=== PATIENT | male | born 1960 | race Caucasian/White ===

== ENCOUNTER → 2024-04-07 13:14 | Outpatient (REF) | payer BC, SELFPAY | LOC: RCS 13:14 | PROVIDERS: ATTENDING PHYSICIAN Internal Medicine Cardiovascular Disease; FAMILY PHYSICIAN Family Medicine | DX: I25.5 Ischemic cardiomyopathy (principal); I10 Essential (primary) hypertension; I50.22 Chronic systolic (congestive) heart failure; R10.13 Epigastric pain | CPT/HCPCS: 93017 ==

== ENCOUNTER 2024-04-08 16:05 | Inpatient (IN) | payer BC, SELFPAY ==
[2024-04-08] VITALS (28 sets, daily range): BP systolic 109–149; BP diastolic 77–101; BMI 25.2
[2024-04-08 04:23] LABS: % Basophils 0.5 % (0-2); % Eosinophils 3.7 % (0-6); % Immature Granulocytes 0.4 % (0-0.5); % Lymphocytes 21.1 % (20.5-51.1); % Monocytes 6.9 % (1.7-9.3); % Neutrophils 67.4 % (42.2-75.2); Absolute Eosinophils 0.2 10^3/uL (0-0.7); Absolute Lymphocytes 1.2 10^3/uL (1.2-3.4); Absolute Monocytes 0.4 10^3/uL (0.1-0.6); Absolute Neutrophils 3.8 10^3/uL (1.4-6.5); Hematocrit 44.2 % (39.0-52.0); Hemoglobin 16.3 g/dL (13.0-18.0); Mean Corp Hgb Conc. 36.9 g/dL (33.0-37.0); Mean Platelet Volume 9.8 fL (7.4-10.4); Nucleated Red Blood Cells % 0 % (-); Platelet Count 199 10^3/uL (130-400); Red Blood Cell Count 5.26 10^6/uL (4.70-6.10); Red Cell Dist. Width 12.1 % (11.5-14.5); White Blood Cell Count 5.7 10^3/uL (4.8-10.8)
[2024-04-08 04:37] LABS: ALT (SGPT) 27 U/L (0-50); AST (SGOT) 24 U/L (17-59); Albumin 4.6 g/dl (3.5-5.0); Alkaline Phosphatase 83 U/L (38-126); Blood Urea Nitrogen 15 mg/dl (9-20); Calcium 9.5 mg/dl (8.4-10.2); Carbon Dioxide 28 mmol/L (22-30); Chloride 103 mmol/L (98-107); Estimated Creatinine Clearance 92 ml/min; Glucose 124 mg/dl (70-99); Potassium 3.6 mmol/L (3.5-5.1); Sodium 142 mmol/L (135-145); Total Bilirubin 1.4 mg/dl (0.2-1.3); Total Protein 6.9 g/dl (6.3-8.2); eGFR > 60.00
[2024-04-08 04:44] LABS: Troponin I 0.019 ng/ml
--- NOTE | 2024-04-08 04:48 | ED.GENMED ---
History of Present Illness
General
Chief Complaint: Chest Pain
Source: patient
Exam Limitations: none
Time Seen by Provider: 04/08/24 04:06
Nursing documentation reviewed up to this point in time: agreed with
History of Present Illness
History of Present Illness:
This is a 64-year-old male that presents with substernal chest pain that began approximate 1 hour ago. Patient states that lately he has been having intermittent chest pain, especially with exertion. He was seen by Dr. Ramirez and had a stress
test yesterday. The stress test was unsuccessful and it was recommended that patient undergo a catheterization. He was supposed to be contacted this morning to schedule 1. Tonight he awakened from sleep with this substernal nonradiating chest
pain. Patient does have a cardiac history. He had a cardiac event in 2006 that resulted in a catheterization. Patient denies fever, chills, nausea or vomiting. Patient states that the pain is brought on with exertion. He states that he gets
chest pain when he walks his dogs. This is not typical of him. He does report a significant family history of cardiac disease. He has been on Plavix since 2006. Denies any other complaints at this time. He is a non-smoker.
Past History
Past History
ED Past Medical History: CAD, HTN, Hypercholesterolemia and VT
ED Past Surgical History: Cardiac (stents x2, revised once, Amy)
Social History
Tobacco: Non-smoker
Alcohol: Occasional
Drug: None
Personal:
Living: with family
Review of Systems
Review of Systems
Allergies reviewed?: Yes
All Other Systems: ROS reviewed and negative except as documented in HPI and ROS
Constitutional: Reports no symptoms
EENT: Reports no symptoms
Respiratory: Reports no symptoms
Cardiac: Reports chest pain
ABD/GI: Reports no symptoms
: Reports no symptoms
Musculoskeletal: Reports no symptoms
Skin: Reports no symptoms
Neurological: Reports no symptoms
Endocrine: Reports no symptoms
Hematologic/Lymphatic: Reports no symptoms
Psychiatric: Reports no symptoms
Phy Exam
General Physical Exam
General Presentation: well appearing and no apparent distress
General Skin: warm and dry
General Habitus: normal
General Mental: alert
General Hydration: appears well hydrated
ENT Exam
ENT Exam: EOMI, pharynx normal, neck supple and normocephalic
Eye Exam
Eye Exam: PERRL, cornea clear and conjunctiva normal
Cardiovascular Exam
Cardiovascular Exam: regular rate/rhythm, no edema, no murmur and normal peripheral pulses
Pulmonary Exam
Pulmonary Exam: lungs clear, no respiratory distress, no rales, no crackles, no rhonchi, no stridor, no wheezing and no cough
Gastrointestinal Exam
Gastrointestinal Exam: normal bowel sounds, non tender, soft, no organomegaly, no pulsatile mass and non distended
Neurological Exam
Neurological Exam: alert, oriented x3, no motor deficits and speech normal
Musculoskeletal Exam
Musculoskeletal Exam: full ROM and no edema
Skin Exam
Skin Exam: normal color, warm/dry, no rash and no petechia
Psychiatric Exam
Psychiatric Exam: normal mood/affect
Scores
Heart Score for Chest Pain Patients
STEMI patient?: No
History: Highly Suspicious
ECG: Normal
Age: >/= 65 years
Risk Factors: >/= 3 Risk Factors or History of CAD
Troponin: >1 - <3 x Normal Limit
Heart Score for Chest Pain Patients: 7
Heart Score Risk: 72.7 % MACE over next 6 weeks
Course
Orders/Labs/Results
Orders:
Orders
04/08/24 03:52
Electrocardiogram (*1) Urgent
Reason for Study: Chest Pain
Cardiac Monitoring- Treatment ONCE
EKG- Treatment ONCE
IV Insert/Care/Rem.- Treatment PRN
O2 Therapy [RESP] Urgent
Titrate/Wean O2 to maintain O2 sat greater than (%): 90
Special Instructions: Maintain sats >/=90%
Pulse Ox/spot Check [RESP] Urgent
Quantity: 1
Special Instructions: ON ROOM AIR
04/08/24 04:11
Complete Blood Count/With Diff Urgent
Comprehensive Metabolic Panel Urgent
Troponin I Urgent
Abnormal Lab Results
04/08/24
04:11
Glucose 124 H mg/dl
(70-99)
Total Bilirubin 1.4 H mg/dl
(0.2-1.3)
04/08/24 04:11
04/08/24 04:11
Vital Signs
Initial and Last Documented VS:
Initial Vital Signs
Pulse Resp
99 13
04/08/24 04:02 04/08/24 04:02
Last Documented Vital Signs
Pulse Resp BP Pulse Ox
91 13 137/97 96
04/08/24 04:30 04/08/24 04:30 04/08/24 04:08 04/08/24 04:30
*Critical Care Note
Total Time (30-74mins, 75-104mins- exclusive of procedures): Not Applicable
ED Attending Note
-
Portions of this chart may have been created with voice recognition software.� Occasional wrong word or��sound alike� substitutions may have occurred due to the inherent limitations of voice recognition software.
Discharge Plan
Departure
Patient Disposition: Admit
Date of Disposition: 04/08/24
Time of Disposition: 04:56
Admit to: IVU
Presentation/result/management discussed w/ accepting MD/DO: Hospitalist
Discharge Problem:
Chest pain
Prescriptions:
No Action
atenolol 25 MG tablet
25 mg PO DAILY
clopidogrel 75 MG tablet
75 mg PO DAILY
simvastatin 80 MG tablet
40 mg PO HS
aspirin 81 MG tablet,delayed release (DR/EC)
81 mg PO DAILY
lisinopril 5 MG tablet
5 mg PO DAILY
Referrals:
UNKNOWN - PT NOT,INTERVIEWE [Family Provider] -
Interventions
Interventions:
*Risk Screen - Suicide Last Done: 04/08/24 04:09
*General Assessment Last Done: 04/08/24 04:03
*Neglect/Abuse Screening Last Done: 04/08/24 04:09
ED- Fall Risk Assessment Last Done: 04/08/24 04:03
*ED COVID-19 Vaccine History Last Done: 04/08/24 04:03
ED- Cardiac Assessment Last Done: 04/08/24 04:03
Discharge Date and Time
Print Language: IRAQI
[2024-04-08] MEDS: ASPIRIN 325 MG PO (05:00)
--- NOTE | 2024-04-08 05:20 | HPS.HSE ---
Family Physician
-
Family Physician: INTERVIEWE UNKNOWN - PT NOT
Chief Complaint
-
Chest pain.
History of Present Illness
This is a 64-year-old male with history of CAD s/p cath 2006 with multiple stents on dual antiplatelet therapy, hypertension presenting to ED with chest pain.
Patient reports he has been having epigastric to substernal chest discomfort for the last 2 weeks. He reports that this is exacerbated by activity such as walking and is relieved by rest. He does not have dyspnea on exertion. He has no nausea or
vomiting. He was evaluated by his primary care physician which showed normal EKG and no acute abnormalities on his labs. He was pending a right upper quadrant ultrasound. When it was decided that he should see his nurse gynecology for the exertional
component of this epigastric discomfort.
Patient had a exercise stress test yesterday which he was unable to complete. Due to the failure of that Dr. Mathias scheduled for a cardiac cath this morning.
Patient reported 18 of vegetarian hamburger after oral in the evening. At around 12 midnight he woke up spontaneously and noticed epigastric discomfort again. This was not associated with any nausea vomiting or diaphoresis. He had no shortness of
breath. ED he is not when he stood up. He was told to come to the emergency department if he felt any chest discomfort pending he is cardiac cath.
Upon arrival in the emergency department 1 hour later he stated that the chest pain at that he is remarkably but it is still present and not reproducible with palpation.
Blood pressure was 140/100, pulse rate 89 satting 98% on room air. ECG showed normal sinus rhythm with a rate of 94 and no acute ischemic changes. Unchanged from prior. Troponin was 0.019. CBC was unremarkable. Chemistries only notable for a
bilirubin of around 1.4.
Medical History
Past Medical History
Past Medical History: Reports CAD (Status post 10 x 2) and HTN
Past Surgical History: Reports None
Social History
Tobacco: Non-smoker
Alcohol: Occasional
Drug: None
Personal:
Living: With Family
Employment: Employed
Family History
Family History: Not pertinent
Allergies / Home Medications
Allergies reflects when Allergies were last updated in [employer].
Home Medications with original date entered in [employer]
Allergy/Medication List:
Allergies
Allergy/AdvReac Type Severity Reaction Status Date / Time
NKA - No Known Allergies Allergy Unknown Uncoded 04/08/24 03:52
Home Medications
aspirin 81 mg tablet,delayed release 81 mg PO DAILY 10/29/10
atenolol 25 mg tablet 25 mg PO DAILY 10/29/10
clopidogrel 75 mg tablet 75 mg PO DAILY 10/29/10
Review of Systems
-
History Source: Patient
Constitutional: Reports No Symptoms
EENT: Reports No Symptoms
Respiratory: Reports No Symptoms
Cardiac: Reports Chest Pain
Abdomen/GI: Reports No Symptoms
: Reports No Symptoms
Musculoskeletal: Reports No Symptoms
Skin: Reports No Symptoms
Neurological: Reports No Symptoms
Endocrine: Reports No Symptoms
Hematologic/Lymphatic: Reports No Symptoms
Psych: Reports No Symptoms
Physical Exam
Vital Signs
Vital Signs
Pulse Resp BP Pulse Ox
91 13 137/97 96
04/08/24 04:30 04/08/24 04:30 04/08/24 04:08 04/08/24 04:30
Physical Exam
General: Well Developed, Well Nourished, No Apparent Distress, Comfortable and Conversant
HEENT: NormoCephalic, Anicteric, Moist mucous membranes and Atraumatic
Respiratory: Clear
Cardiac: S1/S2 and Regular Rhythm
Breast: Deferred by me
GI: Soft, Non Tender, Non Distended and Normal Bowel Sounds
Rectal: Deferred by Provider
Genito-urinary: Deferred by me
Musculoskeletal: No Clubbing, No Cyanosis and No Edema
Skin: Warm
Neuro: AO x 3 and Nonfocal/grossly intact
Hematologic/Lymphatic: No Lymphadenopathy
Psych: Calm
Laboratory Results
-
04/08/24 04:11
04/08/24 04:11
Laboratory Results
Total Bilirubin 1.4 mg/dl (0.2-1.3) H 04/08/24 04:11
AST 24 U/L (17-59) 04/08/24 04:11
ALT 27 U/L (0-50) 04/08/24 04:11
Alkaline Phosphatase 83 U/L (38-126) 04/08/24 04:11
Troponin I 0.019 ng/ml 04/08/24 04:11
Data Reviewed
-
Medical Tests (Nuc Med, Echo, EKG etc): Image Personally Visualized and interpreted
Lab Data: Labs Reviewed by me
Old Records: Reviewed
Impression/Plan
-
IMPRESSION:
64 y.o male with h/o CAD s/p AL and 2 stents presents to ED with substernal chest discomfort. Atypical in nature but has been in the setting of ongoing exertional chest discomfort relieved by rest with a failure of outpatient stress test and a
pending cardiac catheterization today. ECG non-ischemic. 1st trop is negative, 2nd trop pending.
PLAN:
1. Chest pain
- admit to telemetry observation
- cycle cardiac enzymes
- npo for now
- aspirin/statin/pavix continued
- ntg prn chest pain
- h2 blockade
- echo in am
- started on heparin per cardiology, cardiology consult
2. Elevated total bili of 1.4.
- pending outpatient RUQ u/s
- check direct bili
HTN/Cardiac
- continue entresto and atenolol
DVT PPX - lovenox sq
Code status - full code
[2024-04-08 07:05] LABS: HDL Cholesterol 41 mg/dl; LDL Cholesterol, Calculated 40 mg/dl; Total Cholesterol 91 mg/dl (50-199); Triglyceride 50 mg/dl (10-149); Very Low Density Lipoprotein 10 mg/dl (0-30)
[2024-04-08 07:12] LABS: Total Bilirubin 1.1 mg/dl (0.2-1.3)
[2024-04-08 07:16] LABS: Troponin I 0.027 ng/ml
[2024-04-08] MEDS: HEPARIN 25000 UNITS/250 ML IV ×2 (07:19→16:08)
--- NOTE | 2024-04-08 08:04 | CON.CAR ---
Consultation
Consultation Request
Date/Time Consultation Requested: 04/08/24
Date/Time Consultation Performed: 04/08/24
Requesting Provider: Dr Harley
Performing Provider: Dr Mathias
Reason for Consultation: Chest pain
Medical History
-
Chief Complaint: Chest pain
History of Present Illness:
64-year-old gentleman with a past medical history of ischemic cardiomyopathy with mildly reduced EF of 50%, CAD status post prior PCI to the LAD in 2004 and 2006, hypertension and hyperlipidemia presents for evaluation of chest pain. 2 weeks ago,
the patient began having abdominal pain. He sought care at his primary care doctor and workup is underway. However he then began to notice that when he walked his dog, during the walk he would have burning chest pain that resolved with rest. He
called his primary bolt labeler Dr. Mathias and an ETT was ordered. Patient underwent stress testing 04/07/2024 resulting in a high risk test with [address] segment depressions, exertional chest pain which was the reason for stopping the test at 7
minutes. Of note in the past he had been able to go 13 minutes on her treadmill test. After eating a spicy meal last night he had recurrent abdominal pain so he sought care because he was not sure if this was his chest pain. Currently has no
chest pain just diffuse abdominal pain. He recently started on omeprazole with his primary care doctor and this seems to have helped but not completely alleviated his abdominal symptoms. Of note patient is on long-term dual antiplatelet therapy
after stopping Plavix in 2006 resulted in NH with recurrent thrombosis of the LAD and subsequent repeat PCI.
Past Medical History
Past Medical History: CAD (Prior PCI to the LAD 2004_. Dapt stopped with AMI and recurrent PCI in 2006), CHF (Ischemic cardiomyopathy with mildly reduced EF 50%), HTN and Hypercholesterolemia
Social History
Tobacco: Non-Smoker
Alcohol: Daily
Family History
Family History: Early CAD (Father NH in his 40s)
Allergies / Home Medications
Allergy/AdvReac Type Severity Reaction Status Date / Time
NKA - No Known Allergies Allergy Unknown Uncoded 04/08/24 03:52
�Medication �Instructions �Recorded �Confirmed �Type
aspirin 81 mg tablet,delayed 81 mg PO DAILY 10/29/10 04/08/24 History
release
atenolol 25 mg tablet 25 mg PO DAILY 10/29/10 04/08/24 History
clopidogrel 75 mg tablet 75 mg PO DAILY 10/29/10 04/08/24 History
Review of Systems
-
All other systems: Negative unless noted
Physical Exam
Vital Signs
Pulse Resp BP Pulse Ox
85 11 149/101 97
04/08/24 05:15 04/08/24 05:15 04/08/24 05:03 04/08/24 05:15
Lab Results
04/08/24 04:11
04/08/24 04:11
Troponin I 0.027 ng/ml D 04/08/24 06:41
Physical Exam
General: Well Developed, Well Nourished, No Apparent Distress, Comfortable and Respiratory Distress
HEENT: Normocephalic
Respiratory: Clear, Wheezes, Crackles and Rhonchi
Cardiac: S1/S2 and Regular Rhythm; Negative Murmur, Rub, Peripheral Edema or JVD
GI: Soft, Non Tender, Non Distended and Normal Bowel Sounds
Genito-urinary: No Costovertebral Tender
Musculoskeletal: No Clubbing, No Cyanosis and No Edema
Neuro: AO x 3
Impression / Plan
-
64-year-old gentleman with a past medical history of CAD status post PCI in 2004 and 2006 of the LAD, mild the reduced ejection fraction with an EF of 50%, hypertension and hyperlipidemia presents for evaluation of abdominal and chest pain in the
setting of a high risk stress test on 04/07/2024.
ACS:
-There is an exertional nature to the chest pain which is concerning, however it is described as a burning sensation. Overnight, he had recurrent pain. Additionally he has been struggling with abdominal pain. Symptoms may be GI related, but
certainly further evaluation with cardiac catheterization is indicated given the presence of persistent symptoms,high risk stress test on 04/07/2024, and mildly upward trending troponin.
-Please keep n.p.o. will add to cardiac catheterization schedule.
-Continue DAPT and heparin drip has been started will continue until catheterization.
-We will add lipid panel
-continue bb, statin
-update echo
CAD: Prior PCI to LAD x 2 in 2004 and then in 2006 in the setting of acute stent thrombosis after stopping DAPT.
-continue dapt
Ischemic CMY: EF 50%
-euvolemic
-continue Entresto, BB
Abdominal Pain:
-seems to be a separate issue
-onofre as per medicine.
-
TTE 07/27/22 CONCLUSIONS
LV ejection fraction is is approximately 50%, by visual assessment. Mid to
distal anteroseptal, mid anteroseptal, apical septal, and apical severe
hypokinesis.
Normal right ventricular size and function.
No significant valvular disease.
Compared to previous echo on 01/03/2018, there is a slight improvement in LVEF
(previously 45%).
Data Reviewed
-
EKG: Tracing Personally Visualized and interpreted (EKG tracing shows normal sinus rhythm prior septal infarct there)
Labs: Labs Reviewed by me (Troponin 0.019-0.027)
[2024-04-08] MEDS: PLAVIX 75 MG PO (08:19)
[2024-04-08 09:03] LABS: Glycohemoglobin (HgbA1c) 5.1 % (4.0-5.6)
[2024-04-08] MEDS: ENTRESTO 49 MG/51 MG 1 TAB PO ×2 (09:11→21:09)
[2024-04-08] MEDS: TENORMIN 25 MG PO (09:12)
--- NOTE | 2024-04-08 09:46 | W.PN.UPDATE ---
Update Note
Progress Note Update
I saw and evaluated the patient. I reviewed the resident�s note and agree with findings and plan as documented in the resident�s note.
Currently denies chest pain or abdominal pain.
Gen: NAD, AAOx3.
Eyes: EOMI, PERRLA, no scleral icterus.
Neck: supple.
CV: RRR, +S1/S2, no m/r/g.
Resp: CTAB, no rales, wheezes, or rhonchi.
Abd: +BS, soft, NT, ND
Skin: No rashes.
Neuro: CN 2-12 intact, non-focal.
Psych: Normal mood and affect.
Chest pain:
-trops NEG
-CAD s/p prior PCI to the LAD in 2004 and 2006
-discussed with cards, cath today
-cont heparin gtt/ASA/BB/Plavix/statin
Chronic HFmrEF:
-cont BB/Entresto
Essential HTN:
-cont BB/Entresto
HLD:
-cont statin
--- NOTE | 2024-04-08 10:09 | W.PN.HOSP.TC ---
Today's Communication/Plan
-
Cardiac cath today
Assessment / Plan
Assessment / Plan
Impression
Chest pain
Chronic HFmrEF
Essential hypertension
Hyperlipidemia
Plan
Chest pain
Likely due to ACS
CAD s/p multiple stents in 2004 and 2006
Cardiology on board
Patient scheduled for cardiac cath this a.m.
Troponin 0.019, 0.027
Trend troponin level
Continue heparin GTT, aspirin, beta-blockers, Plavix, statin
Chronic HFmrEF
Continue beta-blockers and Entresto
Essential hypertension
Continue beta-peter Entresto
Hyperlipidemia continue statin
Full code
DVT prophylaxis heparin
Anticipated Discharge: 24 - 48 hours
Subjective/Interval History
-
Date of Service: April 08, 2024
64-year-old gentleman past medical history of ischemic cardiomyopathy with mildly reduced EF of 50 presented with chest pain. 2 days ago patient began to have abdominal pain. He had a recent stress test which she was unable to perform on on
04/07/2024. Patient states that his chest pain aggravates with activity and improves with rest. He also stated that after eating a spicy meal last night he had recurrent abdominal pain and was not sure if it was his chest pain so he came to the
emergency room for evaluation.
Objective Data
-
Labs:
Laboratory Results
04/08/24 04/08/24 04/08/24
04:11 06:41 13:00
WBC 5.7
Hgb 16.3
Hct 44.2
Plt Count 199
APTT 26.0 Pending
Sodium 142
Potassium 3.6
Chloride 103
Carbon Dioxide 28
BUN 15
Creatinine 0.9
Glucose 124 H
Calcium 9.5
Total Bilirubin 1.4 H 1.1
AST 24
ALT 27
Alkaline Phosphatase 83
Vital Signs:
Vital Signs
Pulse Resp BP Pulse Ox
71 14 123/89 97
04/08/24 10:00 04/08/24 10:00 04/08/24 10:00 04/08/24 10:00
Review of Systems
-
All other systems: Reviewed and negative
Physical Exam
-
General: Comfortable
HEENT: Normocephalic and Atraumatic
Cardiac: Regular Rhythm and S1/S2
GI: Soft, Nontender, Nondistended and Normal Bowel Sounds
Musculoskeletal: No Edema
Neuro: AO x 3
Data Reviewed
-
Labs: Labs Reviewed by me and Discussed with Physician
--- NOTE | 2024-04-08 11:23 | ITS.CL.CATH ---
[facility] - Catheterization
Cardiac Catheterization
Procedure Report:
CARDIAC CATHETERIZATION REPORT
Date of Procedure: 04/08/2024
Referring: Urbano Vela M.D.
INDICATION: Known coronary artery disease, high risk stress test, resting chest pain (unstable angina).
PROCEDURE:
1. Left heart catheterization.
2. Coronary angiography.
3. Successful IVUS of the left main coronary artery.
A total of 41 minutes of procedural/moderate sedation was utilized. An independent biomedical equipment tech was present to assist with and help manage the patient's level of consciousness and physiologic status.
ACCESS:
1. 6 [place] right common femoral artery using modified Seldinger technique with a micropuncture kit under ultrasound guidance. Ultrasound image obtained.
CATHETERS:
1. 5 [place] JR4.
2. 5 [place] JL 3.5.
3. 6 [place] JL 4.0 guiding catheter.
HEMODYNAMIC DATA
Weight (kg): 86.6
AO (s/d/x, mmHg): 133/83/105
LV (s/x mmHg): 135/10 (A wave to 22)
LEFT VENTRICULOGRAPHY: Not performed.
CORONARY ANGIOGRAPHY
Dominance: Right.
Left Main: Normal size, bifurcating vessel. There is a 40% ostial lesion.
LAD: Normal size vessel giving rise to 1 large diagonal which subsequently bifurcates into a medial branch and a lateral branch. A stent is patent in the proximal and mid LAD. There is critical, 90% in-stent restenosis in the proximal stent
margin leading into the origin of the large diagonal, after which point the stent is chronically totally occluded. There is a large epicardial collateral from the terminal circumflex to the distal diagonal. There are collaterals from the distal
RCA to the distal true LAD.
Ramus: Congenitally absent.
Circumflex: Large size, nondominant vessel giving rise to 1 significant marginal before terminating as a large posterolateral branch. As previously noted, there is a large epicardial collateral from the posterolateral branch to the distal
diagonal. There is a hazy, 50-60% lesion in the origin of OM1.
RCA: Large size, dominant vessel. The proximal vessel is severely tortuous with a hairpin turn in the proximal margin. There is a 70-80% lesion in the mid RCA with luminal irregularities throughout the distal vessel. Faint collaterals are seen
supplying the mid and distal LAD.
INTERVENTION(S)
1. Successful IVUS of the ostial left main coronary artery, demonstrating nonocclusive stenosis (MLA = 15.7 mm�).
Narrative:
The decision was made to perform intracoronary imaging. The diagnostic catheter was removed over a wire and exchanged for 6 [place] JR4 guiding catheter. The guiding catheter was advanced into the ascending aorta and seated in the left main coronary
artery. Additional heparin was given to obtain an ACT greater than 250 seconds. After crossing the lesion with a coronary wire, an IVUS catheter was advanced through the guiding catheter and into the ostium of the artery. Ring down was performed
once the imaging crystal was no longer inside of the guiding catheter. The IVUS catheter was advanced into the proximal circumflex. Intravascular ultrasound was performed in a retrograde fashion using a slow pullback. Intracoronary imaging
demonstrated atherosclerosis throughout the left main coronary artery that was generally nonocclusive. We spent a significant amount of time focused on the ostium of the left main. This demonstrated a densely calcified, eccentric plaque that was
nonocclusive. The minimal luminal area in the ostium of the left main coronary artery was 15.7 mm�. The IVUS catheter was withdrawn. Final coronary angiography demonstrated no evidence of dissection or artery perforation.
Closure Device: 6 [place] Angio-Seal in the right common femoral artery.
Radiation (mGy): 556.21
DAP (cm2.Gy): 37.1750
Fluoroscopy time (minutes): 3.9
CONCLUSIONS
1. Right dominant circulation with a nonocclusive, 40% lesion of the ostial left main, a critical, 90% in-stent restenosis lesion in the proximal LAD stent leading into a large diagonal, followed by chronic total occlusion of the stent into the
true LAD, a hazy, 50-60% lesion in the origin of OM1 and a 70-80% lesion in the mid RCA after severe, hairpin turn tortuosity in the proximal RCA. The distal diagonal is collateralized by a large epicardial collateral from the terminal left
posterolateral branch. The mid and distal LAD are supplied by faint collaterals from the distal RCA.
2. Normal filling pressures (LVEDP = 10 mmHg at 86.6 kg) with evidence of diastolic dysfunction (A wave to 22 mmHg).
3. Abnormal vessel loop versus stenosis in the right radial artery, precluding cardiac catheterization from this approach.
RECOMMENDATIONS:
1. Expectant management after cardiac catheterization via right common femoral approach.
2. Limited weight bearing for one week.
3. Consultation with CT surgery regarding optimal revascularization strategy.
4. Consider cardiac MRI to evaluate myocardial viability.
Copy to: Urbano Vela M.D., Rupal Brandt D.O., Deven Mathias M.D.
Dylan Rdz DO, FACC, FACP
--- NOTE | 2024-04-08 11:39 | CONSULT.CT ---
Consultation
-
Date/Time Consultation Requested: 04/08/24 1130
Date/Time Consultation Performed: 04/08/24 1148
Requesting Provider: Dr. Rdz
Performing Provider: Cora FLORES for Dr. Mohr
Reason for Consultation: CABG Eval
Patient History
Physicians
Family Physician: None
Outpatient Caddy/Caddie Supervisor: Dr. Mathias
Inpatient Caddy/Caddie Supervisor: Dr. Mathias
History of Present Illness
64-year-old male with past medical history significant for CAD s/p PCI to LAD in 2004 and recurrent PCI in 2006, HTN, ischemic cardiomyopathy, HLD presented to [facility] after having complaints of chest pain and abdominal pain. About 2
weeks ago patient began complaining of abdominal pain and was started on omeprazole. However he began to notice that he had burning chest pain with activity and it was relieved by rest. He called his lab intern Dr. Mathias and he was sent for
a stress test. Stress test on 04/07 showed a [address] segment depression and exertional chest pain therefore the test was stopped after 7 minutes. He was taken to the CCL today and MVD was found. CT surgery was consulted for surgical evaluation.
Of note, patient is on long-term dual antiplatelet therapy due to an event in 2006 when he stopped his Plavix is resulted in a AL due to recurrent thrombosis of the LAD.
TTE on 04/08:
CONCLUSIONS
Left ventricular ejection fraction is 45-50%. Mid to distal anteroseptal, mid
anteroseptal, apical septal, and apical severe hypokinesis.
Normal right ventricular size and function.
No significant valvular disease.
LHC on 04/08
1. Right dominant circulation with a nonocclusive, 40% lesion of the ostial left main, a critical, 90% in-stent restenosis lesion in the proximal LAD stent leading into a large diagonal, followed by chronic total occlusion of the stent into the
true LAD, a hazy, 50-60% lesion in the origin of OM1 and a 70-80% lesion in the mid RCA after severe, hairpin turn tortuosity in the proximal RCA. The distal diagonal is collateralized by a large epicardial collateral from the terminal left
posterolateral branch. The mid and distal LAD are supplied by faint collaterals from the distal RCA.
2. Normal filling pressures (LVEDP = 10 mmHg at 86.6 kg) with evidence of diastolic dysfunction (A wave to 22 mmHg).
3. Abnormal vessel loop versus stenosis in the right radial artery, precluding cardiac catheterization from this approach.
Past Medical History
Past Medical History: CAD, HTN, Hypercholesterolemia and AL
Past Surgical History
Past Surgical History: PCI/Stent
Dental History
regular follow ups q6 months
Family History
Mother: N/A
Father: at Age (40) and Cause of (AL)
Family Medical History: CAD
Social History
Alcohol: Occasional (Beer)
Drug: None
Tobacco: Non-Smoker
Personal:
Living: With Spouse
Employment: Employed
Allergies
Allergy/AdvReac Type Severity Reaction Status Date / Time
NKA - No Known Allergies Allergy Unknown Uncoded 04/08/24 03:52
Home Medications
�Medication �Instructions �Recorded �Confirmed �Type
aspirin 81 mg tablet,delayed 81 mg PO DAILY 10/29/10 04/08/24 History
release
atenolol 25 mg tablet 25 mg PO DAILY 10/29/10 04/08/24 History
clopidogrel 75 mg tablet 75 mg PO DAILY 10/29/10 04/08/24 History
atorvastatin 40 mg tablet (Lipitor) 40 mg PO QPM 04/08/24 04/08/24 History
cyanocobalamin (vitamin B-12) 1,000 mcg PO DAILY 04/08/24 04/08/24 History
1,000 mcg tablet
famotidine 40 mg tablet (Pepcid) 40 mg PO HS 04/08/24 04/08/24 History
omeprazole 20 mg tablet,delayed 20 mg PO DAILY 04/08/24 04/08/24 History
release
sacubitril 49 mg-valsartan 51 mg 1 tab PO BID 04/08/24 04/08/24 History
tablet (Entresto)
Review of Systems
-
History Source: Patient
General: Reports No Symptoms
HEENT: Reports No Symptoms
Respiratory: Reports No Symptoms
Cardiac: Reports Chest Pain and CAD
Abdomen/GI: Reports Abdominal Pain
: Reports No Symptoms
Musculoskeletal: Reports No Symptoms
Skin: Reports No Symptoms
Neurological: Reports No Symptoms
Vascular: Reports No Symptoms
Physical Exam
Vital Signs
Pulse 68 04/08/24 11:23
Rhythm: Normal sinus rhythm 04/08/24 07:30
Resp Rate 16 04/08/24 11:23
Blood pressure 119/84 04/08/24 11:23
Blood pressure extremity used: Left upper arm 04/08/24 11:23
Position: Lying 04/08/24 11:23
MAP (cuff-Yesenia Monitor) 101 04/08/24 10:00
SaO2 99 04/08/24 11:23
Oxygen Mode of Delivery Room air 04/08/24 11:23
Can the patient verbally communicate their pain? Yes 04/08/24 11:23
Pain scale ratin 04/08/24 11:23
Actual Weight 86.6 kg 04/08/24 04:03
Body Mass Index (BMI) 25.2 04/08/24 04:03
Labs
04/08/24 04:11
04/08/24 04:11
APTT 26.0 Sec (23.4-35.0) 04/08/24 06:41
Hemoglobin A1c 5.1 % (4.0-5.6) 04/08/24 06:41
Troponin I 0.027 ng/ml D 04/08/24 06:41
Exam
General: Well Developed, Well Nourished and No Apparent Distress
HEENT: Normocephalic
Respiratory: Clear
Cardiac: S1/S2
GI: Soft and Non Tender
Rectal: Deferred by Provider
Skin: Warm
Neuro: AO x 3
Lymph: No Lymphadenopathy
Psych: Calm
Assessment / Plan
-
64-year-old male with past medical history above presented with episodes of chest pain with activity and an abnormal stress test. Left heart cath revealed multivessel disease and CT surgery was consulted for surgical evaluation.
#CAD
-Patient's case will be discussed with attending physician. Further details regarding surgical timing intervention will be determined after attending physicians full evaluation
-Routine preoperative cardiothoracic surgery orders will be initiated.
-STS risk stratification score will be calculated after preoperative testing is complete
-Continue nitroglycerin and heparin gtt per cardiology
- will discuss viability testing with CT surgeon
-Last dose of plavix on 04/08/24
#ICM
- Cont BB/Entresto
>>Entresto will need to be DC 48hs pre-op
>>Surgical timing TBD
[2024-04-08] MEDS: NSS 1000 IV (12:32)
[2024-04-08 13:53] LABS: APTT > 200 Sec (23.4-35.0)
[2024-04-08 14:02] LABS: Troponin I 0.038 ng/ml
[2024-04-08 14:47] LABS: ACT-LR - POC > 397 Seconds (116-155)
--- NOTE | 2024-04-08 15:04 | PTCARENOTE ---
Report given to Leanne KEE at this time. Taking pt /valuables to CT then dropping off in IVU.
--- NOTE | 2024-04-08 16:24 | CM ---
Chart reviewed. Patient is independent of ADLS, lives with his in a 2 S[address], 1 BENNY, 0 DME. Patient being evaluated by CT Surgery with timing TBD. Plan is for the patient to return home with CT Transitional RN. CM to follow
[2024-04-08] MEDS: LIPITOR 40 MG PO (16:38)
--- NOTE | 2024-04-08 16:40 | PTCARENOTE ---
Received pt at 1530 from brine room laborer, post CT scan. VSS. Right radial attempted access site w/ dressing intact. Right groin dressing clean, dry and intact. Pt denies any chest discomfort. Heparin drip initiated at 1609 at 13ml/hr. Will monitor.
[2024-04-08 22:39] LABS: APTT 133.2 Sec (23.4-35.0)
--- NOTE | 2024-04-09 01:28 | PTCARENOTE ---
Assumed care of patient at change of shift. Tele remains SR. Denies any pain or discomfort. Right radial Tegaderm intact and Right groin dressing C/D/I. B/l DP pulses palpable. IV heparin gtt infusing, next ptt due at 05:50. Patient aware of POC,
and can make needs known. Ambulates self in room w/out difficulty. Call hawley within reach.
[2024-04-09 04:07] VITALS: BP 111/73
[2024-04-09 06:18] LABS: Hemoglobin 16.1 g/dL (13.0-18.0); Mean Corp Hgb Conc. 35.8 g/dL (33.0-37.0); Mean Corpuscular Hgb 30.3 pg (27.0-31.0); Mean Corpuscular Volume 84.7 fL (80.0-94.0); Mean Platelet Volume 10.1 fL (7.4-10.4); Platelet Count 174 10^3/uL (130-400); Red Blood Cell Count 5.31 10^6/uL (4.70-6.10); Red Cell Dist. Width 12.1 % (11.5-14.5)
[2024-04-09 06:26] LABS: INR 1.05; PT 14.2 Sec (11.4-14.6)
[2024-04-09 06:28] LABS: APTT 83.7 Sec (23.4-35.0)
[2024-04-09 06:43] LABS: ALT (SGPT) 22 U/L (0-50); AST (SGOT) 20 U/L (17-59); Alkaline Phosphatase 74 U/L (38-126); Blood Urea Nitrogen 14 mg/dl (9-20); Calcium 9.3 mg/dl (8.4-10.2); Carbon Dioxide 29 mmol/L (22-30); Chloride 103 mmol/L (98-107); Estimated Creatinine Clearance 83 ml/min; Glucose 92 mg/dl (70-99); Potassium 4.1 mmol/L (3.5-5.1); Sodium 138 mmol/L (135-145); Total Bilirubin 1.9 mg/dl (0.2-1.3); Total Protein 6.4 g/dl (6.3-8.2); eGFR > 60.00
--- NOTE | 2024-04-09 07:21 | W.PN.HOSP.TC ---
Today's Communication/Plan
-
await for CT surgeon decision
Assessment / Plan
Assessment / Plan
Impression
Acute coronary syndrome
Chronic HFmrEF
Essential hypertension
Hyperlipidemia
Plan
Acute coronary syndrome
S/p LHC yesterday - 90% in-stent restenosis lesion in the proximal LAD stent , 70-80% lesion in the mid RCA
Multivessel disease
During the procedure CT surgery was consulted for optimal revascularization strategy
Continue nitroglycerin, heparin GTT, aspirin, beta-blockers, statin
Hold Plavix
Cardiology following
CT surgery following
Chronic HFmrEF
Continue beta-blockers and Entresto
Essential hypertension
Continue beta-peter Entresto
Hyperlipidemia
continue statin
Full code
DVT prophylaxis heparin
Anticipated Discharge: > 48 hours
Subjective/Interval History
-
Date of Service: April 09, 2024
no over night events
Objective Data
-
Labs:
Laboratory Results
04/08/24 04/09/24 04/09/24
22:19 05:52 06:00
WBC 6.0
Hgb 16.1
Hct 45.0
Plt Count 174
PT 14.2
INR 1.05
APTT 133.2 H 83.7 H Cancelled
Sodium 138
Potassium 4.1
Chloride 103
Carbon Dioxide 29
BUN 14
Creatinine 1.0
Glucose 92
Calcium 9.3
Total Bilirubin 1.9 H
AST 20
ALT 22
Alkaline Phosphatase 74
04/09/24
11:55
WBC
Hgb
Hct
Plt Count
PT
INR
APTT Pending
Sodium
Potassium
Chloride
Carbon Dioxide
BUN
Creatinine
Glucose
Calcium
Total Bilirubin
AST
ALT
Alkaline Phosphatase
Vital Signs:
Vital Signs
Temp Pulse Resp BP Pulse Ox
98.1 F 78 18 111/73 98
04/09/24 04:09 04/09/24 05:00 04/09/24 04:09 04/09/24 04:07 04/09/24 04:09
I&O
04/08/24 04/09/24 04/10/24
06:59 06:59 06:59
Intake Total 1236 / 1236
Balance 1236 / 1236
Review of Systems
-
All other systems: Reviewed and negative
Physical Exam
-
General: No Apparent Distress
HEENT: Normocephalic and Atraumatic
Respiratory: Clear to Auscultation
Cardiac: Regular Rhythm and S1/S2
Musculoskeletal: No Edema
Neuro: AO x 3
Psych: Calm
Data Reviewed
-
Labs: Labs Reviewed by me and Discussed with Physician
[2024-04-09 07:31] VITALS: BP 111/86
--- NOTE | 2024-04-09 08:29 | W.PN.CD ---
Today's Communication / Plan
-
discussion IC and CT surgery
hold clopidogrel
continue hep
Impression / Plan
-
64-year-old gentleman with a past medical history of CAD status post PCI in 2004 and 2006 of the LAD, mild the reduced ejection fraction with an EF of 50%, hypertension and hyperlipidemia presents for evaluation of abdominal and chest pain in the
setting of a high risk stress test on 04/07/2024.
ACS:
-Cath with MVD, atretic LAD, CT surgery c/s placed
-Interventional and CT surgery discussing best approach.
-holding clopidogrel and continuing heparin gtt
-We will add lipid panel
-continue bb, statin
CAD: Prior PCI to LAD x 2 in 2004 and then in 2006 in the setting of acute stent thrombosis after stopping DAPT.
-as above
Ischemic CMY: EF 50%
-echo 45-50% 04/08/24
-euvolemic (LVEDP 10)
-continue BB,Entresto
Abdominal Pain:
-Improved
-seems to be a separate issue
-onofre as per medicine.
Subjective:
He is feeling well without issue.
Cath:04/08/24
HEMODYNAMIC DATA
Weight (kg): 86.6
AO (s/d/x, mmHg): 133/83/105
LV (s/x mmHg): 135/10 (A wave to 22)
CONCLUSIONS
1. Right dominant circulation with a nonocclusive, 40% lesion of the ostial left main, a critical, 90% in-stent restenosis lesion in the proximal LAD stent leading into a large diagonal, followed by chronic total occlusion of the stent into the
true LAD, a hazy, 50-60% lesion in the origin of OM1 and a 70-80% lesion in the mid RCA after severe, hairpin turn tortuosity in the proximal RCA. The distal diagonal is collateralized by a large epicardial collateral from the terminal left
posterolateral branch. The mid and distal LAD are supplied by faint collaterals from the distal RCA.
2. Normal filling pressures (LVEDP = 10 mmHg at 86.6 kg) with evidence of diastolic dysfunction (A wave to 22 mmHg).
3. Abnormal vessel loop versus stenosis in the right radial artery, precluding cardiac catheterization from this approach.
RECOMMENDATIONS:
1. Expectant management after cardiac catheterization via right common femoral approach.
2. Limited weight bearing for one week.
3. Consultation with CT surgery regarding optimal revascularization strategy.
4. Consider cardiac MRI to evaluate myocardial viability.
TTE 04/08/24 CONCLUSIONS
Left ventricular ejection fraction is 45-50%. Mid to distal anteroseptal, mid
anteroseptal, apical septal, and apical severe hypokinesis.
Normal right ventricular size and function.
No significant valvular disease.
No significant change since the prior study of 07/27/22.
TTE 07/27/22 CONCLUSIONS
LV ejection fraction is is approximately 50%, by visual assessment. Mid to
distal anteroseptal, mid anteroseptal, apical septal, and apical severe
hypokinesis.
Normal right ventricular size and function.
No significant valvular disease.
Compared to previous echo on 01/03/2018, there is a slight improvement in LVEF
(previously 45%).
Physical Exam
Vital Signs/Labs
Vital Signs
Temp Pulse Resp BP Pulse Ox
97.9 F 78 20 111/73 97
04/09/24 07:30 04/09/24 05:00 04/09/24 07:30 04/09/24 04:07 04/09/24 07:30
04/08/24 04/09/24 04/10/24
06:59 06:59 06:59
Actual Weight 86.6 kg 86.6 kg
04/09/24 05:52
04/09/24 05:52
PT 14.2 Sec (11.4-14.6) 04/09/24 05:52
INR 1.05 04/09/24 05:52
APTT Cancelled 04/09/24 06:00
Triglycerides 50 mg/dl (10-149) 04/08/24 06:41
LDL Cholesterol, Calc 40 mg/dl 04/08/24 06:41
VLDL Cholesterol, Calc 10 mg/dl (0-30) 04/08/24 06:41
HDL Cholesterol 41 mg/dl 04/08/24 06:41
LAB Results
04/08/24 04/08/24 04/08/24
04:11 06:41 09:00
Troponin I 0.019 0.027 D Cancelled
04/08/24
13:10
Troponin I 0.038 H* D
Physical Exam
Constitutional: No acute distress
Cardiovascular: Rhythm & rate is regular, Pedal edema is absent, JVD pressure is normal and Systolic murmur absent
Respiratory: Respiratory effort normal, Lungs clear to auscul., Wheeze Absent, Crackles Absent and Rhonchi Absent
Neuro/Psych: AO x 3
Data Reviewed
-
Date of Service: April 09, 2024
Medical Decision Making: Review of Case with other Provider (d/w Dr Rdz from , he will d/w CT SURGERY and return to discuss with patient)
[2024-04-09] MEDS: TENORMIN 25 MG PO (08:41)
[2024-04-09] MEDS: ENTRESTO 49 MG/51 MG 1 TAB PO ×2 (08:42→19:27)
[2024-04-09] MEDS: PEPCID 40 MG PO (08:42)
[2024-04-09] MEDS: ASPIR LOW (ENTERIC COATED) 81 MG PO (08:42)
[2024-04-09 12:01] VITALS: BP 110/78
--- NOTE | 2024-04-09 12:03 | W.PN.UPDATE ---
Update Note
Progress Note Update
I saw and evaluated the patient. I reviewed the resident�s note and agree with findings and plan as documented in the resident�s note.
Currently denies chest pain or abdominal pain.
Gen: NAD, AAOx3.
Eyes: EOMI, PERRLA, no scleral icterus.
Neck: supple.
CV: RRR, +S1/S2, no m/r/g.
Resp: CTAB, no rales, wheezes, or rhonchi.
Abd: +BS, soft, NT, ND
Skin: No rashes.
Neuro: CN 2-12 intact, non-focal.
Psych: Normal mood and affect.
Chest pain:
-trops NEG
-CAD s/p prior PCI to the LAD in 2004 and 2006
-cath 04/08/24 with MVD, atretic LAD
-cont heparin gtt/ASA/BB/statin
-plavix on hold (washout)
-CT surg and interventional cardiology discussing plan going forward
Chronic HFmrEF:
-cont BB/Entresto
Essential HTN:
-cont BB/Entresto
HLD:
-cont statin
FULL/Heparin
[2024-04-09 12:46] LABS: APTT 70.2 Sec (23.4-35.0)
[2024-04-09] MEDS: HEPARIN 25000 UNITS/250 ML IV (13:56)
--- NOTE | 2024-04-09 13:57 | CM ---
Chart reviewed. Patient is independent of ADLS, lives with his in a 2 STH, 1 BENNY, 0 DME[address] evaluation to determine needs for a CABG. Plan is for the patient to return home. CM to follow
--- NOTE | 2024-04-09 14:40 | PTCARENOTE ---
Discussed the use of the incentive spirometry. Discussed IV heparin protocol. Will monitor.
[2024-04-09 15:58] VITALS: BP 126/84
[2024-04-09] MEDS: LIPITOR 40 MG PO (18:16)
[2024-04-09 19:24] VITALS: BP 104/70
[2024-04-09 20:00] LABS: APTT 97.4 Sec (23.4-35.0)
[2024-04-09 22:07] VITALS: BP 108/73
--- NOTE | 2024-04-09 23:50 | PTCARENOTE ---
Tele remains NSR-Sinus joselyn, HR in the 50-60's at rest. Patient remains pain free. IV Heparin gtt infusing at 12ml/hr, next ptt due at 01:40. Right radial site MARY, and slightly ecchymotic. (+) radial pulse. Right groin site MARY, and soft upon
palpation. Bilateral dp pulses palpable. POC ongoing, call hawley within reach.
[2024-04-10] VITALS (7 sets, daily range): BP systolic 105–130; BP diastolic 72–96
[2024-04-10 02:22] LABS: APTT 104.6 Sec (23.4-35.0)
--- NOTE | 2024-04-10 07:52 | W.PN.CD ---
Addendum entered and electronically signed by Dylan Rdz DO 04/13/24 18:53:
Response to CDI: Elevated troponin due to NSTEMI.
Original Note:
Today's Communication / Plan
-
Change atenolol to metoprolol.
Clopidogrel washout.
CABG planning.
Impression / Plan
-
Impression/Plan: 64-year-old gentleman with a past medical history of CAD status post PCI in 2004 and 2006 of the LAD, mild the reduced ejection fraction with an EF of 50%, hypertension and hyperlipidemia presents for evaluation of abdominal and
chest pain in the setting of a high risk stress test on 04/07/2024, found to have multivessel CAD.
#ACS
-Acute.
-Cath with MVD, atretic LAD with severe pLAD ISR, highly tortuous pRCA.
-Discussed with CT surgery. Tentative plan for CABG next week after clopidogrel washout.
-Continue heparin gtt, aspirin, atorvastatin.
#CAD
-Chronic, progressive.
-Prior PCI to LAD x 2 in 2004 and then in 2006 in the setting of acute stent thrombosis after stopping DAPT.
#Ischemic cardiomyopathy
-Chronic, LVEF 45-50%.
-Euvolemic.
-Change atenolol to metoprolol succinate 25 mg daily.
-Started on sacubitril-valsartan.
#Abdominal Pain
-Improved.
-Management per internal medicine.
Subjective/Interval History:
No acute events.
No subjective complaints.
Brief ATach on telemetry.
DATA:
Cath:04/08/24
HEMODYNAMIC DATA
Weight (kg): 86.6
AO (s/d/x, mmHg): 133/83/105
LV (s/x mmHg): 135/10 (A wave to 22)
CONCLUSIONS
1. Right dominant circulation with a nonocclusive, 40% lesion of the ostial left main, a critical, 90% in-stent restenosis lesion in the proximal LAD stent leading into a large diagonal, followed by chronic total occlusion of the stent into the
true LAD, a hazy, 50-60% lesion in the origin of OM1 and a 70-80% lesion in the mid RCA after severe, hairpin turn tortuosity in the proximal RCA. The distal diagonal is collateralized by a large epicardial collateral from the terminal left
posterolateral branch. The mid and distal LAD are supplied by faint collaterals from the distal RCA.
2. Normal filling pressures (LVEDP = 10 mmHg at 86.6 kg) with evidence of diastolic dysfunction (A wave to 22 mmHg).
3. Abnormal vessel loop versus stenosis in the right radial artery, precluding cardiac catheterization from this approach.
TTE 04/08/24:
CONCLUSIONS
Left ventricular ejection fraction is 45-50%. Mid to distal anteroseptal, mid
anteroseptal, apical septal, and apical severe hypokinesis.
Normal right ventricular size and function.
No significant valvular disease.
No significant change since the prior study of 07/27/22.
TTE 07/27/22:
CONCLUSIONS
LV ejection fraction is is approximately 50%, by visual assessment. Mid to
distal anteroseptal, mid anteroseptal, apical septal, and apical severe
hypokinesis.
Normal right ventricular size and function.
No significant valvular disease.
Compared to previous echo on 01/03/2018, there is a slight improvement in LVEF
(previously 45%).
Physical Exam
Vital Signs/Labs
Vital Signs
Temp Pulse Resp BP Pulse Ox
36.4 C 59 16 118/78 99
04/10/24 01:52 04/10/24 05:00 04/10/24 01:52 04/10/24 01:52 04/10/24 01:52
04/08/24 04/09/24 04/10/24
11:59 11:59 11:59
Actual Weight 86.6 kg 86.6 kg
04/09/24 05:52
04/09/24 05:52
PT 14.2 Sec (11.4-14.6) 04/09/24 05:52
INR 1.05 04/09/24 05:52
APTT 104.6 Sec (23.4-35.0) H 04/10/24 01:59
Triglycerides 50 mg/dl (10-149) 04/08/24 06:41
LDL Cholesterol, Calc 40 mg/dl 04/08/24 06:41
VLDL Cholesterol, Calc 10 mg/dl (0-30) 04/08/24 06:41
HDL Cholesterol 41 mg/dl 04/08/24 06:41
LAB Results
04/08/24 04/08/24 04/08/24
04:11 06:41 09:00
Troponin I 0.019 0.027 D Cancelled
04/08/24
13:10
Troponin I 0.038 H* D
Physical Exam
Constitutional: No acute distress and Comfortable
EENT: Anicteric and Moist mucous membranes
Cardiovascular: Rhythm & rate is regular, Pedal edema is absent, JVD pressure is normal, S1S2 is normal and Murmur/rub/gallop absent
Respiratory: Respiratory effort normal, Lungs clear to auscul., Wheeze Absent, Crackles Absent and Rhonchi Absent
GI: Soft, Distention absent, Flat, Non tender and Normal bowel sounds
Neuro/Psych: AO x 3
Other: Cath Site (Right radial access site is C/D/I.)
Data Reviewed
-
Date of Service: April 10, 2024
Medical Decision Making: Reviewed Test Results, Independent Historian Assessment and Test Interpretation
EKG: Tracing Personally Visualized and interpreted and Report Reviewed by me
Echo: Tracing Personally Visualized and interpreted and Report Reviewed by me
X-Ray/CT/US/MRI/NUC/PET: Image Personally Visualized and interpreted and Report Reviewed by me
Medical Tests (PFT, Pathology etc): Image Personally Visualized and interpreted and Report Reviewed by me
Labs: Labs Reviewed by me
Old Records: Reviewed
--- NOTE | 2024-04-10 08:43 | W.PN.UPDATE ---
Update Note
Progress Note Update
I saw and evaluated the patient. I reviewed the resident�s note and agree with findings and plan as documented in the resident�s note.
Denies chest pain, reports indigestion, got Maalox.
Gen: NAD, AAOx3.
Eyes: EOMI, PERRLA, no scleral icterus.
Neck: supple.
CV: remains RRR, +S1/S2, no m/r/g.
Resp: remains CTAB, no rales, wheezes, or rhonchi.
Skin: No rashes.
Neuro: remains CN 2-12 intact, non-focal.
Psych: Normal mood and affect.
Chest pain:
-trops NEG
-CAD s/p prior PCI to the LAD in 2004 and 2006
-cath 04/08/24 with MVD, atretic LAD
-cont heparin gtt/ASA/BB/statin
-plavix on hold (washout)
-CT surg and interventional cardiology discussing plan going forward. Likely CABG next week.
Chronic HFmrEF:
-cont BB/Entresto
Essential HTN:
-cont BB/Entresto
HLD:
-cont statin
FULL/Heparin
[2024-04-10] MEDS: MAALOX 30 ML PO (08:58)
[2024-04-10] MEDS: HEPARIN 25000 UNITS/250 ML IV (09:00)
[2024-04-10] MEDS: ASPIR LOW (ENTERIC COATED) 81 MG PO (09:00)
[2024-04-10] MEDS: TENORMIN 25 MG PO (09:00)
[2024-04-10] MEDS: ENTRESTO 49 MG/51 MG 1 TAB PO ×2 (09:00→19:59)
--- NOTE | 2024-04-10 09:27 | W.PN.HOSP.TC ---
Today's Communication/Plan
-
Await for the plan per CT surgeon and cardiology
Assessment / Plan
Assessment / Plan
Impression
Acute coronary syndrome
Chronic HFmrEF
Essential hypertension
Hyperlipidemia
Plan
Acute coronary syndrome
S/p C yesterday - 90% in-stent restenosis lesion in the proximal LAD stent , 70-80% lesion in the mid RCA
Multivessel disease
During the procedure CT surgery was consulted for optimal revascularization strategy
Continue nitroglycerin, heparin GTT, aspirin, beta-blockers, statin
Hold Plavix for washout
CT surgeon cardiology discussing plan forward
Chronic HFmrEF
Continue beta-blockers and Entresto
Essential hypertension
Continue beta-peter Entresto
Hyperlipidemia
continue statin
Full code
DVT prophylaxis heparin
Anticipated Discharge: > 48 hours
Subjective/Interval History
-
Date of Service: April 10, 2024
No overnight events
Objective Data
-
Labs:
Laboratory Results
04/10/24
01:59
APTT 104.6 H
Vital Signs:
Vital Signs
Temp Pulse Resp BP Pulse Ox
98.3 F 64 18 109/76 98
04/10/24 07:00 04/10/24 09:00 04/10/24 07:00 04/10/24 09:00 04/10/24 07:00
I&O
04/09/24 04/10/24 04/11/24
06:59 06:59 06:59
Intake Total 1236 / 1236 504 / 504
Balance 1236 / 1236 504 / 504
Review of Systems
-
All other systems: Reviewed and negative
Physical Exam
-
General: Comfortable
HEENT: Normocephalic and Atraumatic
Respiratory: Clear to Auscultation
Cardiac: Regular Rhythm and S1/S2
Musculoskeletal: No Edema
Psych: Calm
Data Reviewed
-
Labs: Discussed with Physician
--- NOTE | 2024-04-10 09:45 | PN.CDI ---
CDI
- -
CDI:
Physician Documentation Request
Admit Date: 04/08/24 16:05
Dear Cardiology,
Please review the following and provide your response in the progress notes.
Clinical Indicators:
- 04/10 Cardiology indicates acute coronary syndrome
- 04/09 Cardiology note indicates ischemic cardiomyopathy EF 50%
- quality assurance/r&d lab technician report '40% lesion of the ostial left main, a critical, 90% in-stent restenosis lesion in the proximal LAD stent'
- '50-60% lesion in the origin of OM1 and a 70-80% lesion in the mid RCA'
- Consult for CABG
Laboratory Tests
04/08/24 04/08/24 04/08/24
04:11 06:41 13:10
Troponin I 0.019 0.027 D 0.038 H* D
Please clarify the following regarding the documented elevated troponin:
NSTEMI
Type II WI due to
Non-ischemic myocardial injury
Other (please specify)
Use of terms such as suspected, likely, concern for, or probable (associated with a specific diagnosis that is being evaluated, monitored, or treated as if it exists) are acceptable and can be coded in the inpatient setting, when documented at the
time of discharge.
Thank you,
Mayur Thompson RN
CDI Specialist
Please use your independent medical judgment in providing your response.
--- NOTE | 2024-04-10 10:58 | W.PN.UPDATE ---
Update Note
Progress Note Update
Plan for CABG per CT surgeon and cardiology
Change to atenolol from metoprolol
--- NOTE | 2024-04-10 11:13 | CM ---
Chart reviewed. Patient is independent of ADLS, lives with his in a 2 STH, 1 BENNY, 0 DME. Reviewed preoperative and postoperative instructions and restrictions, along with showering guidelines. Patient is agreeable to a home visit by CT
Transitional RN. Plan is for the patient to return home by CT Transitional RN. CM to follow
--- NOTE | 2024-04-10 12:19 | W.PN.UPDATE ---
Update Note
Progress Note Update
STS risk calc.
Simulated Patient Summary
Procedure Type:�Isolated CABG
Perioperative Outcome Estimate %
Operative Mortality 0.407%
Morbidity & Mortality 2.78%
Stroke 0.593%
Renal Failure 0.306%
Reoperation 2.24%
Prolonged Ventilation 1.2%
Deep Sternal Wound Infection 0.066%
Long Hospital Stay (>14 days) 1.05%
Short Hospital Stay (<6 days)* 72.8%
*higher values reflect a better outcome
Clinical Summary
Planned Surgery: Isolated CABG, Urgent, First cardiovascular surgery
Demographics: 64 year old, White, male, 86kg, 185cm, BMI: 25.1 kg/m�
Insurance/Payor: Commercial
Lab Values: Creatinine: 1 mg/dL, Hematocrit: 45%, WBC Count: 6 10�/�L, Platelet Count: 540791 cells/�L
Substance Abuse: Never smoker, Alcohol use: 2-7 drinks/week
Risk Factors / Comorbidities: Hypertension, Family Hx of CAD
Cardiac Status: Ejection Fraction = 45%
Coronary Artery Disease: 3 vessels diseased, Proximal LAD Stenosis >=70%, Stable Angina
Valve Disease: Trivial/Trace MR, Mild TR
[2024-04-10] MEDS: PEPCID PO (15:09)
--- NOTE | 2024-04-10 18:44 | PTCARENOTE ---
pt continues to be sr on the monitor, vss. pt offers no complaints throughout the day. pt ambulating through the halls and pt tolerated well. pt educated on plan of care and pt verbalized understanding. heparin gtt running per protocol, see
documentation. call hawley within reach.
[2024-04-10] MEDS: LIPITOR 40 MG PO (19:59)
[2024-04-10] MEDS: PEPCID 40 MG PO (21:25)
--- NOTE | 2024-04-11 01:45 | PTCARENOTE ---
received patient at the change of shift. AAOx3. denies any cp/sob. independent in the room. SB/SR on tele 50s-60s. bp stable. heparin gtt infusing per protocol. 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 reviewed plan of care with patient and verbalized understanding.
patient states taking his Pepcid at night when at home. 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 ordered change and night dose given, see mar.
[2024-04-11 04:45] VITALS: BP 109/74
[2024-04-11 05:28] LABS: APTT 131.5 Sec (23.4-35.0)
[2024-04-11] MEDS: HEPARIN 25000 UNITS/250 ML IV (07:00)
[2024-04-11 07:34] VITALS: BP 105/90
[2024-04-11] MEDS: ASPIR LOW (ENTERIC COATED) 81 MG PO (08:35)
[2024-04-11] MEDS: TOPROL XL 25 MG PO (08:35)
[2024-04-11] MEDS: ENTRESTO 49 MG/51 MG 1 TAB PO ×2 (08:35→19:58)
--- NOTE | 2024-04-11 09:33 | W.PN.HOSP.TC ---
Today's Communication/Plan
-
Plan for CABG next week
Assessment / Plan
Assessment / Plan
Impression
Acute coronary syndrome
Chronic HFmrEF
Essential hypertension
Hyperlipidemia
Plan
Acute coronary syndrome
S/p LHC yesterday - 90% in-stent restenosis lesion in the proximal LAD stent , 70-80% lesion in the mid RCA
Multivessel disease
During the procedure CT surgery was consulted for optimal revascularization strategy
Continue nitroglycerin, heparin GTT, aspirin, beta-blockers, statin
Hold Plavix for washout
PLAN for CABG next week
Chronic HFmrEF
Continue beta-blockers and Entresto
Essential hypertension
Continue beta-peter Entresto
Hyperlipidemia
continue statin
Full code
DVT prophylaxis heparin
Anticipated Discharge: > 48 hours
Subjective/Interval History
-
Date of Service: April 11, 2024
no new overnight events
Objective Data
-
Labs:
Laboratory Results
04/11/24 04/11/24
04:44 13:00
APTT 131.5 H Pending
Vital Signs:
Vital Signs
Temp Pulse Resp BP Pulse Ox
97.5 F 64 18 105/90 95
04/11/24 07:35 04/11/24 08:35 04/11/24 07:35 04/11/24 08:35 04/11/24 07:35
I&O
04/10/24 04/11/24 04/12/24
06:59 06:59 06:59
Intake Total 504 / 504 450 / 450
Balance 504 / 504 450 / 450
Review of Systems
-
All other systems: Reviewed and negative
Physical Exam
-
General: Comfortable
HEENT: Normocephalic and Atraumatic
Respiratory: Clear to Auscultation
Cardiac: Regular Rhythm and S1/S2
Musculoskeletal: No Edema
--- NOTE | 2024-04-11 09:48 | W.PN.CD ---
Today's Communication / Plan
-
IV heparin
For CABG next week
Impression / Plan
-
Bakround: 64-year-old gentleman with a past medical history of CAD status post PCI in 2004 and 2006 of the LAD, mild the reduced ejection fraction with an EF of 50%, hypertension and hyperlipidemia presents for evaluation of abdominal and chest
pain in the setting of a high risk stress test on 04/07/2024, found to have multivessel CAD.
CAD withACS, cath with MVD, atretic LAD with severe pLAD ISR, highly tortuous pRCA.
- IV heparin
- CABG next week
Mild ischemic cardiomyopathy, meds adjusted
Abdominal Pain, improved.
-Management per internal medicine.
Subjective/Interval History: No CP
DATA:
Cath:04/08/24
HEMODYNAMIC DATA
Weight (kg): 86.6
AO (s/d/x, mmHg): 133/83/105
LV (s/x mmHg): 135/10 (A wave to 22)
CONCLUSIONS
1. Right dominant circulation with a nonocclusive, 40% lesion of the ostial left main, a critical, 90% in-stent restenosis lesion in the proximal LAD stent leading into a large diagonal, followed by chronic total occlusion of the stent into the
true LAD, a hazy, 50-60% lesion in the origin of OM1 and a 70-80% lesion in the mid RCA after severe, hairpin turn tortuosity in the proximal RCA. The distal diagonal is collateralized by a large epicardial collateral from the terminal left
posterolateral branch. The mid and distal LAD are supplied by faint collaterals from the distal RCA.
2. Normal filling pressures (LVEDP = 10 mmHg at 86.6 kg) with evidence of diastolic dysfunction (A wave to 22 mmHg).
3. Abnormal vessel loop versus stenosis in the right radial artery, precluding cardiac catheterization from this approach.
TTE 04/08/24:
CONCLUSIONS
Left ventricular ejection fraction is 45-50%. Mid to distal anteroseptal, mid
anteroseptal, apical septal, and apical severe hypokinesis.
Normal right ventricular size and function.
No significant valvular disease.
No significant change since the prior study of 07/27/22.
TTE 07/27/22:
CONCLUSIONS
LV ejection fraction is is approximately 50%, by visual assessment. Mid to
distal anteroseptal, mid anteroseptal, apical septal, and apical severe
hypokinesis.
Normal right ventricular size and function.
No significant valvular disease.
Compared to previous echo on 01/03/2018, there is a slight improvement in LVEF
(previously 45%).
Physical Exam
Vital Signs/Labs
Vital Signs
Temp Pulse Resp BP Pulse Ox
97.5 F 64 18 105/90 95
04/11/24 07:35 04/11/24 08:35 04/11/24 07:35 04/11/24 08:35 04/11/24 07:35
04/09/24 05:52
04/09/24 05:52
PT 14.2 Sec (11.4-14.6) 04/09/24 05:52
INR 1.05 04/09/24 05:52
APTT 131.5 Sec (23.4-35.0) H 04/11/24 04:44
Triglycerides 50 mg/dl (10-149) 04/08/24 06:41
LDL Cholesterol, Calc 40 mg/dl 04/08/24 06:41
VLDL Cholesterol, Calc 10 mg/dl (0-30) 04/08/24 06:41
HDL Cholesterol 41 mg/dl 04/08/24 06:41
LAB Results
04/08/24 04/08/24
09:00 13:10
Troponin I Cancelled 0.038 H* D
Physical Exam
Constitutional: No acute distress
EENT: Anicteric
Cardiovascular: Rhythm & rate is regular
Respiratory: Respiratory effort normal and Lungs clear to auscul.
GI: Soft and Distention absent
Neuro/Psych: Alert
Data Reviewed
-
Date of Service: April 11, 2024
[2024-04-11 11:55] VITALS: BP 123/93
--- NOTE | 2024-04-11 12:04 | W.PN.UPDATE ---
Update Note
Progress Note Update
I saw and evaluated the patient. I reviewed the resident�s note and agree with findings and plan as documented in the resident�s note.
No new complaints.
Gen: NAD, AAOx3.
Eyes: EOMI, PERRLA, no scleral icterus.
Neck: supple.
CV: Continues to remain RRR, +S1/S2, no m/r/g.
Resp: Continues to remain CTAB, no rales, wheezes, or rhonchi.
Skin: No rashes.
Neuro: Continues to remain CN 2-12 intact, non-focal.
Psych: Normal mood and affect.
Chest pain (ACS):
-trops NEG
-CAD s/p prior PCI to the LAD in 2004 and 2006
-cath 04/08/24 with MVD, atretic LAD with severe pLAD ISR, highly tortuous pRCA
-cont heparin gtt/ASA/BB/statin
-plavix on hold (washout)
-for CABG next week
Other problems:
Chronic HFmrEF: cont BB/Entresto
Essential HTN: cont BB/Entresto
HLD: cont statin
FULL/Heparin
[2024-04-11 13:37] LABS: APTT 79.2 Sec (23.4-35.0)
[2024-04-11 16:23] VITALS: BP 105/79
[2024-04-11] MEDS: LIPITOR 40 MG PO (17:54)
--- NOTE | 2024-04-11 18:09 | PTCARENOTE ---
pt continues to be sr on the monitor, hr in the 60s, vss. pt ambulating through the halls and tolerating well. pt educated on plan of care and pt tolerated well. radial site is cdi. heparin gtt running per protocol, see documentation. call hawley
within reach.
[2024-04-11 19:31] VITALS: BP 103/63
[2024-04-11] MEDS: PEPCID 40 MG PO (19:58)
[2024-04-11 20:23] LABS: APTT 69.5 Sec (23.4-35.0)
[2024-04-11 22:08] VITALS: BP 111/81
--- NOTE | 2024-04-11 22:34 | PTCARENOTE ---
received patient at the change of shift. AAOx3. independent in the room. denies any cp/sob. SB 50s on tele. bp stable. heparin gtt infusing per protocol. answered all questions regarding OR prep. educated patient to inform RN with any changes. calls
appropriately.
[2024-04-12 02:29] VITALS: BP 113/85
[2024-04-12 02:48] LABS: Hematocrit 41.9 % (39.0-52.0); Hemoglobin 15.3 g/dL (13.0-18.0); Mean Corp Hgb Conc. 36.5 g/dL (33.0-37.0); Mean Corpuscular Hgb 30.7 pg (27.0-31.0); Mean Platelet Volume 9.9 fL (7.4-10.4); Platelet Count 169 10^3/uL (130-400); Red Blood Cell Count 4.99 10^6/uL (4.70-6.10); Red Cell Dist. Width 12.2 % (11.5-14.5); White Blood Cell Count 5.1 10^3/uL (4.8-10.8)
[2024-04-12 02:59] LABS: APTT 92.6 Sec (23.4-35.0)
[2024-04-12 03:46] LABS: ALT (SGPT) 42 U/L (0-50); AST (SGOT) 37 U/L (17-59); Alkaline Phosphatase 79 U/L (38-126); Blood Urea Nitrogen 15 mg/dl (9-20); Calcium 9.2 mg/dl (8.4-10.2); Carbon Dioxide 28 mmol/L (22-30); Chloride 104 mmol/L (98-107); Estimated Creatinine Clearance 92 ml/min; Glucose 106 mg/dl (70-99); Sodium 140 mmol/L (135-145); Total Bilirubin 0.9 mg/dl (0.2-1.3); Total Protein 6.3 g/dl (6.3-8.2); eGFR > 60.00
[2024-04-12 07:09] VITALS: BP 111/78
[2024-04-12] MEDS: HEPARIN 25000 UNITS/250 ML IV (07:36)
--- NOTE | 2024-04-12 08:21 | W.PN.HOSP.TC ---
Today's Communication/Plan
-
CABG next week
IV heparin
Monitor PTT
Assessment / Plan
Assessment / Plan
Impression
Acute coronary syndrome
Chronic HFmrEF
Essential hypertension
Hyperlipidemia
Plan
Acute coronary syndrome
S/p LHC yesterday - 90% in-stent restenosis lesion in the proximal LAD stent , 70-80% lesion in the mid RCA
Multivessel disease
During the procedure CT surgery was consulted for optimal revascularization strategy
Continue nitroglycerin, heparin GTT, aspirin, beta-blockers, statin
Hold Plavix for washout
IV heparin, PTT 92.6
PLAN for CABG next week
Monitor PTT
Chronic HFmrEF
Continue beta-blockers and Entresto
Essential hypertension
Continue beta-peter Entresto
Hyperlipidemia
continue statin
Full code/ heparin
Anticipated Discharge: > 48 hours
Subjective/Interval History
-
Date of Service: April 12, 2024
No overnight events
Objective Data
-
Labs:
Laboratory Results
04/11/24 04/12/24
20:00 02:30
WBC 5.1
Hgb 15.3
Hct 41.9
Plt Count 169
APTT 69.5 H 92.6 H
Sodium 140
Potassium 4.0
Chloride 104
Carbon Dioxide 28
BUN 15
Creatinine 0.9
Glucose 106 H
Calcium 9.2
Total Bilirubin 0.9 D
AST 37
ALT 42
Alkaline Phosphatase 79
Vital Signs:
Vital Signs
Temp Pulse Resp BP Pulse Ox
97.6 F 61 20 111/78 97
04/12/24 07:07 04/12/24 07:09 04/12/24 07:07 04/12/24 07:09 04/12/24 07:09
I&O
04/11/24 04/12/24 04/13/24
06:59 06:59 06:59
Intake Total 450 / 450 1080 / 1080
Balance 450 / 450 1080 / 1080
Review of Systems
-
All other systems: Reviewed and negative
Physical Exam
-
General: Comfortable
HEENT: Normocephalic and Atraumatic
Respiratory: Clear to Auscultation
Cardiac: Regular Rhythm and S1/S2
Musculoskeletal: No Edema
Neuro: AO x 3
Psych: Calm
Data Reviewed
-
Labs: Labs Reviewed by me and Discussed with Physician
[2024-04-12] MEDS: ASPIR LOW (ENTERIC COATED) 81 MG PO (08:46)
[2024-04-12] MEDS: ENTRESTO 49 MG/51 MG 1 TAB PO ×2 (08:46→19:36)
[2024-04-12] MEDS: TOPROL XL 25 MG PO (08:47)
--- NOTE | 2024-04-12 09:03 | W.PN.UPDATE ---
Update Note
Progress Note Update
I saw and evaluated the patient. I reviewed the resident�s note and agree with findings and plan as documented in the resident�s note.
No new complaints.
Gen: remains NAD, AAOx3.
Eyes: EOMI, PERRLA, no scleral icterus.
Neck: supple.
CV: RRR, +S1/S2, no m/r/g.
Resp: CTAB, no rales, wheezes, or rhonchi.
Skin: No rashes.
Neuro: CN 2-12 intact, non-focal.
Psych: remains Normal mood and affect.
Chest pain (ACS):
-trops NEG
-CAD s/p prior PCI to the LAD in 2004 and 2006
-cath 04/08/24 with MVD, atretic LAD with severe pLAD ISR, highly tortuous pRCA
-cont heparin gtt/ASA/BB/statin
-plavix on hold (washout)
-for CABG 04/14/24
Other problems:
Chronic HFmrEF: cont BB/Entresto
Essential HTN: cont BB/Entresto
HLD: cont statin
FULL/Heparin
[2024-04-12 09:39] LABS: APTT 91.4 Sec (23.4-35.0)
--- NOTE | 2024-04-12 10:42 | W.PN.CD ---
Addendum entered and electronically signed by Lucio Srivastava MD 04/13/24 07:56:
Surgery planned for tomorrow 04/14. Entresto held.
Original Note:
Today's Communication / Plan
-
IV heparin
For CABG next week
Impression / Plan
-
Bakround: 64-year-old gentleman with a past medical history of CAD status post PCI in 2004 and 2006 of the LAD, mild the reduced ejection fraction with an EF of 50%, hypertension and hyperlipidemia presents for evaluation of abdominal and chest
pain in the setting of a high risk stress test on 04/07/2024, found to have multivessel CAD.
CAD with ACS, cath with MVD, atretic LAD with severe pLAD ISR, highly tortuous pRCA.
- IV heparin
- CABG in next several days
Mild ischemic cardiomyopathy, meds adjusted
Abdominal Pain, improved.
-Management per internal medicine.
Subjective/Interval History: No CP
DATA:
Cath:04/08/24
HEMODYNAMIC DATA
Weight (kg): 86.6
AO (s/d/x, mmHg): 133/83/105
LV (s/x mmHg): 135/10 (A wave to 22)
CONCLUSIONS
1. Right dominant circulation with a nonocclusive, 40% lesion of the ostial left main, a critical, 90% in-stent restenosis lesion in the proximal LAD stent leading into a large diagonal, followed by chronic total occlusion of the stent into the
true LAD, a hazy, 50-60% lesion in the origin of OM1 and a 70-80% lesion in the mid RCA after severe, hairpin turn tortuosity in the proximal RCA. The distal diagonal is collateralized by a large epicardial collateral from the terminal left
posterolateral branch. The mid and distal LAD are supplied by faint collaterals from the distal RCA.
2. Normal filling pressures (LVEDP = 10 mmHg at 86.6 kg) with evidence of diastolic dysfunction (A wave to 22 mmHg).
3. Abnormal vessel loop versus stenosis in the right radial artery, precluding cardiac catheterization from this approach.
TTE 04/08/24:
CONCLUSIONS
Left ventricular ejection fraction is 45-50%. Mid to distal anteroseptal, mid
anteroseptal, apical septal, and apical severe hypokinesis.
Normal right ventricular size and function.
No significant valvular disease.
No significant change since the prior study of 07/27/22.
TTE 07/27/22:
CONCLUSIONS
LV ejection fraction is is approximately 50%, by visual assessment. Mid to
distal anteroseptal, mid anteroseptal, apical septal, and apical severe
hypokinesis.
Normal right ventricular size and function.
No significant valvular disease.
Compared to previous echo on 01/03/2018, there is a slight improvement in LVEF
(previously 45%).
Physical Exam
Vital Signs/Labs
Vital Signs
Temp Pulse Resp BP Pulse Ox
97.6 F 61 20 111/48 97
04/12/24 07:07 04/12/24 07:09 04/12/24 07:07 04/12/24 08:46 04/12/24 08:40
04/12/24 02:30
04/12/24 02:30
PT 14.2 Sec (11.4-14.6) 04/09/24 05:52
INR 1.05 04/09/24 05:52
APTT 91.4 Sec (23.4-35.0) H 04/12/24 09:19
Triglycerides 50 mg/dl (10-149) 04/08/24 06:41
LDL Cholesterol, Calc 40 mg/dl 04/08/24 06:41
VLDL Cholesterol, Calc 10 mg/dl (0-30) 04/08/24 06:41
HDL Cholesterol 41 mg/dl 04/08/24 06:41
Physical Exam
Constitutional: No acute distress
EENT: Anicteric
Cardiovascular: Rhythm & rate is regular and Pedal edema is absent
Respiratory: Respiratory effort normal and Lungs clear to auscul.
GI: Soft and Distention absent
Neuro/Psych: AO x 3
Data Reviewed
-
Date of Service: April 12, 2024
[2024-04-12 11:22] VITALS: BP 117/74
[2024-04-12 15:19] VITALS: BP 110/76
[2024-04-12] MEDS: LIPITOR 40 MG PO (18:21)
--- NOTE | 2024-04-12 18:28 | PTCARENOTE ---
Pt denies any discomfort, OOB in chair all day. Heparin infusion in therapeutic range. Telemetry shows sinus rhythm.
[2024-04-12 19:35] VITALS: BP 128/84
[2024-04-12] MEDS: PEPCID 40 MG PO (19:36)
--- NOTE | 2024-04-12 21:00 | PTCARENOTE ---
pt received at change of shift. pt seen and assessed in room. pt aox3, tele reading nsr/sinus joselyn. no complaints of pain at this time. heparin gtt running at 1100units/hr next PTT with AM labs. This RN explained plan of care to patient, pt
verbalizes understanding. Call ahwley within reach. Continuing to monitor at this time.
[2024-04-12 22:28] VITALS: BP 112/77
[2024-04-13 03:31] VITALS: BP 107/75
[2024-04-13 03:49] VITALS: BMI 25.0
[2024-04-13] MEDS: HEPARIN 25000 UNITS/250 ML IV (04:23)
[2024-04-13 04:42] LABS: % Basophils 0.7 % (0-2); % Eosinophils 7.2 % (0-6); % Immature Granulocytes 0.2 % (0-0.5); % Lymphocytes 30.3 % (20.5-51.1); % Monocytes 8.7 % (1.7-9.3); % Neutrophils 52.9 % (42.2-75.2); Absolute Eosinophils 0.3 10^3/uL (0-0.7); Absolute Lymphocytes 1.3 10^3/uL (1.2-3.4); Absolute Monocytes 0.4 10^3/uL (0.1-0.6); Absolute Neutrophils 2.2 10^3/uL (1.4-6.5); Hematocrit 42.8 % (39.0-52.0); Hemoglobin 15.1 g/dL (13.0-18.0); Mean Corp Hgb Conc. 35.3 g/dL (33.0-37.0); Mean Corpuscular Hgb 30.6 pg (27.0-31.0); Mean Corpuscular Volume 86.6 fL (80.0-94.0); Mean Platelet Volume 10.1 fL (7.4-10.4); Nucleated Red Blood Cells % 0 % (-); Platelet Count 148 10^3/uL (130-400); Red Blood Cell Count 4.94 10^6/uL (4.70-6.10); Red Cell Dist. Width 12.3 % (11.5-14.5); White Blood Cell Count 4.2 10^3/uL (4.8-10.8)
[2024-04-13 04:48] LABS: APTT 62.4 Sec (23.4-35.0)
[2024-04-13 05:07] LABS: Blood Urea Nitrogen 11 mg/dl (9-20); Calcium 9.2 mg/dl (8.4-10.2); Carbon Dioxide 25 mmol/L (22-30); Chloride 105 mmol/L (98-107); Estimated Creatinine Clearance 104 ml/min; Glucose 93 mg/dl (70-99); Sodium 138 mmol/L (135-145); eGFR > 60.00
--- NOTE | 2024-04-13 07:47 | W.PN.CD ---
Today's Communication / Plan
-
surgical planning
hold plavix (last dose 04/08)
stop entresto once surgical date determined
Impression / Plan
-
Bakround: 64-year-old gentleman with a past medical history of CAD status post PCI in 2004 and 2006 of the LAD, mild the reduced ejection fraction with an EF of 50%, hypertension and hyperlipidemia presents for evaluation of abdominal and chest
pain in the setting of a high risk stress test on 04/07/2024, found to have multivessel CAD.
CAD with ACS, cath with MVD, atretic LAD with severe pLAD ISR, highly tortuous pRCA.
- IV heparin
- cont. asa/atorva/metop
- Plavix washout, last dose 04/08, cont. to hold
- will need to hold all DULCE/ARB/ARNI 48 hours before surgery once date determined.
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
- CABG in next several days
Mild ischemic cardiomyopathy, meds adjusted
Abdominal Pain, improved.
-Management per internal medicine.
Subjective/Interval History: No CP
DATA:
Cath:04/08/24
HEMODYNAMIC DATA
Weight (kg): 86.6
AO (s/d/x, mmHg): 133/83/105
LV (s/x mmHg): 135/10 (A wave to 22)
CONCLUSIONS
1. Right dominant circulation with a nonocclusive, 40% lesion of the ostial left main, a critical, 90% in-stent restenosis lesion in the proximal LAD stent leading into a large diagonal, followed by chronic total occlusion of the stent into the
true LAD, a hazy, 50-60% lesion in the origin of OM1 and a 70-80% lesion in the mid RCA after severe, hairpin turn tortuosity in the proximal RCA. The distal diagonal is collateralized by a large epicardial collateral from the terminal left
posterolateral branch. The mid and distal LAD are supplied by faint collaterals from the distal RCA.
2. Normal filling pressures (LVEDP = 10 mmHg at 86.6 kg) with evidence of diastolic dysfunction (A wave to 22 mmHg).
3. Abnormal vessel loop versus stenosis in the right radial artery, precluding cardiac catheterization from this approach.
TTE 04/08/24:
CONCLUSIONS
Left ventricular ejection fraction is 45-50%. Mid to distal anteroseptal, mid
anteroseptal, apical septal, and apical severe hypokinesis.
Normal right ventricular size and function.
No significant valvular disease.
No significant change since the prior study of 07/27/22.
TTE 07/27/22:
CONCLUSIONS
LV ejection fraction is is approximately 50%, by visual assessment. Mid to
distal anteroseptal, mid anteroseptal, apical septal, and apical severe
hypokinesis.
Normal right ventricular size and function.
No significant valvular disease.
Compared to previous echo on 01/03/2018, there is a slight improvement in LVEF
(previously 45%).
Physical Exam
Vital Signs/Labs
Vital Signs
Temp Pulse Resp BP Pulse Ox
36.3 C 60 18 112/77 98
04/13/24 03:49 04/12/24 23:28 04/13/24 03:49 04/12/24 22:28 04/13/24 03:49
04/12/24 04/13/24 04/14/24
06:59 06:59 06:59
Actual Weight 86 kg
04/13/24 04:22
04/13/24 04:22
PT 14.2 Sec (11.4-14.6) 04/09/24 05:52
INR 1.05 04/09/24 05:52
APTT 62.4 Sec (23.4-35.0) H 04/13/24 04:22
Triglycerides 50 mg/dl (10-149) 04/08/24 06:41
LDL Cholesterol, Calc 40 mg/dl 04/08/24 06:41
VLDL Cholesterol, Calc 10 mg/dl (0-30) 04/08/24 06:41
HDL Cholesterol 41 mg/dl 04/08/24 06:41
Physical Exam
Constitutional: No acute distress
Cardiovascular: Rhythm & rate is regular
Respiratory: Respiratory effort normal
Neuro/Psych: AO x 3
Data Reviewed
-
Date of Service: April 13, 2024
Medical Decision Making: Reviewed Test Results
EKG: Tracing Personally Visualized and interpreted
Echo: Tracing Personally Visualized and interpreted
Labs: Labs Reviewed by me
[2024-04-13 08:05] VITALS: BP 118/86
[2024-04-13] MEDS: ASPIR LOW (ENTERIC COATED) 81 MG PO (08:10)
[2024-04-13] MEDS: TOPROL XL 25 MG PO (08:10)
--- NOTE | 2024-04-13 11:16 | CM ---
Chart reviewed. Patient is going for a CABG 04/14/2024. Patient is independent of ADLS, lives with his in a [address], 1 [address]ENNY, 0 DME. Plan is for the patient to return home with CT Transitional RN. CM to follow
[2024-04-13 11:18] VITALS: BP 125/88
[2024-04-13 12:22] LABS: APTT 114.8 Sec (23.4-35.0)
--- NOTE | 2024-04-13 13:49 | W.PN.HOSP.TC ---
Addendum entered and electronically signed by Bonifacio Grigsby MD 04/13/24 19:24:
Attending Addendum-
I saw and evaluated the patient. I reviewed the resident�s note and agree with findings and plan as documented in the resident�s note. Sub: No complaints Deniea CP SOB palpitations. Full 12 point ROS reviewed and negative except as documented Exam:
Vitals reviewed in chart GEN-NAD heart RRR lungs clear abd soft LE no edema
Plan
ACS with MVCAD
- s/p LHC 04/08 - MVD, atretic LAD with severe pLAD ISR, highly tortuous pRCA.
- plavix on hold > 5 days
- for CABG x 4 with LAVONNE clip in am 04/14 Dr. Fuentes
- cont metoprolol atorvastatin and asa
- hold entresto
Chronic HFmrEF
- echo 04/08- EF 45-50%
- not in AE
- GDMT
- cont metoprolol
- hold Entresto for surgery
Essential hypertension
- cont metoprolol hold entresto
- monitor closely
- GDMT
Hyperlipidemia
continue atorvastatin
Code - Full
Time spent coordinating care, review of plan of care with resident, personally reviewed records in EMR, med rec, consults, notes, labs, radiology, d/w nursing � 59 mins
Original Note:
Today's Communication/Plan
-
Plan for CABG tomorrow
N.p.o. after midnight
Hold Entresto and Plavix
Assessment / Plan
Assessment / Plan
[id number]-old male with past medical history of CAD status post PCI HFrEF, hypertension and hyperlipidemia presenting with 90% in-stent restenosis of the proximal LAD and mid RCA. Plan for CABG.
Plan
Acute coronary syndrome
Left heart cath showed a 90% in-stent restenosis lesion in the proximal LAD and 70 to 80% lesion in the mid RCA
Continue to hold Plavix for washout, last dose 04/08
Continue nitroglycerin, aspirin, beta-peter, statin
Hold Entresto
Monitor PTT
Continue IV heparin
N.p.o. after midnight
CABG tomorrow
Chronic HFmrEF
Continue beta-blockers
Hold Entresto
Essential hypertension
Continue beta-peter
Hold Entresto
Hyperlipidemia
continue statin
Full code/ heparin
Anticipated Discharge: > 48 hours
Subjective/Interval History
-
Date of Service: April 13, 2024
64-year-old male with past medical history of CAD, status post PCI 2004 and 2006 of the LAD, HFrEF with ejection fraction of 50%, hypertension and hyperlipidemia who presented to [facility] with abdominal and chest pain. Hyper stress test
on 04/07 showed multivessel CAD. Left heart cath showed 90% in-stent restenosis lesion proximal to the LAD stent and 70 to 80% lesion in the mid RCA. Patient scheduled for CABG tomorrow.
Objective Data
-
Labs:
Laboratory Results
04/13/24 04/13/24 04/13/24
04:22 11:56 18:35
WBC 4.2 L
Hgb 15.1
Hct 42.8
Plt Count 148
APTT 62.4 H 114.8 H Pending
Sodium 138
Potassium 4.0
Chloride 105
Carbon Dioxide 25
BUN 11
Creatinine 0.8
Glucose 93
Calcium 9.2
Vital Signs:
Vital Signs
Temp Pulse Resp BP Pulse Ox
97.6 F 58 18 125/88 99
04/13/24 11:18 04/13/24 11:18 04/13/24 11:18 04/13/24 11:18 04/13/24 11:18
I&O
04/12/24 04/13/24 04/14/24
06:59 06:59 06:59
Intake Total 1080 / 1080 243 / 243
Balance 1080 / 1080 243 / 243
Review of Systems
-
History Source: Patient
Constitutional: Reports No Symptoms
EENT: Reports No Symptoms Reported
Respiratory: Reports No Symptoms
Cardiac: Reports No Symptoms
Abdomen/GI: Reports No Symptoms
Genitourinary: Reports No Symptoms
Musculoskeletal: Reports No Symptoms
Skin: Reports No Symptoms
Neuro: Reports No Symptoms
Physical Exam
-
General: Well Developed, Well Nourished, No Apparent Distress, Comfortable and Conversant
HEENT: Normocephalic and Atraumatic
Respiratory: Clear to Auscultation
Cardiac: Regular Rhythm and S1/S2
GI: Soft, Nontender and Nondistended
Musculoskeletal: No Clubbing, No Cyanosis and No Edema
Skin: Warm and Dry
Neuro: AO x 3
Psych: Calm
Data Reviewed
-
Diagnostic Radiology: Report Reviewed by me
CT Scan: Report Reviewed by me
Labs: Labs Reviewed by me and Discussed with Physician
Old Records: Reviewed
--- NOTE | 2024-04-13 15:29 | W.PN.UPDATE ---
Update Note
Progress Note Update
I met with Mr. Beverly at the bedside. We discussed his pathology and cath. We reviewed the conduct of surgery as well as the risks and benefits. I reviewed his STS score and answered his questions to the best of my ability. Plan for CABG x 4 + LAVONNE
Clip tomorrow with me. Given his age, and the appearance of the diagonal vessel, we will consider multi arterial grafting. Consent was obtained.
[2024-04-13 15:47] VITALS: BP 118/77
--- NOTE | 2024-04-13 16:34 | PTCARENOTE ---
BREEZYE restriction for radial harvest, per MD order.
[2024-04-13] MEDS: LIPITOR 40 MG PO (18:29)
[2024-04-13 18:32] VITALS: BP 115/82
[2024-04-13 19:37] LABS: APTT 100.6 Sec (23.4-35.0)
[2024-04-13] MEDS: PEPCID 40 MG PO (21:20)
--- NOTE | 2024-04-13 22:00 | PTCARENOTE ---
Pt received at change of shift. NSR on tele with HR 60s-70s. No complaints of pain or SOB at this time. Heparin gtt currently infusing at 1200units/hr. Pt clipped and showered with CHG to prep for OR in AM. Plan of care discussed and pt
verbalizes understanding of being NPO at midnight. Can make needs known. Call hawley within reach.
[2024-04-13 22:01] VITALS: BP 138/92
[2024-04-14] VITALS (18 sets, daily range): BP systolic 95–147; BP diastolic 61–98; BMI 25.0
[2024-04-14] MEDS: NITROSTAT (SUBLINGUAL) 0.4 MG SL (00:11)
[2024-04-14] MEDS: HEPARIN 25000 UNITS/250 ML IV (00:19)
--- NOTE | 2024-04-14 01:00 | PTCARENOTE ---
Pt rang call hawley ~0005 with complaints of 3/10 CP which was in the center of his chest and felt heavy. EKG obtained, BP 147/98 and 1 dose of SL nitro administered per orders. PRANEETH Jones notified. Pt reported CP had resolved after 1 dose
of Nitro. Instructed pt to notify RN if CP returns and pt verbalizes understanding. Plan of care ongoing.
[2024-04-14 03:13] LABS: % Basophils 0.5 % (0-2); % Eosinophils 3.3 % (0-6); % Immature Granulocytes 0.2 % (0-0.5); % Lymphocytes 20.1 % (20.5-51.1); % Monocytes 7.5 % (1.7-9.3); % Neutrophils 68.4 % (42.2-75.2); Absolute Eosinophils 0.2 10^3/uL (0-0.7); Absolute Lymphocytes 1.2 10^3/uL (1.2-3.4); Absolute Monocytes 0.4 10^3/uL (0.1-0.6); Absolute Neutrophils 3.9 10^3/uL (1.4-6.5); Hemoglobin 15.3 g/dL (13.0-18.0); Mean Corp Hgb Conc. 37.3 g/dL (33.0-37.0); Mean Corpuscular Hgb 30.8 pg (27.0-31.0); Mean Corpuscular Volume 82.5 fL (80.0-94.0); Mean Platelet Volume 9.9 fL (7.4-10.4); Nucleated Red Blood Cells % 0 % (-); Platelet Count 163 10^3/uL (130-400); Red Blood Cell Count 4.97 10^6/uL (4.70-6.10); Red Cell Dist. Width 12.2 % (11.5-14.5); White Blood Cell Count 5.7 10^3/uL (4.8-10.8)
[2024-04-14 03:24] LABS: ALT (SGPT) 72 U/L (0-50); AST (SGOT) 50 U/L (17-59); Albumin 4.1 g/dl (3.5-5.0); Alkaline Phosphatase 91 U/L (38-126); Blood Urea Nitrogen 11 mg/dl (9-20); Calcium 9.6 mg/dl (8.4-10.2); Carbon Dioxide 25 mmol/L (22-30); Chloride 103 mmol/L (98-107); Estimated Creatinine Clearance 92 ml/min; Glucose 107 mg/dl (70-99); Potassium 3.7 mmol/L (3.5-5.1); Sodium 137 mmol/L (135-145); Total Bilirubin 1.2 mg/dl (0.2-1.3); Total Protein 6.4 g/dl (6.3-8.2); eGFR > 60.00
[2024-04-14] MEDS: LOPRESSOR 25 MG PO (06:13)
[2024-04-14] MEDS: MAGNESIUM OXIDE 500 MG PO (06:13)
[2024-04-14] MEDS: PROTONIX 40 MG PO (06:13)
[2024-04-14] MEDS: BACTROBAN 2% OINTMENT 1 APPLIC NASAL ×2 (06:14→19:10)
--- NOTE | 2024-04-14 06:32 | W.CVOR.SURPR ---
CVOR Surgeon Immed Pre Op
-
I have examined this patient prior to performance of the scheduled procedure.
The patient's condition is unchanged from the time of the dictated/written History and
Physical and the patient is able to undergo the scheduled procedure.
CABG + LAVONNE Clip
[2024-04-14 07:27] LABS: ACT+ - POC 112 Seconds (82-134)
[2024-04-14 07:28] LABS: B.E. - POC 0.9 mmol/L; Glucose - POC 117 mg/dl (70-99); HCO3 - POC 25 mmol/L (21-28); Hematocrit - POC 35 % PCV (42-52); Hemodilution- POC No; Hemoglobin Calculated - POC 11.8; Ionized Calcium - POC 1.26 mmol/L (1.15-1.33); Lactate - POC 1.21 mmol/L (0.36-0.75); O2 Saturation %Calculated-POC 99.6 % (94-98); PCO2 - POC 37 mmHg (35-48); PO2 - POC 179 mmHg (83-108); POC Comment PRE; Potassium - POC 3.9 mmol/L (3.5-5.1); Sodium - POC 139 mmol/L (136-145); Specimen Type - POC Arterial; pH - POC 7.44 (7.35-7.45)
[2024-04-14 07:30] LABS: Urine Albumin Trace (Neg - Trace); Urine Bilirubin 1+ (Negative); Urine Character Slightly Cloudy (Clear); Urine Color Amber; Urine Glucose Negative (Negative); Urine Ketone Negative (Negative); Urine Leukocyte Trace (Negative); Urine Nitrite Negative (Negative); Urine Occult Blood 4+ (Negative); Urine Urobilinogen 1+ (Neg - 1+)
--- NOTE | 2024-04-14 07:35 | W.PN.CD ---
Today's Communication / Plan
-
CABG today.
Impression / Plan
-
Background: 64-year-old gentleman with a past medical history of CAD status post PCI in 2004 and 2006 of the LAD, mild the reduced ejection fraction with an EF of 50%, hypertension and hyperlipidemia presents for evaluation of abdominal and chest
pain in the setting of a high risk stress test on 04/07/2024, found to have multivessel CAD.
#CAD with ACS
-Chronic, progressive.
-Cath shows MVD, atretic LAD with severe pLAD ISR, highly tortuous pRCA.
-CABG today.
-Anticipate routine post operative management.
-Restart home medications when hemodynamics will permit.
#Mild ischemic cardiomyopathy
-New diagnosis.
-GDMT on hold for surgery.
-Restart GDMT when post-op hemodynamics will permit.
#HLD
-Chronic.
-Aggressive lipid management given premature CAD.
-Continue atorvastatin 40 mg daily.
-Goal LDL < 55.
Subjective/Interval History:
One episode of chest pain overnight, relieved by nitroglycerin SL x1 (per chart).
Patient is in OR.
DATA:
Cath:04/08/24
HEMODYNAMIC DATA
Weight (kg): 86.6
AO (s/d/x, mmHg): 133/83/105
LV (s/x mmHg): 135/10 (A wave to 22)
CONCLUSIONS
1. Right dominant circulation with a nonocclusive, 40% lesion of the ostial left main, a critical, 90% in-stent restenosis lesion in the proximal LAD stent leading into a large diagonal, followed by chronic total occlusion of the stent into the
true LAD, a hazy, 50-60% lesion in the origin of OM1 and a 70-80% lesion in the mid RCA after severe, hairpin turn tortuosity in the proximal RCA. The distal diagonal is collateralized by a large epicardial collateral from the terminal left
posterolateral branch. The mid and distal LAD are supplied by faint collaterals from the distal RCA.
2. Normal filling pressures (LVEDP = 10 mmHg at 86.6 kg) with evidence of diastolic dysfunction (A wave to 22 mmHg).
3. Abnormal vessel loop versus stenosis in the right radial artery, precluding cardiac catheterization from this approach.
TTE 04/08/24:
CONCLUSIONS
Left ventricular ejection fraction is 45-50%. Mid to distal anteroseptal, mid
anteroseptal, apical septal, and apical severe hypokinesis.
Normal right ventricular size and function.
No significant valvular disease.
No significant change since the prior study of 07/27/22.
TTE 07/27/22:
CONCLUSIONS
LV ejection fraction is is approximately 50%, by visual assessment. Mid to
distal anteroseptal, mid anteroseptal, apical septal, and apical severe
hypokinesis.
Normal right ventricular size and function.
No significant valvular disease.
Compared to previous echo on 01/03/2018, there is a slight improvement in LVEF
(previously 45%).
Physical Exam
Vital Signs/Labs
Vital Signs
Temp Pulse Resp BP Pulse Ox
36.6 C 91 18 141/92 100
04/14/24 06:17 04/14/24 06:13 04/14/24 06:17 04/14/24 06:13 04/14/24 06:17
04/12/24 04/13/24 04/14/24
11:59 11:59 11:59
Actual Weight 86 kg 86.1 kg
04/14/24 02:46
04/14/24 02:46
PT 14.2 Sec (11.4-14.6) 04/09/24 05:52
INR 1.05 04/09/24 05:52
APTT 74.0 Sec (23.4-35.0) H 04/14/24 02:46
Triglycerides 50 mg/dl (10-149) 04/08/24 06:41
LDL Cholesterol, Calc 40 mg/dl 04/08/24 06:41
VLDL Cholesterol, Calc 10 mg/dl (0-30) 04/08/24 06:41
HDL Cholesterol 41 mg/dl 04/08/24 06:41
Physical Exam
Constitutional: No acute distress, Comfortable and Other (Intubated/sedated.)
Neuro/Psych: Other (Sedated by anesthesia.)
Data Reviewed
-
Date of Service: April 14, 2024
Medical Decision Making: Reviewed Test Results, Test Interpretation and Review of Case with other Provider
EKG: Tracing Personally Visualized and interpreted and Report Reviewed by me
Echo: Tracing Personally Visualized and interpreted and Report Reviewed by me
X-Ray/CT/US/MRI/NUC/PET: Image Personally Visualized and interpreted and Report Reviewed by me
Medical Tests (PFT, Pathology etc): Image Personally Visualized and interpreted and Report Reviewed by me
Labs: Labs Reviewed by me
Old Records: Reviewed
[2024-04-14 07:42] LABS: Urine Bacteria Few (Negative); Urine Red Blood Cell 30-40 /HPF (0-2); Urine Squamous Cell 0-2 /LPF (Few)
--- NOTE | 2024-04-14 08:33 | CM ---
Reviewed chart. Mr. Beverly is in the operating room today. Prior to admission he resides with his spouse in a two story home with one step to enter. Prior to admission he was independent with ambulation and adls. He does not have any DME in the
home. Medical work-up in progress. The discharge plan is to return home with his spouse and a home visit by the Transitional Care Nurse when medically stable.
[2024-04-14 09:23] LABS: ACT+ - POC 584 Seconds (82-134)
[2024-04-14 09:53] LABS: ACT+ - POC 499 Seconds (82-134); B.E. - POC 3.1 mmol/L; Glucose - POC 167 mg/dl (70-99); HCO3 - POC 29 mmol/L (21-28); Hematocrit - POC 27 % PCV (42-52); Hemodilution- POC Yes; Ionized Calcium - POC 1.02 mmol/L (1.15-1.33); Lactate - POC 1.13 mmol/L (0.36-0.75); O2 Saturation %Calculated-POC 99.9 % (94-98); PCO2 - POC 47 mmHg (35-48); PO2 - POC 313 mmHg (83-108); POC Comment CPB; Potassium - POC 5.8 mmol/L (3.5-5.1); Sodium - POC 135 mmol/L (136-145); Specimen Type - POC Arterial; pH - POC 7.39 (7.35-7.45)
[2024-04-14 10:18] LABS: B.E. - POC 3.2 mmol/L; Glucose - POC 213 mg/dl (70-99); HCO3 - POC 30 mmol/L (21-28); Hematocrit - POC 29 % PCV (42-52); Hemodilution- POC Yes; Ionized Calcium - POC 1.13 mmol/L (1.15-1.33); Lactate - POC 1.46 mmol/L (0.36-0.75); O2 Saturation %Calculated-POC 99.8 % (94-98); PCO2 - POC 53 mmHg (35-48); PO2 - POC 226 mmHg (83-108); POC Comment CPB; Potassium - POC 5.5 mmol/L (3.5-5.1); Sodium - POC 138 mmol/L (136-145); Specimen Type - POC Arterial; pH - POC 7.36 (7.35-7.45)
[2024-04-14 10:22] LABS: ACT+ - POC 488 Seconds (82-134)
[2024-04-14 10:57] LABS: ACT+ - POC 453 Seconds (82-134)
[2024-04-14 10:57] LABS: B.E. - POC -0.3 mmol/L; Glucose - POC 175 mg/dl (70-99); HCO3 - POC 25 mmol/L (21-28); Hematocrit - POC 30 % PCV (42-52); Hemodilution- POC Yes; Hemoglobin Calculated - POC 10.1; Ionized Calcium - POC 1.14 mmol/L (1.15-1.33); Lactate - POC 2.41 mmol/L (0.36-0.75); O2 Saturation %Calculated-POC 99.4 % (94-98); PCO2 - POC 41 mmHg (35-48); PO2 - POC 162 mmHg (83-108); POC Comment WARM; Potassium - POC 4.9 mmol/L (3.5-5.1); Sodium - POC 140 mmol/L (136-145); Specimen Type - POC Arterial; pH - POC 7.39 (7.35-7.45)
[2024-04-14 11:14] LABS: B.E. - POC -0.5 mmol/L; Glucose - POC 151 mg/dl (70-99); HCO3 - POC 24 mmol/L (21-28); Hematocrit - POC 28 % PCV (42-52); Hemodilution- POC Yes; Hemoglobin Calculated - POC 9.5; Ionized Calcium - POC 1.38 mmol/L (1.15-1.33); Lactate - POC 1.72 mmol/L (0.36-0.75); PCO2 - POC 39 mmHg (35-48); PO2 - POC 372 mmHg (83-108); POC Comment POST; Potassium - POC 3.9 mmol/L (3.5-5.1); Sodium - POC 141 mmol/L (136-145); Specimen Type - POC Arterial
[2024-04-14 11:14] LABS: ACT+ - POC 120 Seconds (82-134)
--- NOTE | 2024-04-14 11:54 | W.PN.CT.SURG ---
CT Surgery Operative Note
-
CARDIAC SURGERY OPERATIVE REPORT
Preoperative Diagnosis: Multivessel Coronary Artery Disease with NSTEMI
Postoperative Diagnosis: Same
Procedure(s) Performed:
1. Standard sternotomy with aortic and right atrial cannulation
2. Multi arterial coronary artery bypass grafting x 4 (In situ RÍOS to LAD, Ao to L Radial to Large Diagonal, Ao to RSVG to OM1, Ao to RSVG to RPDA)
3. Endoscopic artery and vein harvesting of left radial and right lower extremity, respectively
4. Placement of temporary ventricular pacing wire
5. Left atrial appendage exclusion [35 mm clip]
6. Transesophageal echocardiography
Date of Surgery: 04/14/24
Comorbidities:
1. Heart failure reduced left ventricular ejection fraction
2. NSTEMI
3. Multivessel coronary disease with previous PCI and stenting to the LAD
4. Hypertension
5. Hyperlipidemia
6. Left heart cath on this admission
Attending Surgeon: Rick Fuentes MD, MS
Assistants: Antoinette Wadsworth PA-C (present and necessary to application assistant, endoscopic vein harvest, retraction, suction, exposure, suture management, and wound closure under my direction), Rick Jack PA-C (Endo Radial Artery [place])
Anesthesiology: Renzo Drew MD and Janet Lenz CRNA
Scrub and Circulating RNs: Becca Siddiqi RN, Olga Higuera RN
Hub Borer: King Weldon CCP
Anesthesia: GETA
EBL: per perfusion records
Products: None
CPB Time: 93 minutes
Aortic Cross Clamp Time: 76 minutes
Indication(s) for Procedures: This is a 64-year-old male with an extensive past medical history regarding previous coronary artery disease. He underwent stenting of his LAD approximately 18 years ago and recently presented with chest discomfort and
was found to have an NSTEMI. He underwent left heart cath this admission and was found to have essentially a chronic total occlusion of his LAD with severe stenosis of a large diagonal that has taken over much of his apical and lateral territory.
There is also collateralization from his left to left system and right to left system feeling the LAD faintly. Given his young age, disease pattern, multidisciplinary team discussion was to pursue operative revascularization as the optimal strategy.
Conduit(s) Quality:
RÍOS -excellent/skeletonized
Left radial�good/smaller in caliber but overall good conduit
RSVG -good/minor varicosities but overall relatively uniform with minimal thickness
Target(s) Quality:
RCA/PDA -excellent/flow probe assessment with a mean flow of 50 and a pulsatility index of 2
OM 1-good/flow probe assessment with a mean flow of 35 with a pulsatility index of 2.9
Large diagonal�excellent/mean flow 42 with a pulsatile index of 2.4
LAD -good/accommodated a 1.5 mm probe pretty easily, mean flow of 13 with a pulsatile index of 3.0
Implants:
35mm Clip, SN [id number]
Findings: His left ventricular ejection fraction preoperatively was mildly reduced and there was evidence of apical hypokinesis. Following surgery his apex although still hypokinetic was moving much better than preoperatively. There was evidence
of a previous infarct in the apical territory along the lateral side. I was able to identify a suitable LAD target for grafting. The RÍOS was harvested in a skeletonized fashion. Following bypass grafting, test dose cardioplegia was given down each
distal and confirmed patency and hemostasis. Flow probe was used to assess all grafts at the conclusion of the case after coming off of cardiopulmonary bypass. His left atrial appendage verified to be free of any thrombus or debris preoperatively
and found to be totally occlusive postoperatively. He did not require any inotropic support, he was in sinus rhythm following the surgery, did not require any blood products.
Description of Procedure: The patient was taken to the operating room. Their identity and procedure to be performed were verified and they were positioned supine on the operating table. Induction via general anesthesia with endotracheal intubation
was performed and central venous access and arterial monitoring were inserted. A preoperative transesophageal echocardiogram was performed to assess cardiac function and valvular function. The patient was then prepped and draped from chin to feet in
a sterile fashion. A preoperative time-out was performed with all members of the team present. A midline chest incision was performed along with median sternotomy. Simultaneous endoscopic access of the left radial and lower extremity for saphenous
vein harvest was obtained along with administration of an initial 5,000 units of IV heparin. A RulTract sternal retractor was positioned to exposure the left internal mammary bed. The mammary was harvested and found to have good flow. A bulldog
clamp was applied to the distal end of the mammary after dividing it. It was wrapped in a papaverine soaked RayTec and replaced back into the left hemithorax. The RulTract was exchanged for a median sternal retractor. The innominate vein was
isolated. Full heparinization was given (a total of 50,000 units). We created a pericardial well. The aortic cannulation site was chosen where it was soft, pliable, and free of calcium. Cannulation was performed with an arterial cannula in the
ascending aorta and a triple-stage venous cannula through the right atrial appendage. The arterial cannula line had an appropriate bounce and correlating pressures with test dosing. Next, a root vent/antegrade cannula was inserted into the ascending
aorta. The ACT was confirmed to be over 400 and retrograde autologous priming was performed before commencing cardiopulmonary bypass. The pulmonary artery was away from the aorta to facilitate a clamp site. The aortic cross-clamp was
placed after decreasing the flow on the bypass and mean arterial pressure. A total of 1.2L initial dose of antegrade Del-Nido cardioplegia solution was given and planned for re-dosing every 75 minutes as necessary. There was rapid electro-mechanical
arrest of the heart at 300 cc of cardioplegia. The left ventricle was observed for distention on echocardiogram and manual palpation. Cold slush was placed into a sponge and topically on the RV while we systemically cooled to 34 degrees centigrade.
Once the heart was fully arrested was rotated medially and the ligament of Osvaldo was divided. The left atrial appendage was sized to a 35 mm clip which was deployed flush the base.
Since the heart was ready rotated medially I had access to the first OM, this was dissected and found to be intramyocardial. The vessel itself was adequate for bypass grafting and so a small coronary arteriotomy was created. The vein graft was
beveled accordingly and end-to-side anastomosis was created with 7-0 Prolene in a running fashion. Test dosing of antegrade cardioplegia down the graft yielded excellent mean flow and hemostasis. The vein graft was then sized to the aorta and cut
accordingly. I positioned the heart to expose the distal right coronary at the posterior descending artery. A big sandy blade was used to expose the coronary and perform the arteriotomy. Coronary Rene scissors were used to enlarge the incision. The
saphenous vein was trimmed and beveled to an appropriate size. The distal anastomosis was performed using 7-0 prolene in an end-to-side fashion. Antegrade cardioplegia was administered into the graft. Appropriate hemostasis and flow were confirmed.
The graft was measured for length to the aorta and cut. A suitable site on the large diagonal vessel that is running parallel down towards the apex was identified. We dissected and prepared the distal target in a similar fashion. The left radial
artery was then beveled the distal end and an end-to-side anastomosis was created with a 8-0 prolene secured with a micro core. Antegrade cardioplegia was administered into the jesús with the aid of a Angiocath t. Appropriate hemostasis and flow were
confirmed. The graft was measured for length to the aorta and cut. A suitable target on the mid/distal left anterior descending was identified. We dissected and prepared the distal target in a similar fashion. We retrieved the RÍOS from the chest
and created a pericardial opening while being cognizant of the phrenic nerve to facilitate the course of the mammary. The distal end of the mammary was prepped and beveled to size. We verified orientation and length of the JENNIFER and found brisk flow.
An end-to-side anastomosis was created with a 8-0 prolene and secured with a micro core knot. We temporarily released the bulldog clamp on the mammary to inspect flow. Perfusion to the LAD territory was visualized and hemostasis was confirmed. The
bull clamp was replaced on the mammary. The heart was filled and the root was distended with antegrade cardioplegia to make final assessment of graft length and orientation. We created 3 aortotomies using a #11 blade then a 4.0mm aortic punch. The
proximal anastomoses were created in an end-to-side fashion using 6-0 prolene for the vein grafts and 7-0 Prolene for the radial graft. At the the same time, we re-warmed to 36.5 degrees centigrade. The bulldog clamp was removed from the mammary.
Temporary bipolar ventricular pacing wires were placed on the base of the right ventricle. The patient was placed in a Trendelenburg position and flows on bypass were lowered. The aortic cross clamp was removed and flows were slowly brought back up.
All bypass grafts were inspected and were free from kinking or twisting. The distal and proximal anastomoses appeared hemostatic. There was some bleeding from the pacer wire site and so this was reinforced with the vein pledget. Once
transesophageal echocardiography appeared satisfactory for de-airing, the flows were temporarily lowered for root vent removal. After verifying acceptable parameters, we initiated weaning from cardiopulmonary bypass. Once we were off cardiopulmonary
bypass, the venous cannula was clamped and removed. A test dose of protamine was administered and the patient was monitored for any adverse reaction before resuming protamine. Once half of the protamine dose was delivered, pump suckers were turned
off and the systolic blood pressure was lowered for aortic decannulation. The aortic cannula was removed and pursestrings were tied down. All cannulation sites were oversewn with a 4-0 prolene. The mammary bed was inspected and hemostasis was
confirmed. Once the mediastinum was hemostatic, 19Fr Jose drain was placed in the left pleural cavity and two 24Fr Jose drains were placed within the pericardium. The sternum was approximated with 4 #7 single and 3 #8 double stainless steel wires.
Fascia was approximated with #1 vicryl suture. The subcutaneous, dermis and epidermis were closed in layers in a running fashion. The skin wound was cleansed and dressed.
All instrument, sponge, and needle counts were confirmed to be correct x 2 at the end of the operation. The patient was transferred to the cardiac intensive care unit in critical but stable condition.
I, Dr. Rick Fuentes, was present, scrubbed for, and performed all critical elements of this procedure.
Rick Fuentes MD, MS
Cardiothoracic Surgeon
[facility]
This operative dictation was created using the [employer] dictation system. Please excuse any grammatical, typographical, or 'sound alike' errors
[2024-04-14 12:12] LABS: Glucose - Point of Care 132 mg/dl (70-99)
--- NOTE | 2024-04-14 12:18 | W.PN.UPDATE ---
Update Note
Progress Note Update
64 year old male with known coronary disease and prior stent to LAD in 2004, was admitted 04/08/24 for CP and abnormal stress. Troponin 0.038, R/I NSTEMI. [facility] reported multi vessel CAD. Last Plavix 04/08
IV fluids: 1200
U.O.:� 450
Blood:� none
Wires:� 1 bipolar v-wire
Infusions: Cardizem @ 5; Levophed @ 6; Precedex @ 0.7
�
NEURO: sedated on Precedex, pupils +2mm B/L
RESP: #8OT @22cm> 550/40%//5. Lungs clear B/L. 2 mediastinal (5cc on arrival) and L pleural (5cc on arrival) chest tubes to -20cm suction. Sanguineous drainage
CV: RRR +S1, S2, no S3, no�rub, no murmur. Dermabond to median sternotomy. RIJ w/slick intact
ABD: round, soft, no BS
EXT: no edema, +2/4 DP pulses B/L, no femoral bruit, RLE and LUE DULCE wrap intact; right radial A-line intact
: Tucker with clear yellow urine
�
A/P: POD #0 s/p CABG x 4 (RÍOS to LAD, L Radial to Large Diagonal, RSVG to OM1, RSVG to RPDA, Left atrial appendage exclusion [#35 mm clip]
PARAMJIT: EF�improved 50-55% (post) from 40-45% (pre)
- wean and extubate
# CAD/NSTEMI
# ICM
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
- will require ASA, Plavix, high intensity statin, beta peter
- calcium peter for radial graft patency x 3 months
- resume Entresto prior to DC
- Protonix for GI prophylaxis while on Plavix
�
# acute surgical blood loss anemia-expected
- trend CBC
- chest tubes with minimal output>monitor
�
[2024-04-14 12:21] LABS: Hematocrit 33.6 % (39.0-52.0); Hemoglobin 12.5 g/dL (13.0-18.0); Platelet Count 142 10^3/uL (130-400)
[2024-04-14 12:27] LABS: HCO3 24.3 mmol/L (21-28); Ionized Calcium 1.29 mMOL/L (1.15-1.33); O2 Saturation % 98.8 % (94-98); PCO2 42 mmHg (35-48); PO2 108 mmHg (83-108); Potassium 3.7 mMOL/L (3.5-5.1); Sodium 134 mMOL/L (136-145); pH 7.37 (7.35-7.45)
[2024-04-14 12:29] LABS: INR 1.38; PT 17.2 Sec (11.4-14.6)
[2024-04-14 12:30] LABS: APTT 28.8 Sec (23.4-35.0)
[2024-04-14] MEDS: LR 250 ML IV (12:30)
[2024-04-14 12:33] LABS: Blood Urea Nitrogen 11 mg/dl (9-20); Estimated Creatinine Clearance 83 ml/min; Glucose 137 mg/dl (70-99); Magnesium 2.8 mg/dl (1.6-2.3)
[2024-04-14] MEDS: KCL 50 IV ×2 (12:45→13:57)
[2024-04-14 12:57] LABS: Glucose - Point of Care 123 mg/dl (70-99)
[2024-04-14] MEDS: ANCEF 10 IV ×2 (13:00→13:01)
[2024-04-14] MEDS: NEURONTIN PO (13:01)
[2024-04-14] MEDS: NORVASC PO (13:01)
[2024-04-14] MEDS: NSS 500 IV (13:01)
[2024-04-14] MEDS: TORADOL IV (13:02)
[2024-04-14] MEDS: ASPIR LOW (ENTERIC COATED) PO (13:04)
[2024-04-14] MEDS: TOPROL XL PO (13:04)
--- NOTE | 2024-04-14 13:08 | PTCARENOTE ---
Pt received from [facility]. Pt intubated and sedated. Precedex infusing. EKG shows SR w/ 1st degree heart block. HR 60s. Temporary epicardial v-wires intact and unplugged from box. BPs 100s/50s. Levo infusing per protocol and for SBP's 90-[address]
Fuentes. B/L DP pulses palpable. Left ulnar pulse confirmed w/ Doppler. Right radial pulse present. No edema. Pt intubated w/ EET #8, 24 cm @ R lip. FiO2 40%. POX 97%. Mouth care completed. See worklist for full vent settings. Mediastinal CTx2 and L
pleural Ct to -20 suction, no airleak noted at this time, and output WNL. Abdomen soft. Hypoactive BS. Tucker catheter C/D/I and draining yellow urine. Tucker care completed. Stat lock applied. Sternal incision approximated and SUGAR TRUCKER. Right SVG site
approximated and wrapped w/ DULCE. Left radial graft site wrapped in DULCE. Right groin puncture site dressing C/D/I and ecchymotic from previous cath. Right IJ cordis w/CVP and right radial a-line leveled, zeroed, and flushed. Glycemic protocol
followed. Cardizem infusing for radial graft. 250 LR bolus administered for low BP/CVP. EKG completed. Labs drawn and sent. Potassium replaced. Elan meléndez applied. See worklist for full nursing assessment and interventions.
--- NOTE | 2024-04-14 13:49 | CON.INTV ---
Consultation
Consultation Request
Date/Time Consultation Requested: 04/14/2024-1:30 PM
Date/Time Consultation Performed: 04/14/2024-2 PM
Requesting Provider: Cardiovascular surgery
Performing Provider: Dr. Owens
Reason for Consultation: Postoperative ventilator/critical care management
Medical History
-
Chief Complaint: CAD
History of Present Illness:
64-year-old male with a history of CAD/stents, ischemic cardiomyopathy, hypertension and hyperlipidemia who was noted to have significant CAD and underwent CABG-surgery specialist consulted for postoperative ventilator/critical care management 04/14/2024.
Patient is sedated on the ventilator review of systems is unobtainable. Operative records were reviewed. Chest tubes are not dumping. He is on low-dose norepinephrine and insulin drip.
Past Medical History
Past Medical History: None (CAD-prior PCI LAD 2004. Ischemic cardiomyopathy-EF 50%. Hypertension. Hyperlipidemia.)
Social History
Tobacco: Non-smoker
Alcohol: Daily
Drug: None
Living: With Family
Occupational Exposures: No known asbestos exposure
Environmental Exposures: No known tuberculosis exposure
Family History
Family History: Early CAD (Father in his 40s)
Allergies / Home Medications
Allergies
Allergy/AdvReac Type Severity Reaction Status Date / Time
No Known Allergies Allergy Verified 04/13/24 20:26
Home Medications
�Medication �Instructions �Recorded �Confirmed �Last Taken �Type
aspirin 81 mg tablet,delayed 81 mg PO DAILY Blood Clot 10/29/10 04/08/24 10/29/10 History
release Prevention/Tx
atenolol 25 mg tablet 25 mg PO DAILY Heart 10/29/10 04/08/24 10/29/10 History
Disease/Condition
clopidogrel 75 mg tablet 75 mg PO DAILY Blood Clot 10/29/10 04/08/24 10/29/10 History
Prevention/Tx
atorvastatin 40 mg tablet (Lipitor) 40 mg PO QPM High Cholesterol 04/08/24 04/08/24 Unknown History
cyanocobalamin (vitamin B-12) 1,000 mcg PO DAILY Supplement 04/08/24 04/08/24 Unknown History
1,000 mcg tablet
famotidine 40 mg tablet (Pepcid) 40 mg PO HS Gastrointestinal Issue 04/08/24 04/08/24 Unknown History
omeprazole 20 mg tablet,delayed 20 mg PO DAILY Gastrointestinal 04/08/24 04/08/24 Unknown History
release Issue
sacubitril 49 mg-valsartan 51 mg 1 tab PO BID Heart 04/08/24 04/08/24 Unknown History
tablet (Entresto) Disease/Condition
Review of Systems
-
Unable to Obtain full review of systems at this time due to: Other (Per HPI)
Vitals / Labs / Diagnostic Testing
Vital Signs
Temp Pulse Resp BP Pulse Ox
97.1 F 67 12 97/67 97
04/14/24 13:00 04/14/24 13:00 04/14/24 13:00 04/14/24 13:00 04/14/24 13:25
Lab Data
04/14/24 12:04
Laboratory Results
04/13/24 04/14/24 04/14/24
18:42 02:46 12:04
PT 17.2 H
INR 1.38
APTT 100.6 H 74.0 H 28.8
pH 7.37
pCO2 42
pO2 108
HCO3 24.3
O2 Delivery Level
Diagnostic Testing:
Physical Exam
-
Exam:
Well-nourished and well-developed in no apparent distress
HEENT-atraumatic, normocephalic, oral tracheal intubation
Heart-regular rate and rhythm-no murmurs, rubs or gallops
Chest-clear to auscultation, no wheezes, crackles, median sternotomy bandage is not removed
Abdomen soft nondistended
Extremities-no cyanosis, clubbing, edema and good peripheral pulses
Integument-intact, no rashes, lesions or ecchymosis
Neurologically not alert, not oriented, not moving any of his extremities sedated on a ventilator
Assessment
-
64-year-old male with a history of CAD/stents, ischemic cardiomyopathy, hypertension and hyperlipidemia who was noted to have significant CAD and underwent CABG-surgery specialist consulted for postoperative ventilator/critical care management 04/14/2024.
Symptomatic coronary artery disease
Status post CABG x 4-RÍOS-LAD, AO to L radial 2 large diagonal, AO to 2 RSVG to OM1,AO to RSVG to RPDA, left atrial appendage exclusion-Dr. Fuentes 04/14/2024-
Mild rbsxfh-bwlvypdwso-ispwftvble 12.5
Hyperglycemia
Conditions present prior to admission:
CAD-prior PCI LAD 2004.
Ischemic cardiomyopathy-EF 50%.
Hypertension.
Hyperlipidemia.
Plan
Ventilator settings reviewed
FiO2 will be weaned
Minute ventilation will be adjusted
Arterial blood gases will be monitored
Spontaneous breathing trial will be attempted with hopeful extubation after anesthesia/sedation wear off
The patient does not have pulmonary artery catheter
Pressors/antihypertensive/inotropes/diuretics will be provided as needed
Monitor chest tube output
Monitor hemoglobin
Monitor platelet count and coags
Transfuse blood product if needed
CT surgery following chest tubes
Monitor blood sugar
Insulin drip per protocol
Aspiration precautions
VAP prevention protocol
DVT prophylaxis
Early nutrition
Early mobilization
Critical care statement: A total of 55 minutes of critical care time was provided for this patient today. This includes management of ventilator, spontaneous breathing trial, arterial blood gases, pressors, of unstable vital signs, evaluation of the
patient at bedside, reviewing the patient's pertinent medical records including radiographs, microbiology, laboratory evaluations, and discussion with primary team and critical care nursing.
Diagnostic data:
Chest x-ray 02/17/2022-NAD
Chest x-ray 04/14/2024-postoperative changes, lungs are clear
CT chest 04/08/2024-no acute disease of the chest, too small to characterize hypodense hepatic lesion likely small cyst or hemangioma
Transesophageal echocardiogram 04/14/2024-EF 40-45%, trace mitral regurgitation
Cardiac catheterization 04/08/2024
1. Right dominant circulation with a nonocclusive, 40% lesion of the ostial left main, a critical, 90% in-stent restenosis lesion in the proximal LAD stent leading into a large diagonal, followed by chronic total occlusion of the stent into the
true LAD, a hazy, 50-60% lesion in the origin of OM1 and a 70-80% lesion in the mid RCA after severe, hairpin turn tortuosity in the proximal RCA. The distal diagonal is collateralized by a large epicardial collateral from the terminal left
posterolateral branch. The mid and distal LAD are supplied by faint collaterals from the distal RCA.
2. Normal filling pressures (LVEDP = 10 mmHg at 86.6 kg) with evidence of diastolic dysfunction (A wave to 22 mmHg).
3. Abnormal vessel loop versus stenosis in the right radial artery, precluding cardiac catheterization from this approach.
Data Reviewed
-
EKG: Report reviewed by me
Radiology: Report reviewed by me
CT Scan: Report reviewed by me
Medical Tests (Nuc Med, Echo etc): Report reviewed by me
Labs: Labs reviewed by me
Old Records: Reviewed
Critical Care Time (in minutes): 55
[2024-04-14 14:05] LABS: Glucose - Point of Care 123 mg/dl (70-99)
[2024-04-14] MEDS: TYLENOL PO (14:42)
[2024-04-14 15:08] LABS: B.E. -2.7 mmol/L; HCO3 22.6 mmol/L (21-28); Ionized Calcium 1.18 mMOL/L (1.15-1.33); O2 Saturation % 98.3 % (94-98); PCO2 40 mmHg (35-48); PO2 118 mmHg (83-108); Potassium 4.3 mMOL/L (3.5-5.1); pH 7.36 (7.35-7.45)
--- NOTE | 2024-04-14 15:29 | PTCARENOTE ---
Pt awake and breathing over vent. Respiratory at bedside and pt placed on CPAP ~1430. ABG drawn and sent ~1300. 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 Respiratory at bedside. Pt extubated to 6 L NC. POX 94%. Pt AAOx3. IS 500. Pt oriented to room. Call hawley
within reach.
[2024-04-14] MEDS: OFIRMEV 100 IV (15:53)
[2024-04-14 16:04] LABS: Glucose - Point of Care 150 mg/dl (70-99)
[2024-04-14 16:16] LABS: Hematocrit 36.1 % (39.0-52.0); Hemoglobin 13.4 g/dL (13.0-18.0); Platelet Count 226 10^3/uL (130-400)
--- NOTE | 2024-04-14 16:16 | PTCARENOTE ---
Pt reassessed. Pt AAOx3. SR on the tele monitor. HR 70s. BP 90-100s/50-60s. Levo infusing per protocol. CVP ~5-8. Pt on 6 L NC. POX 96%. Deep breathing encouraged. Mediastinal CTx2 and Left pleural CT to -20 suction, no air-leak noted at this time,
and output WNL. Tucker catheter C/D/I and draining yellow urine. All surgical sites stable. Glycemic protocol followed. Cardizem infusing for left radial graft. Pt c/o CP - Ofirmev given, see MAR. at bedside. Call hawley within reach.
[2024-04-14 17:08] LABS: Glucose - Point of Care 124 mg/dl (70-99)
[2024-04-14] MEDS: PACERONE 200 MG PO (17:25)
[2024-04-14] MEDS: LOW STRENGTH ASPIRIN 81 MG PO (17:25)
[2024-04-14] MEDS: NEURONTIN 100 MG PO ×2 (17:26→21:13)
[2024-04-14] MEDS: TORADOL 15 MG IV (17:27)
[2024-04-14] MEDS: ANCEF 5 IV (19:10)
[2024-04-14] MEDS: SENOKOT-S 1 TABLET PO (19:10)
[2024-04-14] MEDS: LIPITOR 40 MG PO (19:10)
[2024-04-14 19:16] LABS: Glucose - Point of Care 127 mg/dl (70-99)
[2024-04-14] MEDS: LEVOPHED 250 IV (19:51)
--- NOTE | 2024-04-14 20:11 | PTCARENOTE ---
Pt reassessed. No acute change in assessment. Pt AAOx3 and following commands appropriately. Pt SR w/ 1st degree on the tele monitor. HR 60s. BP 90-100s/50-60s. Levo infusing per protocol. CVP ~1-2. Pt on 4 L NC. POX 98%. CTx3 assessment unchanged.
Deep breathing encouraged. Tucker catheter C/D/I and draining yellow urine. CVP/a-line leveled, zeroed, and flushed. Glycemic protocol followed. Cardizem maintained. Call hawley within reach.
[2024-04-14 20:59] LABS: Glucose - Point of Care 126 mg/dl (70-99)
[2024-04-14] MEDS: TYLENOL 1000 MG PO (21:13)
[2024-04-14] MEDS: PACERONE PO (21:37)
[2024-04-14] MEDS: LR 250 IV (21:38)
[2024-04-14 22:10] LABS: Glucose - Point of Care 124 mg/dl (70-99)
--- NOTE | 2024-04-14 23:00 | PTCARENOTE ---
bedside report received from previous RN. pt AAOx4, c/o sternal incision pain. see MAR for PRN pain medicine man. NSR w 1st degree AVB on monitor, HR 70s. temporary epicardial v-wires intact and unplugged from box. right radial art line intact. SBPs
100s-110s. B/L DP pulses palpable. left ulnar pulse confirmed w doppler. right radial pulse present. no edema noted. heart tones clear. cardizem gtt infusing @ 2.5mg for left radial graft. B/L breath sounds present. POX 94% on 2LNC. CT x3 intact to
-20 suction, no air leak present, drainage WNL. abdomen soft. hypoactive BS present. insulin gtt infusing per glycemic protocol. guadarrama catheter intact, draining CYU, UO adequate. RIJ cordis + slic catheter intact w KVO infusing. all surgical sites
stable. see worklist for full assessment, VS, and interventions. pt resting comfortably.
[2024-04-14] MEDS: DILAUDID 0.5 MG IV (23:18)
[2024-04-14 23:21] LABS: Glucose - Point of Care 108 mg/dl (70-99)
[2024-04-15] VITALS (20 sets, daily range): BP systolic 88–138; BP diastolic 66–94; PULSE 85; O2SAT 99–100; BMI 25.8
[2024-04-15 00:16] LABS: Glucose - Point of Care 103 mg/dl (70-99)
[2024-04-15] MEDS: TORADOL 15 MG IV (00:16)
[2024-04-15 01:21] LABS: Glucose - Point of Care 117 mg/dl (70-99)
[2024-04-15] MEDS: DILAUDID 0.5 MG IV (02:25)
[2024-04-15] MEDS: ANCEF 5 IV ×2 (02:26→12:00)
[2024-04-15] MEDS: ZOFRAN 4 MG IV (02:26)
[2024-04-15] MEDS: ROXICODONE 5 MG PO ×2 (02:26→20:01)
[2024-04-15 03:38] LABS: Glucose - Point of Care 104 mg/dl (70-99)
--- NOTE | 2024-04-15 04:00 | PTCARENOTE ---
no acute changes, pt VSS. NSR, HR 70s. Levo on briefly @ 2mg. 250cc LR bolus given per CT PA. SBP now 110s off Levo. Cardizem gtt maintained @ 2.5mg. POX 95% on 2LNC. CT output and UO WNL. Insulin gtt maintained per protocol. all surgical sites
stable. AM labs drawn and sent. EKG done. pt sleeping between care.
[2024-04-15 04:24] LABS: Hematocrit 32.9 % (39.0-52.0); Mean Corp Hgb Conc. 36.5 g/dL (33.0-37.0); Mean Corpuscular Hgb 30.6 pg (27.0-31.0); Mean Corpuscular Volume 83.9 fL (80.0-94.0); Mean Platelet Volume 10.5 fL (7.4-10.4); Platelet Count 142 10^3/uL (130-400); Red Blood Cell Count 3.92 10^6/uL (4.70-6.10); Red Cell Dist. Width 12.3 % (11.5-14.5); White Blood Cell Count 12.4 10^3/uL (4.8-10.8)
[2024-04-15 04:44] LABS: Blood Urea Nitrogen 16 mg/dl (9-20); Calcium 8.2 mg/dl (8.4-10.2); Carbon Dioxide 24 mmol/L (22-30); Chloride 105 mmol/L (98-107); Estimated Creatinine Clearance 92 ml/min; Glucose 98 mg/dl (70-99); Magnesium 2.2 mg/dl (1.6-2.3); Potassium 4.5 mmol/L (3.5-5.1); Sodium 137 mmol/L (135-145); eGFR > 60.00
--- NOTE | 2024-04-15 04:58 | W.PN.CT ---
Today's Communication / Plan
-
-pod #1
-no issues overnight
-low UO - improved with LR
-drips: Cardizem 2.5 for radial graft and Insulin. Levo is off at 2:30 am
-has rub on exam, ? pericarditis on ECG
-deline
-d/c insulin
-d/c Tucker
-transition from iv Cardizem to po Norvasc for radial graft
-current meds (ASA, Plavix, Lipitor, Amio, Lopressor, Norvasc 2.5, Protonix)
-encourage IS, OOB
Assessment / Plan
-
- NSTEMI/mv-CAD - s/p Multi arterial coronary artery bypass grafting x 4 (In situ RÍOS to LAD, Ao to L Radial to Large Diagonal, Ao to RSVG to OM1, Ao to RSVG to RPDA); Left atrial appendage exclusion [35 mm clip] on 04/14/[address] Fuentes, pod #1
- Intraop PARAMJIT: left ventricular ejection fraction preoperatively was mildly reduced 40-45% and there was evidence of apical hypokinesis. Following surgery, his apex although still hypokinetic was moving much better than preoperatively, EF 50-55%.
There was evidence of a previous infarct in the apical territory along the lateral side. His left atrial appendage verified to be free of any thrombus or debris preoperatively and found to be totally occlusive postoperatively.
- Ischemic cardiomyopathy
- Systolic chronic CHF
- NSTEMI
- Multivessel coronary disease with previous PCI and stenting to the LAD in 2004 and in-stent thrombosis in 2006
- Hypertension
- Hyperlipidemia
- Acute postop blood loss anemia - stable, no transfusion
- Acute postop atelectasis
- Suspected acute postop pericarditis/+rub
Discussed patient care with: Nursing and Care Team
Subjective
-
Date of Service: April 15, 2024
Objective Data
-
PT 17.2 Sec (11.4-14.6) H 04/14/24 12:04
INR 1.38 04/14/24 12:04
APTT 28.8 Sec (23.4-35.0) 04/14/24 12:04
Vital Signs
Vital Signs
Temp Pulse Resp BP Pulse Ox
98 F 75 11 102/66 94
04/15/24 00:00 04/15/24 00:00 04/15/24 00:00 04/15/24 00:00 04/15/24 00:00
CT Intake/Output/Weight
04/14/24 04/14/24 04/15/24
06:59 18:59 06:59
Intake Total 650 / 650 645.4 / 1101.7 456.3 / 1101.7
Output Total 720 / 980 260 / 980
Balance 650 / 650 -74.6 / 121.7 196.3 / 121.7
SaO2: 94
Physical Exam
-
General: Awake and AOx3
Cardiovascular: Regular rate & rhythm, No Murmurs and Rub
Respiratory: Decreased Breath Sounds
Sternum: Stable
Incision: Clean, Dry and Intact
Extremities: Other (trace edema b/l, 1+ DP b/l)
Abdomen: soft, nontender, +decreased bowel sounds
Data Reviewed
-
Lab Results: Results Reviewed
Medications: Active Meds Reviewed
Chest X-Ray: Report Reviewed and Image Reviewed
ECG: Report Reviewed and Image Reviewed
[2024-04-15 06:08] LABS: Glucose - Point of Care 114 mg/dl (70-99)
--- NOTE | 2024-04-15 06:45 | PTCARENOTE ---
RIJ slic and right radial arterial line d/c'd per orders without incident. guadarrama catheter d/c'd. pt assisted oob to chair without difficulty. weight obtained. VSS. NSR. Room air.
[2024-04-15] MEDS: TYLENOL 1000 MG PO ×3 (07:02→21:55)
--- NOTE | 2024-04-15 07:33 | W.PN.INTV ---
Today's Communication / Plan
Recommendations
Tolerated extubation
Wean FiO2
Increase activity
Cardizem transition to Norvasc
Insulin drip will be discontinued
Monitor chest tube output
Transfer to telemetry-call pulmonary if respiratory issues arise
Assessment
-
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
Symptomatic coronary artery disease
Status post CABG x 4-RÍOS-LAD, AO to L radial 2 large diagonal, AO to 2 RSVG to OM1,AO to RSVG to RPDA, left atrial appendage exclusion-Dr. Fuentes 04/14/2024-
Mild kxjrsu-hwndxglszh-mlrvbjecyy 12.5
Hyperglycemia
Conditions present prior to admission:
CAD-prior PCI LAD 2004.
Ischemic cardiomyopathy-EF 50%.
Hypertension.
Hyperlipidemia.
Plan
Tolerated extubation
Wean FiO2
Encourage incentive spirometry
Increase activity
Aspiration precautions
Lines will be removed
Pressors have been weaned-off since 2:30 AM (norepinephrine)
Cardizem will be transition for radial graft to Norvasc
Continue to monitor chest tube output
Follow hemoglobin
Continue to follow platelet count and coags
Transfuse blood product as needed
CT surgery following chest tubes as well
Follow blood sugar
Insulin drip will be discontinued
Early nutrition
Early mobilization
DVT prophylaxis
Patient will be transferred to telemetry phase-call pulmonary if respiratory issues arise
Reviewed the patient's pertinent medical records including radiographs, microbiology, laboratory evaluations, and discussion with primary team, and critical care nursing.
Diagnostic data:
Chest x-ray 02/17/2022-NAD
Chest x-ray 04/14/2024-postoperative changes, lungs are clear
CT chest 04/08/2024-no acute disease of the chest, too small to characterize hypodense hepatic lesion likely small cyst or hemangioma
Transesophageal echocardiogram 04/14/2024-EF 40-45%, trace mitral regurgitation
Cardiac catheterization 04/08/2024
1. Right dominant circulation with a nonocclusive, 40% lesion of the ostial left main, a critical, 90% in-stent restenosis lesion in the proximal LAD stent leading into a large diagonal, followed by chronic total occlusion of the stent into the
true LAD, a hazy, 50-60% lesion in the origin of OM1 and a 70-80% lesion in the mid RCA after severe, hairpin turn tortuosity in the proximal RCA. The distal diagonal is collateralized by a large epicardial collateral from the terminal left
posterolateral branch. The mid and distal LAD are supplied by faint collaterals from the distal RCA.
2. Normal filling pressures (LVEDP = 10 mmHg at 86.6 kg) with evidence of diastolic dysfunction (A wave to 22 mmHg).
3. Abnormal vessel loop versus stenosis in the right radial artery, precluding cardiac catheterization from this approach.
Subjective Dataa
Subjective Data
Date of Service:
Date of Service: April 15, 2024
Chief Complaint: Belt Measurer Follow Up, Pulmonary Follow Up and Vent Management Follow Up
Subjective:
Tolerated extubation, out of bed, no complaints of shortness of breath, pain controlled, no abdominal pain
Review of Systems
General: Other (Per HPI)
Objective Data
Data Reviewed
Vital Signs / I&O / Oxygen:
Vital Signs
Temp Pulse Resp BP Pulse Ox
97.7 F 73 15 112/72 97
04/15/24 06:00 04/15/24 06:00 04/15/24 06:00 04/15/24 06:00 04/15/24 06:00
Intake and Output
04/14/24 04/15/24 04/16/24
06:59 06:59 06:59
Intake Total 650 / 650 1510.1 / 1510.1
Output Total 1280 / 1280
Balance 650 / 650 230.1 / 230.1
SaO2 [CPAP/PSV] 97
SaO2 [SIMV] 96
SaO2 97
Nasal Cannula flow liters per 2
minute
Physical Exam
General: Respiratory Distress (n) and Comfortable
HEENT: Normocephalic, Anicteric and Moist Mucous Membranes
Cardiovascular: Regular Rhythm
Respiratory: Wheeze (n), Crackles (n), Rhonchi (n), Non-Labored Respirations and Accessory Resp Muscle Use (n)
GI: Soft, Non Distended and Non Tender
Neurology: Awake, Alert and No Motor Deficits
Skin: Warm, Good Color and Cyanosis (n)
Labs/Micro/Reports
Lab Data
04/15/24 03:31
04/15/24 03:31
Laboratory Results
04/14/24 04/14/24
12:04 15:00
PT 17.2 H
INR 1.38
APTT 28.8
pH 7.37 7.36
pCO2 42 40
pO2 108 118 H
HCO3 24.3 22.6
O2 Delivery Level
--- NOTE | 2024-04-15 08:11 | W.PN.CD ---
Today's Communication / Plan
-
Encourage incentive spirometry.
Ambulate when appropriate.
Transition to PO CCB. It will take amlodipine several days to have full effect.
Start colchicine 0.6 mg BID x 3 months.
Start high dose aspirin taper.
-ASA 975 mg TID x 3 days, then
-ASA 650 mg TID x 3 days, then
-ASA 325 mg TID x 3 days, then
-ASA 325 mg BID x 3 days, then
-ASA 325 mg daily x 3 days, then
-ASA 81 mg daily indefinitely.
Resume GDMT when hemodynamics will permit.
Not quite ready for diuresis.
Impression / Plan
-
Background: 64-year-old gentleman with a past medical history of CAD status post PCI in 2004 and 2006 of the LAD, mild the reduced ejection fraction with an EF of 50%, hypertension and hyperlipidemia presents for evaluation of abdominal and chest
pain in the setting of a high risk stress test on 04/07/2024, found to have multivessel CAD.
#CAD with ACS
-Chronic, progressive.
-Cath shows MVD, atretic LAD with severe pLAD ISR, highly tortuous pRCA.
-S/P CABG x4 (RÍOS to LAD, LRA to D1, SVG to OM1, SVG to RPDA) on 04/14/[address] Fuentes.
-S/P LAAE (#35 [place]) on 04/14/[address] Fuentes.
-Expectant post operative management.
-Titrate pressors/inotropes for MAP > 65 mmHg, CI > 1.8 L/min/m2. Norepinephrine off.
-CCB for LRA graft. It will take amlodipine several days to have its full effect.
-Encourage incentive spirometry.
-Ambulate when appropriate.
-Ok to start aspirin/clopidogrel for CABG management at surgery's discretion.
-Chest tube/pain management per CT surgery.
#Pericarditis
-New diagnosis, post operative.
-Rub on exam with BENNY + AR depression.
-Treatment with high dose aspirin taper and colchicine 0.6 mg BID x 3 months (no taper).
-ASA 975 mg TID x 3 days, then
-ASA 650 mg TID x 3 days, then
-ASA 325 mg TID x 3 days, then
-ASA 325 mg BID x 3 days, then
-ASA 325 mg daily x 3 days, then
-ASA 81 mg daily indefinitely.
#Mild ischemic cardiomyopathy
-New diagnosis.
-LVEF reportedly improved on PARAMJIT post CABG (45% --> 55%).
-Restart GDMT when post-op hemodynamics will permit.
#HLD
-Chronic.
-Aggressive lipid management given premature CAD.
-Continue atorvastatin 40 mg daily.
-Goal LDL < 55.
Subjective/Interval History:
CABG yesterday.
Extubated yesterday afternoon.
Norepinephrine weaned off at 02:30.
Remains on CCB for her LRA graft.
Weight is up 2.5 kg.
SaO2 = 97% on 2LNC.
EKG shows diffuse, mild BENNY and AR depression.
DATA:
Intraoperative PARAMJIT, 04/14/2024:
CONCLUSIONS
Mild left ventricular systolic dysfunction with multiple regional wall motion
abnormalities, especially anteroseptal septal [place]. EF 40 to 45%.
Normal right ventricular size and function.
The aorta has atheroma less than 5 mm and mild calcifications.
Trace MR. Trace TR.
POST OPERATIVE FINDINGS
Status post CABG x 4, the left ventricle are most more vigorously saurabh,
improved apex contractility as well as anteroseptal and septal [place]. EF
estimated 50 to 55%.
Normal right ventricular size and function.
Status post left atrial appendage exclusion, the clip is well-seated, no flow
seen through the left atrial appendage remnant.
Trivial to mild MR. Trace TR. The rest of the study is unchanged.
Cath:04/08/24
HEMODYNAMIC DATA
Weight (kg): 86.6
AO (s/d/x, mmHg): 133/83/105
LV (s/x mmHg): 135/10 (A wave to 22)
CONCLUSIONS
1. Right dominant circulation with a nonocclusive, 40% lesion of the ostial left main, a critical, 90% in-stent restenosis lesion in the proximal LAD stent leading into a large diagonal, followed by chronic total occlusion of the stent into the
true LAD, a hazy, 50-60% lesion in the origin of OM1 and a 70-80% lesion in the mid RCA after severe, hairpin turn tortuosity in the proximal RCA. The distal diagonal is collateralized by a large epicardial collateral from the terminal left
posterolateral branch. The mid and distal LAD are supplied by faint collaterals from the distal RCA.
2. Normal filling pressures (LVEDP = 10 mmHg at 86.6 kg) with evidence of diastolic dysfunction (A wave to 22 mmHg).
3. Abnormal vessel loop versus stenosis in the right radial artery, precluding cardiac catheterization from this approach.
TTE 04/08/24:
CONCLUSIONS
Left ventricular ejection fraction is 45-50%. Mid to distal anteroseptal, mid
anteroseptal, apical septal, and apical severe hypokinesis.
Normal right ventricular size and function.
No significant valvular disease.
No significant change since the prior study of 07/27/22.
TTE 07/27/22:
CONCLUSIONS
LV ejection fraction is is approximately 50%, by visual assessment. Mid to
distal anteroseptal, mid anteroseptal, apical septal, and apical severe
hypokinesis.
Normal right ventricular size and function.
No significant valvular disease.
Compared to previous echo on 01/03/2018, there is a slight improvement in LVEF
(previously 45%).
Physical Exam
Vital Signs/Labs
Vital Signs
Temp Pulse Resp BP Pulse Ox
36.5 C 73 15 112/72 97
04/15/24 06:00 04/15/24 06:00 04/15/24 06:00 04/15/24 06:00 04/15/24 06:00
04/13/24 04/14/24 04/15/24
11:59 11:59 11:59
Actual Weight 86 kg 86.1 kg 88.8 kg
04/15/24 03:31
04/15/24 03:31
PT 17.2 Sec (11.4-14.6) H 04/14/24 12:04
INR 1.38 04/14/24 12:04
APTT 28.8 Sec (23.4-35.0) 04/14/24 12:04
Magnesium 2.2 mg/dl (1.6-2.3) 04/15/24 03:31
Triglycerides 50 mg/dl (10-149) 04/08/24 06:41
LDL Cholesterol, Calc 40 mg/dl 04/08/24 06:41
VLDL Cholesterol, Calc 10 mg/dl (0-30) 04/08/24 06:41
HDL Cholesterol 41 mg/dl 04/08/24 06:41
Physical Exam
Constitutional: No acute distress and Comfortable
EENT: Anicteric and Moist mucous membranes
Cardiovascular: Rhythm & rate is regular, S1S2 is normal and Rub present
Respiratory: Respiratory effort normal and Other (Decreased breath sounds throughout.)
GI: Soft, Distention absent, Flat, Non tender and Normal bowel sounds
Neuro/Psych: AO x 3
Data Reviewed
-
Date of Service: April 15, 2024
Medical Decision Making: Reviewed Test Results, Independent Historian Assessment and Test Interpretation
EKG: Tracing Personally Visualized and interpreted and Report Reviewed by me
Echo: Report Reviewed by me
X-Ray/CT/US/MRI/NUC/PET: Image Personally Visualized and interpreted and Report Reviewed by me
Medical Tests (PFT, Pathology etc): Image Personally Visualized and interpreted and Report Reviewed by me
Labs: Labs Reviewed by me
Old Records: Reviewed
[2024-04-15 08:53] LABS: Glucose - Point of Care 122 mg/dl (70-99)
--- NOTE | 2024-04-15 09:00 | PTCARENOTE ---
Assumed care of patient at 0700. Pt is awake, alert, and oriented. Minimal complaints of midsternal pain, refused pain meds at this time. Pt remains SR with HR 80's-90's. Audible rub auscultated. BP 104/82 MAP 90. Epicardial V wire in place settings
VVI, 80/5/2. Currently pacing wire not connected to pacing box. Pulse oximetry 93% on room air. Encouraged continued use of IS. Mediastinal chest tubes x2 and left pleural chest tube in place, no sign of air leak or crepitus, drainage
serosanguineous. Pt tolerated clear liquid breakfast. Pt is due to void. Midsternal incision approximated and MARY. Right leg and left arm with low wraps in place. Right IJ cordis remains in place with KVO. Received pt on Cardizem gtt at 2.5mg/hr per
order, now off after first dose of Norvasc. Insulin gtt continues per glycemic protocol. Pt currently OOB in chair with call hawley within reach.
[2024-04-15] MEDS: PROTONIX 40 MG PO (09:03)
[2024-04-15] MEDS: PLAVIX 75 MG PO (09:03)
[2024-04-15] MEDS: MAGNESIUM OXIDE 500 MG PO ×2 (09:03→20:01)
[2024-04-15] MEDS: NORVASC 2.5 MG PO (09:03)
[2024-04-15] MEDS: SENOKOT-S 1 TABLET PO ×2 (09:03→20:03)
[2024-04-15] MEDS: PACERONE 200 MG PO ×3 (09:03→21:55)
[2024-04-15] MEDS: NEURONTIN 100 MG PO ×3 (09:03→21:55)
[2024-04-15] MEDS: BACTROBAN 2% OINTMENT 1 APPLIC NASAL ×2 (09:04→20:06)
[2024-04-15] MEDS: LOPRESSOR 12.5 MG PO ×2 (09:04→16:51)
[2024-04-15] MEDS: LOW STRENGTH ASPIRIN 81 MG PO (09:04)
[2024-04-15 10:32] LABS: Glucose - Point of Care 137 mg/dl (70-99)
--- NOTE | 2024-04-15 11:00 | PTCARENOTE ---
Pt ambulated with cardiac rehab, tolerated well. Left pleural chest tube d/c'd per order. Pt is now back OOB in chair.
--- NOTE | 2024-04-15 12:02 | CM ---
Reviewed chart. Met with Mr. Beverly to review discharge plans. He states he is feeling well. He states prior to admission he reside with his spouse and daughter(27) in a two story home with one step to enter. He states he has a full flight of
steps to get to bedroom/full bathroom. He states he has a powder room on the first floor. He states prior to admission he was independent with ambulation and adls. He states he does not have any DME in the home. He states he has a prescription
plan. He states his spouse will be home to assist in his care if needed. We reviewed a home visit by the Transitional Care Nurse. He is agreeable to home visit. Medical work-up in progress. The discharge plan is to return home with his spouse
and daughter with a home visit by the Transitional Care Nurse when medically stable.
[2024-04-15 12:07] LABS: Glucose - Point of Care 113 mg/dl (70-99)
[2024-04-15] MEDS: NSS IV (12:13)
--- NOTE | 2024-04-15 15:22 | W.PN.ANS.POP ---
Anesthesia Post Operative
- Anesthesia Post Op Note
Vital Signs Stable-See Nursing Note: Yes
Airway Patent: Yes
Adequate Pain Control: Yes
Change in Mental Status: No
Current Postoperative Nausea & Vomiting: No
Anesthesia Complications: No
General Anesthetic Recall: No
Unplanned Admission: No
Post Op Hydration Adequate: Yes
--- NOTE | 2024-04-15 15:59 | PTCARENOTE ---
Pt due to void, attempt made unable, bladder scan completed for 115mL. Pt ambulated around entire unit with RN assistance, tolerated well. Pt currently resting comfortably OOB in chair. V wire insulated. Insulin gtt d/c'd around 1230. Pt on no gtts
at this time. Currently ST with HR 102. CT FOUNDRY WORKER GENERAL aware, additional Lopressor 12.5mg ordered. BP 106/93 MAP 99. Pulse oximetry 95% on room air.
[2024-04-15] MEDS: LIPITOR 40 MG PO (17:42)
--- NOTE | 2024-04-15 19:30 | PTCARENOTE ---
Received pt from [facility]. Walking rounds completed. Pt assessment completed in bed. Pt is AAOx4. No neuro deficits noted. NSR to Sinus tachy on monitor. HR 105, B/P 132/85. Cardiac rub heard on auscultation. V-wires intact and insulated. Pulses
palpable. +1 edema upper and lower extremities.
Lungs clear, diminished in bases. C/T X2 mediastinal. draining serosanguineous fluid WNL. Pt voiding in urinal. Sternal Incision MARY, approximated with surgical glue present, L are incision VP INFORMATICS, surgical glue present. L Leg VP INFORMATICS, approximated,
surgical glue present. R groin dressing C/D/I/. R IJ cordis intact, no redness or edema noted. R 20g flushes. no redness or edema noted. Will continue to monitor pt needs.
[2024-04-15] MEDS: LOPRESSOR 25 MG PO (20:02)
[2024-04-15] MEDS: COLCHICINE 0.3 MG PO (20:03)
--- NOTE | 2024-04-15 23:00 | PTCARENOTE ---
VSS. Pt in NSR on monitor HR 90, B/P 108/77. POX 93% RA. Evening care provided. Will continue to monitor pt needs.
[2024-04-16] VITALS (15 sets, daily range): BP systolic 95–133; BP diastolic 69–95; PULSE 90; O2SAT 93–97; BMI 26.3
--- NOTE | 2024-04-16 03:27 | PTCARENOTE ---
VSS. Pt in NSR on monitor. HR 90, B/P 108/77. POX 94% RA. Pt able to void 250 ml, clear, dark, yellow urine. Pt resting in bed. Will continue to monitor pt needs.
[2024-04-16 04:27] LABS: Hematocrit 31.3 % (39.0-52.0); Hemoglobin 11.3 g/dL (13.0-18.0); Mean Corp Hgb Conc. 36.1 g/dL (33.0-37.0); Mean Corpuscular Hgb 30.9 pg (27.0-31.0); Mean Corpuscular Volume 85.5 fL (80.0-94.0); Mean Platelet Volume 10.2 fL (7.4-10.4); Platelet Count 133 10^3/uL (130-400); Red Blood Cell Count 3.66 10^6/uL (4.70-6.10); Red Cell Dist. Width 12.5 % (11.5-14.5); White Blood Cell Count 12.5 10^3/uL (4.8-10.8)
[2024-04-16 04:52] LABS: Blood Urea Nitrogen 22 mg/dl (9-20); Carbon Dioxide 28 mmol/L (22-30); Chloride 99 mmol/L (98-107); Estimated Creatinine Clearance 104 ml/min; Glucose 120 mg/dl (70-99); Magnesium 2.2 mg/dl (1.6-2.3); Potassium 4.8 mmol/L (3.5-5.1); Sodium 132 mmol/L (135-145); eGFR > 60.00
[2024-04-16] MEDS: TYLENOL 1000 MG PO ×3 (05:05→21:36)
[2024-04-16] MEDS: ZOFRAN 4 MG IV (07:47)
[2024-04-16] MEDS: ROXICODONE 5 MG PO (07:47)
[2024-04-16] MEDS: LOPRESSOR 25 MG PO (07:47)
--- NOTE | 2024-04-16 08:00 | PTCARENOTE ---
Assumed care of patient from assembler 1st shift RN. AAO x 3 sitting up in the chair. ST on monitor. Epicardial wire insulated. Room air 95%. Using IS to 1250. Chest tubes x 2 to - 20 cm suction. No air leak or crepitus noted. Abdomen soft and non
tender, does complain of intermittent nausea. Zofran administered. Bowel sounds hypoactive. Voiding as able. Pulses palpable. Trace edema appreciated. Plan for day discussed.
--- NOTE | 2024-04-16 08:20 | W.PN.CT ---
Today's Communication / Plan
-
-pod #2
-doing well, no issues overnight
-CT output: 2 meds 110/275 in 12/24 hrs
-weaned off O2 -pOx 96% on RA
-continue current meds
-encourage IS, OOB
Assessment / Plan
-
- NSTEMI/mv-CAD - s/p Multi arterial coronary artery bypass grafting x 4 (In situ RÍOS to LAD, Ao to L Radial to Large Diagonal, Ao to RSVG to OM1, Ao to RSVG to RPDA); Left atrial appendage exclusion [35 mm clip] on 04/14/[address] Fuentes, pod #2
- Intraop PARAMJIT: left ventricular ejection fraction preoperatively was mildly reduced 40-45% and there was evidence of apical hypokinesis. Following surgery, his apex although still hypokinetic was moving much better than preoperatively, EF 50-55%.
There was evidence of a previous infarct in the apical territory along the lateral side. His left atrial appendage verified to be free of any thrombus or debris preoperatively and found to be totally occlusive postoperatively.
- Ischemic cardiomyopathy
- Systolic chronic CHF
- NSTEMI
- Multivessel coronary disease with previous PCI and stenting to the LAD in 2004 and in-stent thrombosis in 2006
- Hypertension
- Hyperlipidemia
- Acute postop blood loss anemia - stable, no transfusion
- Acute postop atelectasis
- Suspected acute postop pericarditis/+rub
Discussed patient care with: Nursing and Care Team
Subjective
-
Date of Service: April 16, 2024
Objective Data
-
Lab Results
04/16/24 04:06
04/16/24 04:06
PT 17.2 Sec (11.4-14.6) H 04/14/24 12:04
INR 1.38 04/14/24 12:04
APTT 28.8 Sec (23.4-35.0) 04/14/24 12:04
Vital Signs
Vital Signs
Temp Pulse Resp BP Pulse Ox
97.8 F 107 16 115/71 96
04/16/24 00:05 04/16/24 05:15 04/16/24 00:05 04/16/24 07:47 04/16/24 05:03
CT Intake/Output/Weight
04/15/24 04/16/24 04/16/24
18:59 06:59 18:59
Intake Total 138.0 / 238.0 100 / 238.0
Output Total 335 / 920 585 / 920
Balance -197.0 / -682.0 -485 / -682.0
SaO2: 96
Physical Exam
-
General: Awake and AOx3
Cardiovascular: Regular rate & rhythm, No Murmurs and Rub
Respiratory: Clear and Decreased Breath Sounds
Sternum: Stable
Incision: Clean, Dry and Intact
Extremities: Edema +1
Data Reviewed
-
Lab Results: Results Reviewed
Medications: Active Meds Reviewed
Chest X-Ray: Report Reviewed and Image Reviewed
ECG: Report Reviewed and Image Reviewed
[2024-04-16] MEDS: SENOKOT-S 1 TABLET PO ×2 (09:10→19:47)
[2024-04-16] MEDS: NEURONTIN 100 MG PO ×3 (09:10→21:36)
[2024-04-16] MEDS: PROTONIX 40 MG PO (09:10)
[2024-04-16] MEDS: COLCHICINE 0.3 MG PO ×2 (09:10→19:44)
[2024-04-16] MEDS: PLAVIX 75 MG PO (09:10)
[2024-04-16] MEDS: MAGNESIUM OXIDE PO (09:11)
[2024-04-16] MEDS: BACTROBAN 2% OINTMENT 1 APPLIC NASAL ×2 (09:11→19:43)
[2024-04-16] MEDS: LASIX 20 MG IV (09:11)
[2024-04-16] MEDS: NORVASC 2.5 MG PO (09:11)
[2024-04-16] MEDS: PACERONE 200 MG PO ×3 (09:11→21:37)
--- NOTE | 2024-04-16 10:06 | W.PN.CD ---
Today's Communication / Plan
-
-Starting Metoprolol, Amiodarone, Colchicine/ASA and plavix
- Amlodipine started.
Impression / Plan
-
Background: 64-year-old gentleman with a past medical history of CAD status post PCI in 2004 and 2006 of the LAD, mild the reduced ejection fraction with an EF of 50%, hypertension and hyperlipidemia presents for evaluation of abdominal and chest
pain in the setting of a high risk stress test on 04/07/2024, found to have multivessel CAD.
#CAD with ACS
-Chronic, progressive.
-Cath shows MVD, atretic LAD with severe pLAD ISR, highly tortuous pRCA.
-S/P CABG x4 (RÍOS to LAD, LRA to D1, SVG to OM1, SVG to RPDA) on 04/14/[address] Fuentes.
-S/P LAAE (#35 Atriclip) on 04/14/[address] Fuentes.
-Expectant post operative management.
-Off pressors.
-CCB for LRA graft. It will take amlodipine several days to have its full effect.
-Encourage incentive spirometry.
-Ambulate when appropriate.
-On aspirin/clopidogrel/Metoporlol
-On Colchicine and Amiodarone.
-Chest tube/pain management per CT surgery.
#Pericarditis
-New diagnosis, post operative.
-Rub on exam with BENNY + [place] depression.
-Treatment with high dose aspirin taper and colchicine 0.6 mg BID x 3 months (no taper).
-ASA 975 mg TID x 3 days, then
-ASA 650 mg TID x 3 days, then
-ASA 325 mg TID x 3 days, then
-ASA 325 mg BID x 3 days, then
-ASA 325 mg daily x 3 days, then
-ASA 81 mg daily indefinitely.
#Mild ischemic cardiomyopathy
-New diagnosis.
-LVEF reportedly improved on PARAMJIT post CABG (45% --> 55%).
-Wall motion abnormalities noted - will assess post CABG with perfusion restored.
-Restart GDMT when post-op hemodynamics will permit. On Metoprolol and AMio now.
#HLD
-Chronic.
-Aggressive lipid management given premature CAD.
-Continue atorvastatin 40 mg daily.
-Goal LDL < 55.
Subjective/Interval History:
CABG post op day # 2
Pericarditis.
DATA:
Intraoperative PARAMJIT, 04/14/2024:
CONCLUSIONS
Mild left ventricular systolic dysfunction with multiple regional wall motion
abnormalities, especially anteroseptal septal [place]. EF 40 to 45%.
Normal right ventricular size and function.
The aorta has atheroma less than 5 mm and mild calcifications.
Trace MR. Trace TR.
POST OPERATIVE FINDINGS
Status post CABG x 4, the left ventricle are most more vigorously saurabh,
improved apex contractility as well as anteroseptal and septal [place]. EF
estimated 50 to 55%.
Normal right ventricular size and function.
Status post left atrial appendage exclusion, the clip is well-seated, no flow
seen through the left atrial appendage remnant.
Trivial to mild MR. Trace TR. The rest of the study is unchanged.
Cath:04/08/24
HEMODYNAMIC DATA
Weight (kg): 86.6
AO (s/d/x, mmHg): 133/83/105
LV (s/x mmHg): 135/10 (A wave to 22)
CONCLUSIONS
1. Right dominant circulation with a nonocclusive, 40% lesion of the ostial left main, a critical, 90% in-stent restenosis lesion in the proximal LAD stent leading into a large diagonal, followed by chronic total occlusion of the stent into the
true LAD, a hazy, 50-60% lesion in the origin of OM1 and a 70-80% lesion in the mid RCA after severe, hairpin turn tortuosity in the proximal RCA. The distal diagonal is collateralized by a large epicardial collateral from the terminal left
posterolateral branch. The mid and distal LAD are supplied by faint collaterals from the distal RCA.
2. Normal filling pressures (LVEDP = 10 mmHg at 86.6 kg) with evidence of diastolic dysfunction (A wave to 22 mmHg).
3. Abnormal vessel loop versus stenosis in the right radial artery, precluding cardiac catheterization from this approach.
TTE 04/08/24:
CONCLUSIONS
Left ventricular ejection fraction is 45-50%. Mid to distal anteroseptal, mid
anteroseptal, apical septal, and apical severe hypokinesis.
Normal right ventricular size and function.
No significant valvular disease.
No significant change since the prior study of 07/27/22.
TTE 07/27/22:
CONCLUSIONS
LV ejection fraction is is approximately 50%, by visual assessment. Mid to
distal anteroseptal, mid anteroseptal, apical septal, and apical severe
hypokinesis.
Normal right ventricular size and function.
No significant valvular disease.
Compared to previous echo on 01/03/2018, there is a slight improvement in LVEF
(previously 45%).
Physical Exam
Vital Signs/Labs
Vital Signs
Temp Pulse Resp BP Pulse Ox
97.6 F 103 16 115/71 96
04/16/24 08:00 04/16/24 08:15 04/16/24 08:00 04/16/24 07:47 04/16/24 08:22
04/15/24 04/16/24 04/17/24
06:59 06:59 06:59
Actual Weight 88.8 kg 90.4 kg
04/16/24 04:06
04/16/24 04:06
PT 17.2 Sec (11.4-14.6) H 04/14/24 12:04
INR 1.38 04/14/24 12:04
APTT 28.8 Sec (23.4-35.0) 04/14/24 12:04
Magnesium 2.2 mg/dl (1.6-2.3) 04/16/24 04:06
Triglycerides 50 mg/dl (10-149) 04/08/24 06:41
LDL Cholesterol, Calc 40 mg/dl 04/08/24 06:41
VLDL Cholesterol, Calc 10 mg/dl (0-30) 04/08/24 06:41
HDL Cholesterol 41 mg/dl 04/08/24 06:41
Physical Exam
Constitutional: No acute distress and Comfortable
EENT: Anicteric and Moist mucous membranes
Cardiovascular: Rhythm & rate is regular, Pedal edema is absent and JVD pressure is normal
Respiratory: Respiratory effort normal, Wheeze Absent and Crackles Absent
GI: Soft, Distention absent, Non tender and Normal bowel sounds
Neuro/Psych: Alert, Oriented and AO x 3
Data Reviewed
-
Date of Service: April 16, 2024
Medical Decision Making: Reviewed Test Results, Test Interpretation and Review of Case with other Provider
EKG: Tracing Personally Visualized and interpreted
Echo: Report Reviewed by me
Labs: Labs Reviewed by me
Old Records: Reviewed
[2024-04-16] MEDS: LOPRESSOR 12.5 MG PO (10:36)
--- NOTE | 2024-04-16 11:57 | PTCARENOTE ---
Epicardial wire removed by CT WAFER SLICER, bedrest x 1 hour, vs Q 15 minutes per protocol. Afterward chest tubes removed. Pt tolerated w/o complaint. Assist x 1 oob to chair. VSS. Assessment unchanged from prior.
--- NOTE | 2024-04-16 12:16 | CM ---
Reviewed chart. Met with and Mrs. Beverly to review discharge plans. He states he is feeling well. Prior to admission he resides with his spouse and daughter in a two story home with one step to enter. He has a full flight of steps to get to
bedroom/full bathroom. He has a powder room on the first floor. Prior to admission he was independent with ambulation and adls. He ambulated 480 feet today. He does not have any DME in the home. He has a prescription plan. His spouse will be home
to assist in his care if needed. Medical work-up in progress. The discharge plan is to return home with hie spouse and a home visit by the Transitional Care Nurse when medically stable.
[2024-04-16] MEDS: NSS IV (16:05)
--- NOTE | 2024-04-16 16:40 | PTCARENOTE ---
Ambulated entire loop around unit with RN. Tolerated w/o issue. VSS. Denies complaint
[2024-04-16] MEDS: LIPITOR 40 MG PO (18:09)
[2024-04-16] MEDS: LOPRESSOR 37.5 MG PO (19:46)
[2024-04-16] MEDS: MAGNESIUM OXIDE 500 MG PO (19:48)
--- NOTE | 2024-04-16 20:20 | PTCARENOTE ---
Received pt from [facility]. Walking rounds completed. Pt assessment completed in bed. Pt is AAOx4, no neuro deficits noted. NSR on monitor HR 85, B/P 124/87. + Cardiac rub. Pulses palpable, generalized edema. Lungs clear, diminished in bases. POX 97%
I/S 1250. NBS, abdomen soft, non-tender to touch. Pt voiding in bathroom, clear, yellow urine. Sternal incision approximated, surgical glue present. C/T dressing C/D/I. L radial incision approximated, surgical glue present. R PVA intact, flushes, R
IJ cordis intact, flushes. All sites stable. No redness or edema noted. Discussed plan of care with pt. Pt agrees with plan. Will continue to monitor pt needs.
--- NOTE | 2024-04-16 23:30 | PTCARENOTE ---
VSS. Sinus rhythm on monitor. HR 82, B/P 95/69. Evening care provided. Pt ambulated to bathroom x2. Pt resting in bed. Will continue to monitor pt. needs.
[2024-04-17] VITALS (9 sets, daily range): BP systolic 104–123; BP diastolic 69–88; PULSE 85; O2SAT 84–100; BMI 25.7
--- NOTE | 2024-04-17 03:58 | PTCARENOTE ---
VSS. Pt NSR on monitor. HR 86, B/P 106/70. Morning labs obtained and sent. Am care provided. Pt resting in bed. Will continue to monitor pt needs.
[2024-04-17 04:12] LABS: Hematocrit 29.4 % (39.0-52.0); Hemoglobin 10.5 g/dL (13.0-18.0); Mean Corp Hgb Conc. 35.7 g/dL (33.0-37.0); Mean Corpuscular Hgb 30.7 pg (27.0-31.0); Mean Platelet Volume 10.2 fL (7.4-10.4); Platelet Count 138 10^3/uL (130-400); Red Blood Cell Count 3.42 10^6/uL (4.70-6.10); Red Cell Dist. Width 12.6 % (11.5-14.5); White Blood Cell Count 9.2 10^3/uL (4.8-10.8)
[2024-04-17 04:26] LABS: Blood Urea Nitrogen 19 mg/dl (9-20); Calcium 8.4 mg/dl (8.4-10.2); Carbon Dioxide 31 mmol/L (22-30); Chloride 98 mmol/L (98-107); Estimated Creatinine Clearance 92 ml/min; Glucose 104 mg/dl (70-99); Magnesium 2.3 mg/dl (1.6-2.3); Potassium 4.1 mmol/L (3.5-5.1); Sodium 134 mmol/L (135-145); eGFR > 60.00
[2024-04-17] MEDS: TYLENOL 1000 MG PO ×2 (05:22→15:43)
--- NOTE | 2024-04-17 07:14 | W.PN.CD ---
Today's Communication / Plan
-
Furosemide 20 mg IV.
Start dapagliflozin 10 mg daily.
Start sacubitril-valsartan tomorrow if hemodynamics/renal function permit.
Ambulate.
Incentive spirometry.
Impression / Plan
-
Background: 64-year-old gentleman with a past medical history of CAD status post PCI in 2004 and 2006 of the LAD, mild the reduced ejection fraction with an EF of 50%, hypertension and hyperlipidemia presents for evaluation of abdominal and chest
pain in the setting of a high risk stress test on 04/07/2024, found to have multivessel CAD.
#CAD with ACS
-Chronic, progressive.
-Cath shows MVD, atretic LAD with severe pLAD ISR, highly tortuous pRCA.
-S/P CABG x4 (RÍOS to LAD, LRA to D1, SVG to OM1, SVG to RPDA) on 04/14/[address] Fuentes.
-S/P LAAE (#35 Atriclip) on 04/14/[address] Fuentes.
-Expectant post operative management.
-Off pressors.
-CCB for LRA graft. It will take amlodipine several days to have its full effect.
-Encourage incentive spirometry.
-Ambulate when appropriate.
-On amiodarone/aspirin/clopidogrel/Metoporlol .
-Chest tube/pain management per CT surgery.
-Redose furosemide x1 and monitor.
#Pericarditis
-New diagnosis, post operative.
-Rub on exam with BENNY + [place] depression.
-Treatment colchicine 0.3 mg BID (while on amiodarone) x 3 months (no taper).
-Discussed with Dr. Fuentes. Symptoms have largely resolved. We will proceed with aspirin 81 mg daily, but if he develops recurrent pericarditis symptoms, we will start a high dose aspirin taper as follows:
-ASA 975 mg TID x 3 days, then
-ASA 650 mg TID x 3 days, then
-ASA 325 mg TID x 3 days, then
-ASA 325 mg BID x 3 days, then
-ASA 325 mg daily x 3 days, then
-ASA 81 mg daily indefinitely.
#Mild ischemic cardiomyopathy
-New diagnosis.
-LVEF reportedly improved on PARAMJIT post CABG (45% --> 55%).
-Wall motion abnormalities noted - will assess post CABG with perfusion restored.
-Restart GDMT when post-op hemodynamics will permit.
-Currently on Metoprolol.
-Start dapagliflozin 10 mg daily.
-Sacubitril-valsartan tomorrow.
#HLD
-Chronic.
-Aggressive lipid management given premature CAD.
-Continue atorvastatin 40 mg daily.
-Goal LDL < 55.
Subjective/Interval History:
Received furosemide 20mg yesterday.
Weight down 2.2 kg.
Now on room air.
DATA:
Intraoperative PARAMJIT, 04/14/2024:
CONCLUSIONS
Mild left ventricular systolic dysfunction with multiple regional wall motion
abnormalities, especially anteroseptal septal [place]. EF 40 to 45%.
Normal right ventricular size and function.
The aorta has atheroma less than 5 mm and mild calcifications.
Trace MR. Trace TR.
POST OPERATIVE FINDINGS
Status post CABG x 4, the left ventricle are most more vigorously saurabh,
improved apex contractility as well as anteroseptal and septal [place]. EF
estimated 50 to 55%.
Normal right ventricular size and function.
Status post left atrial appendage exclusion, the clip is well-seated, no flow
seen through the left atrial appendage remnant.
Trivial to mild MR. Trace TR. The rest of the study is unchanged.
Cath:04/08/24
HEMODYNAMIC DATA
Weight (kg): 86.6
AO (s/d/x, mmHg): 133/83/105
LV (s/x mmHg): 135/10 (A wave to 22)
CONCLUSIONS
1. Right dominant circulation with a nonocclusive, 40% lesion of the ostial left main, a critical, 90% in-stent restenosis lesion in the proximal LAD stent leading into a large diagonal, followed by chronic total occlusion of the stent into the
true LAD, a hazy, 50-60% lesion in the origin of OM1 and a 70-80% lesion in the mid RCA after severe, hairpin turn tortuosity in the proximal RCA. The distal diagonal is collateralized by a large epicardial collateral from the terminal left
posterolateral branch. The mid and distal LAD are supplied by faint collaterals from the distal RCA.
2. Normal filling pressures (LVEDP = 10 mmHg at 86.6 kg) with evidence of diastolic dysfunction (A wave to 22 mmHg).
3. Abnormal vessel loop versus stenosis in the right radial artery, precluding cardiac catheterization from this approach.
TTE 04/08/24:
CONCLUSIONS
Left ventricular ejection fraction is 45-50%. Mid to distal anteroseptal, mid
anteroseptal, apical septal, and apical severe hypokinesis.
Normal right ventricular size and function.
No significant valvular disease.
No significant change since the prior study of 07/27/22.
TTE 07/27/22:
CONCLUSIONS
LV ejection fraction is is approximately 50%, by visual assessment. Mid to
distal anteroseptal, mid anteroseptal, apical septal, and apical severe
hypokinesis.
Normal right ventricular size and function.
No significant valvular disease.
Compared to previous echo on 01/03/2018, there is a slight improvement in LVEF
(previously 45%).
Physical Exam
Vital Signs/Labs
Vital Signs
Temp Pulse Resp BP Pulse Ox
37.1 C 89 16 106/70 94
04/17/24 03:58 04/17/24 03:55 04/17/24 03:58 04/17/24 03:55 04/17/24 03:58
04/15/24 04/16/24 04/17/24
11:59 11:59 11:59
Actual Weight 88.8 kg 90.4 kg 88.2 kg
04/17/24 03:53
04/17/24 03:53
PT 17.2 Sec (11.4-14.6) H 04/14/24 12:04
INR 1.38 04/14/24 12:04
APTT 28.8 Sec (23.4-35.0) 04/14/24 12:04
Magnesium 2.3 mg/dl (1.6-2.3) 04/17/24 03:53
Triglycerides 50 mg/dl (10-149) 04/08/24 06:41
LDL Cholesterol, Calc 40 mg/dl 04/08/24 06:41
VLDL Cholesterol, Calc 10 mg/dl (0-30) 04/08/24 06:41
HDL Cholesterol 41 mg/dl 04/08/24 06:41
Physical Exam
Constitutional: No acute distress and Comfortable
EENT: Anicteric and Moist mucous membranes
Cardiovascular: Rhythm & rate is regular, Pedal edema is absent, S1S2 is normal and Rub present
Respiratory: Respiratory effort normal, Lungs clear to auscul., Wheeze Absent, Crackles Absent and Rhonchi Absent
GI: Soft, Distention absent, Flat, Non tender and Normal bowel sounds
Neuro/Psych: AO x 3
Data Reviewed
-
Date of Service: April 17, 2024
Medical Decision Making: Reviewed Test Results, Independent Historian Assessment and Test Interpretation
EKG: Tracing Personally Visualized and interpreted and Report Reviewed by me
Echo: Report Reviewed by me
X-Ray/CT/US/MRI/NUC/PET: Image Personally Visualized and interpreted and Report Reviewed by me
Medical Tests (PFT, Pathology etc): Image Personally Visualized and interpreted and Report Reviewed by me
Labs: Labs Reviewed by me
Old Records: Reviewed
--- NOTE | 2024-04-17 07:36 | W.PN.CT ---
Today's Communication / Plan
-
-pod #3
-no issues overnight
-continue current meds (ASA, Plavix, Norvasc for radial graft, Lipitor, Amio, Colchicine, Lopressor, Protonix)
-encourage IS, OOB, ambulate
Assessment / Plan
-
- NSTEMI/mv-CAD - s/p Multi arterial coronary artery bypass grafting x 4 (In situ RÍOS to LAD, Ao to L Radial to Large Diagonal, Ao to RSVG to OM1, Ao to RSVG to RPDA); Left atrial appendage exclusion [35 mm clip] on 04/14/[address] Fuentes, pod #3
- Intraop PARAMJIT: left ventricular ejection fraction preoperatively was mildly reduced 40-45% and there was evidence of apical hypokinesis. Following surgery, his apex although still hypokinetic was moving much better than preoperatively, EF 50-55%.
There was evidence of a previous infarct in the apical territory along the lateral side. His left atrial appendage verified to be free of any thrombus or debris preoperatively and found to be totally occlusive postoperatively.
- Ischemic cardiomyopathy
- Systolic chronic CHF
- NSTEMI
- Multivessel coronary disease with previous PCI and stenting to the LAD in 2004 and in-stent thrombosis in 2006
- Hypertension
- Hyperlipidemia
- Acute postop blood loss anemia - stable, no transfusion
- Acute postop atelectasis
- Suspected acute postop pericarditis/+rub
Discussed patient care with: Nursing and Care Team
Subjective
-
Date of Service: April 17, 2024
Objective Data
-
Lab Results
04/17/24 03:53
04/17/24 03:53
PT 17.2 Sec (11.4-14.6) H 04/14/24 12:04
INR 1.38 04/14/24 12:04
APTT 28.8 Sec (23.4-35.0) 04/14/24 12:04
Vital Signs
Vital Signs
Temp Pulse Resp BP Pulse Ox
98.7 F 89 16 106/70 94
04/17/24 03:58 04/17/24 03:55 04/17/24 03:58 04/17/24 03:55 04/17/24 03:[address]
CT Intake/Output/Weight
04/16/24 04/17/24 04/17/24
18:59 06:59 18:59
Intake Total 640 / 640
Output Total 60 / 660 600 / 660
Balance 580 / -20 -600 / -20
SaO2: 94
Physical Exam
-
General: Awake and AOx3
Cardiovascular: Regular rate & rhythm, No Murmurs and Rub
Respiratory: Clear and Decreased Breath Sounds
Sternum: Stable
Incision: Clean, Dry and Intact
Extremities: Edema trace b/l
Data Reviewed
-
Lab Results: Results Reviewed
Medications: Active Meds Reviewed
Chest X-Ray: Report Reviewed and Image Reviewed
ECG: Report Reviewed and Image Reviewed
--- NOTE | 2024-04-17 08:00 | PTCARENOTE ---
Assumed care of patient from night time babysitter RN. AAo x 3, ambulating at [place] in room. Denies pain. NSR on monitor. Room air 93%. Using IS to 1250. Denies cough or sputum. Abdomen soft and non tender, appetite good. Voiding w/o issue. General
plus 1 edema appreciated. Pulses palpable. Plan for day discussed.
[2024-04-17] MEDS: PLAVIX 75 MG PO (08:24)
[2024-04-17] MEDS: LOPRESSOR 37.5 MG PO (08:24)
[2024-04-17] MEDS: SENOKOT-S 1 TABLET PO ×2 (08:27→20:31)
[2024-04-17] MEDS: NEURONTIN 100 MG PO ×3 (08:27→21:55)
[2024-04-17] MEDS: PROTONIX 40 MG PO (08:27)
[2024-04-17] MEDS: MAGNESIUM OXIDE 500 MG PO ×2 (08:27→20:32)
[2024-04-17] MEDS: KCL 40 MEQ PO (08:28)
[2024-04-17] MEDS: NORVASC 2.5 MG PO (08:28)
[2024-04-17] MEDS: COLCHICINE 0.3 MG PO ×2 (08:28→20:32)
[2024-04-17] MEDS: BACTROBAN 2% OINTMENT 1 APPLIC NASAL ×2 (08:29→20:34)
[2024-04-17] MEDS: LASIX 40 MG IV (08:29)
[2024-04-17] MEDS: PACERONE 200 MG PO ×3 (09:30→21:55)
[2024-04-17] MEDS: FARXIGA 10 MG PO (09:48)
[2024-04-17] MEDS: LOPRESSOR 12.5 MG PO (09:48)
[2024-04-17] MEDS: NSS IV (09:49)
--- NOTE | 2024-04-17 11:07 | PTCARENOTE ---
Rt IJ cordis removed, Hemostasis achieved, Pt tolerated No complaints.
--- NOTE | 2024-04-17 12:07 | CM ---
Addendum entered by Cynthia Jasmine 04/17/24 15:31:
Telephone call to his insurance to check on co-pay for Farxiga 10 mg po daily. His co-pay would be $20.00 a month. He has a commercial plan so he can use the free coupon. Placed the free coupon in his red discharge folder.
Original Note:
Reviewed chart. Met with Mr. Beverly to review discharge plans. He states he is feeling well and maybe able to go home soon. We reviewed a home visit by the Transitional Care Nurse. He is agreeable to a home visit. He ambulated in the hallway
and did stairs today. Prior to admission he resides with his spouse and daughter in a two story home with one step to enter. He has a full flight of steps to get to bedroom/full bathroom. He has a powder room on the first floor. Prior to
admission he was independent with ambulation and adls. He does not have any DME in the home He has a prescription plan. His spouse will be home to assist in his care if needed. Medical work-up in progress. The discharge plan is to return home
with spouse and daughter with a home visit by the Transitional Care Nurse when medically stable.
--- NOTE | 2024-04-17 12:22 | PTCARENOTE ---
VSS. Ambulating in room w/o complaint. Assessment unchanged from prior
[2024-04-17] MEDS: TYLENOL PO (14:09)
[2024-04-17] MEDS: LIPITOR 40 MG PO (17:05)
--- NOTE | 2024-04-17 19:30 | PTCARENOTE ---
Received pt from [facility]. Walking rounds completed. Pt assessment completed in bed. Pt is AAOx4, no neuro deficits noted. NSR on monitor HR 82, B/P 109-82. + Cardiac rub. Pulses palpable, generalized edema. Lungs clear, diminished in bases. POX 95%
I/S 1250. NBS, abdomen soft, non-tender to touch. Pt voiding in bathroom, clear, yellow urine. Sternal incision approximated, surgical glue present. 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 L radial incision approximated, surgical glue present. R PVA intact,
flushes. All sites stable. No redness or edema noted. Discussed plan of care with pt. Pt agrees with plan. Will continue to monitor pt needs.
[2024-04-17] MEDS: ENTRESTO 24 MG/26 MG 1 TAB PO (20:31)
[2024-04-17] MEDS: TOPROL XL 50 MG PO (20:33)
--- NOTE | 2024-04-17 23:00 | PTCARENOTE ---
VSS. NSR on monitor HR 82, B/P 108/73. Evening care provided. Pt resting in bed. Will continue to monitor pt needs.
[2024-04-18 00:03] VITALS: BP 120/88
[2024-04-18] MEDS: TYLENOL 650 MG PO (01:20)
--- NOTE | 2024-04-18 04:12 | W.PN.CT ---
Today's Communication / Plan
-
Plan:
-No major issues overnight. Hemodynamically and neurologically intact
-Cont. GDMT (Farxiga, Toprol XL, Entresto), along with other meds
-Cont. current meds (ASA, Plavix, Norvasc for radial graft, Lipitor, Amio, Colchicine, Lopressor, Protonix)
-F/U 2-view cxr
-Encourage use of IS
-OOB into chair/Ambulate
-Home today
Assessment / Plan
-
- NSTEMI/mv-CAD - s/p Multi arterial coronary artery bypass grafting x 4 (In situ RÍOS to LAD, Ao to L Radial to Large Diagonal, Ao to RSVG to OM1, Ao to RSVG to RPDA); Left atrial appendage exclusion [35 mm clip] on 04/14/[address] Fuentes, pod #4
- Intraop PARAMJIT: left ventricular ejection fraction preoperatively was mildly reduced 40-45% and there was evidence of apical hypokinesis. Following surgery, his apex although still hypokinetic was moving much better than preoperatively, EF 50-55%.
There was evidence of a previous infarct in the apical territory along the lateral side. His left atrial appendage verified to be free of any thrombus or debris preoperatively and found to be totally occlusive postoperatively.
- Ischemic cardiomyopathy
- Systolic chronic CHF
- NSTEMI
- Multivessel coronary disease with previous PCI and stenting to the LAD in 2004 and in-stent thrombosis in 2006
- Hypertension
- Hyperlipidemia
- Acute postop blood loss anemia - stable, no transfusion
- Acute postop atelectasis
- Suspected acute postop pericarditis/+rub
Discussed patient care with: Cardiology, Nursing, Respiratory Therapy, Pharmacy and Care Team
Subjective
Procedure
s/p Multi arterial coronary artery bypass grafting x 4 (In situ RÍOS to LAD, Ao to L Radial to Large Diagonal, Ao to RSVG to OM1, Ao to RSVG to RPDA); Left atrial appendage exclusion [35 mm clip] on 04/14/24
-
Date of Service: April 18, 2024
Pt c/o mild incisional pain, otherwise feels well. Ambulating halls without difficulty
Objective Data
-
PT 17.2 Sec (11.4-14.6) H 04/14/24 12:04
INR 1.38 04/14/24 12:04
APTT 28.8 Sec (23.4-35.0) 04/14/24 12:04
Vital Signs
Vital Signs
Temp Pulse Resp BP Pulse Ox
98.7 F 81 16 120/88 95
04/18/24 00:06 04/18/24 02:00 04/18/24 00:06 04/18/24 00:03 04/18/24 00:06
CT Intake/Output/Weight
04/17/24 04/17/24 04/18/24
06:59 18:59 06:59
Intake Total 720 / 720
Output Total 600 / 660 250 / 250
Balance -600 / -20 720 / 470 -250 / 470
SaO2: 95 (RA)
Physical Exam
-
General: Awake, Oriented and AOx3
Cardiovascular: Regular rate & rhythm, No Murmurs, No Rub and No Gallop
Respiratory: Decreased Breath Sounds (at bases, otherwise clear)
Sternum: Stable
Incision: Clean, Dry, Intact and Dressing Intact
Extremities: No Edema
Data Reviewed
-
Lab Results: Results Reviewed
Medications: Active Meds Reviewed
Chest X-Ray: Report Reviewed and Image Reviewed
ECG: Report Reviewed and Image Reviewed
[2024-04-18 04:23] VITALS: BP 101/68
[2024-04-18 04:39] LABS: Ionized Calcium 1.24 mMOL/L (1.15-1.33)
[2024-04-18 04:56] VITALS: BMI 25.2
--- NOTE | 2024-04-18 04:58 | PTCARENOTE ---
VSS. Pt in NSR on monitor. HR 74, B/P 101/68. Morning labs obtained and sent. Wt obtained. Pt OOB to chair. Will continue to monitor pt needs.
[2024-04-18 05:09] LABS: Hematocrit 30.5 % (39.0-52.0); Hemoglobin 10.8 g/dL (13.0-18.0); Mean Corp Hgb Conc. 35.4 g/dL (33.0-37.0); Mean Corpuscular Hgb 30.5 pg (27.0-31.0); Mean Corpuscular Volume 86.2 fL (80.0-94.0); Mean Platelet Volume 10.3 fL (7.4-10.4); Platelet Count 169 10^3/uL (130-400); Red Blood Cell Count 3.54 10^6/uL (4.70-6.10); Red Cell Dist. Width 12.4 % (11.5-14.5); White Blood Cell Count 8.4 10^3/uL (4.8-10.8)
[2024-04-18 05:34] LABS: Blood Urea Nitrogen 18 mg/dl (9-20); Calcium 8.6 mg/dl (8.4-10.2); Carbon Dioxide 30 mmol/L (22-30); Chloride 99 mmol/L (98-107); Estimated Creatinine Clearance 83 ml/min; Glucose 95 mg/dl (70-99); Magnesium 2.4 mg/dl (1.6-2.3); Potassium 4.6 mmol/L (3.5-5.1); Sodium 135 mmol/L (135-145); eGFR > 60.00
[2024-04-18] MEDS: TYLENOL 1000 MG PO (06:01)
[2024-04-18 08:35] VITALS: BP 110/70
--- NOTE | 2024-04-18 08:40 | PTCARENOTE ---
Received patient for 7a-7p shift. Pt AAOx3, without complaints. 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 Medications administered as ordered. Patient for 2 view cxr and possible discharge today. Patient denies pain at this time. Instructed patient to call for
assistance prior to ambulation. Patient verbalized understanding. Will continue to monitor.
--- NOTE | 2024-04-18 08:45 | W.PN.CD ---
Today's Communication / Plan
-
Tolerating GDMT.
Colchicine and aspirin 81 mg daily for pericarditis.
If pericarditis symptoms worsen, start high dose aspirin taper in addition to colchicine.
Stable for outpatient follow up.
Agree with discharge.
Impression / Plan
-
Background: 64-year-old gentleman with a past medical history of CAD status post PCI in 2004 and 2006 of the LAD, mild the reduced ejection fraction with an EF of 50%, hypertension and hyperlipidemia presents for evaluation of abdominal and chest
pain in the setting of a high risk stress test on 04/07/2024, found to have multivessel CAD.
#CAD with ACS
-Chronic, progressive.
-Cath shows MVD, atretic LAD with severe pLAD ISR, highly tortuous pRCA.
-S/P CABG x4 (RÍOS to LAD, LRA to D1, SVG to OM1, SVG to RPDA) on 04/14/[address] Fuentes.
-S/P LAAE (#35 [place]) on 04/14/[address] Fuentes.
-Expectant post operative management.
-Off pressors.
-CCB for LRA graft. It will take amlodipine several days to have its full effect.
-Encourage continued incentive spirometry/ambulation.
-Continue amiodarone/aspirin/clopidogrel/Metoprolol.
#Pericarditis
-New diagnosis, post operative.
-Rub on exam with BENNY + [place] depression.
-Treatment colchicine 0.3 mg BID (while on amiodarone) x 3 months (no taper).
-Discussed with Dr. Fuentes. Symptoms have largely resolved. We will proceed with aspirin 81 mg daily, but if he develops recurrent pericarditis symptoms, we will start a high dose aspirin taper as follows:
-ASA 975 mg TID x 3 days, then
-ASA 650 mg TID x 3 days, then
-ASA 325 mg TID x 3 days, then
-ASA 325 mg BID x 3 days, then
-ASA 325 mg daily x 3 days, then
-ASA 81 mg daily indefinitely.
#Mild ischemic cardiomyopathy
-New diagnosis.
-LVEF reportedly improved on PARAMJIT post CABG (45% --> 55%).
-Wall motion abnormalities noted - will assess post CABG with perfusion restored.
-Continue metoprolol, dapagliflozin and sacubatril-valsartan.
#HLD
-Chronic.
-Aggressive lipid management given premature CAD.
-Continue atorvastatin 40 mg daily.
-Goal LDL < 55.
Subjective/Interval History:
Weight down an additional 1.7 kg.
Tolerating GDMT.
CT surgery planning discharge.
DATA:
Intraoperative PARAMJIT, 04/14/2024:
CONCLUSIONS
Mild left ventricular systolic dysfunction with multiple regional wall motion
abnormalities, especially anteroseptal septal [place]. EF 40 to 45%.
Normal right ventricular size and function.
The aorta has atheroma less than 5 mm and mild calcifications.
Trace MR. Trace TR.
POST OPERATIVE FINDINGS
Status post CABG x 4, the left ventricle are most more vigorously saurabh,
improved apex contractility as well as anteroseptal and septal [place]. EF
estimated 50 to 55%.
Normal right ventricular size and function.
Status post left atrial appendage exclusion, the clip is well-seated, no flow
seen through the left atrial appendage remnant.
Trivial to mild MR. Trace TR. The rest of the study is unchanged.
Cath:04/08/24
HEMODYNAMIC DATA
Weight (kg): 86.6
AO (s/d/x, mmHg): 133/83/105
LV (s/x mmHg): 135/10 (A wave to 22)
CONCLUSIONS
1. Right dominant circulation with a nonocclusive, 40% lesion of the ostial left main, a critical, 90% in-stent restenosis lesion in the proximal LAD stent leading into a large diagonal, followed by chronic total occlusion of the stent into the
true LAD, a hazy, 50-60% lesion in the origin of OM1 and a 70-80% lesion in the mid RCA after severe, hairpin turn tortuosity in the proximal RCA. The distal diagonal is collateralized by a large epicardial collateral from the terminal left
posterolateral branch. The mid and distal LAD are supplied by faint collaterals from the distal RCA.
2. Normal filling pressures (LVEDP = 10 mmHg at 86.6 kg) with evidence of diastolic dysfunction (A wave to 22 mmHg).
3. Abnormal vessel loop versus stenosis in the right radial artery, precluding cardiac catheterization from this approach.
TTE 04/08/24:
CONCLUSIONS
Left ventricular ejection fraction is 45-50%. Mid to distal anteroseptal, mid
anteroseptal, apical septal, and apical severe hypokinesis.
Normal right ventricular size and function.
No significant valvular disease.
No significant change since the prior study of 07/27/22.
TTE 07/27/22:
CONCLUSIONS
LV ejection fraction is is approximately 50%, by visual assessment. Mid to
distal anteroseptal, mid anteroseptal, apical septal, and apical severe
hypokinesis.
Normal right ventricular size and function.
No significant valvular disease.
Compared to previous echo on 01/03/2018, there is a slight improvement in LVEF
(previously 45%).
Physical Exam
Vital Signs/Labs
Vital Signs
Temp Pulse Resp BP Pulse Ox
36.6 C 79 16 101/68 95
04/18/24 04:21 04/18/24 04:45 04/18/24 04:21 04/18/24 04:23 04/18/24 04:33
04/16/24 04/17/24 04/18/24
11:59 11:59 11:59
Actual Weight 90.4 kg 88.2 kg 86.5 kg
01/18/25 04:29
04/18/24 04:29
PT 17.2 Sec (11.4-14.6) H 04/14/24 12:04
INR 1.38 04/14/24 12:04
APTT 28.8 Sec (23.4-35.0) 04/14/24 12:04
Magnesium 2.4 mg/dl (1.6-2.3) H 04/18/24 04:29
Triglycerides 50 mg/dl (10-149) 04/08/24 06:41
LDL Cholesterol, Calc 40 mg/dl 04/08/24 06:41
VLDL Cholesterol, Calc 10 mg/dl (0-30) 04/08/24 06:41
HDL Cholesterol 41 mg/dl 04/08/24 06:41
Physical Exam
Constitutional: No acute distress and Comfortable
EENT: Anicteric and Moist mucous membranes
Cardiovascular: Rhythm & rate is regular, Pedal edema is absent, JVD pressure is normal, S1S2 is normal and Murmur/rub/gallop absent
Respiratory: Respiratory effort normal, Lungs clear to auscul., Wheeze Absent, Crackles Absent and Rhonchi Absent
GI: Soft, Distention absent, Flat, Non tender and Normal bowel sounds
Neuro/Psych: AO x 3
Data Reviewed
-
Date of Service: April 18, 2024
Medical Decision Making: Reviewed Test Results, Independent Historian Assessment and Test Interpretation
EKG: Tracing Personally Visualized and interpreted and Report Reviewed by me
Echo: Tracing Personally Visualized and interpreted and Report Reviewed by me
X-Ray/CT/US/MRI/NUC/PET: Image Personally Visualized and interpreted and Report Reviewed by me
Medical Tests (PFT, Pathology etc): Image Personally Visualized and interpreted and Report Reviewed by me
Labs: Labs Reviewed by me
Old Records: Reviewed
--- NOTE | 2024-04-18 09:00 | W.DCSUMMARY ---
Discharge Summary
Discharge Data
Date of Admission: 04/08/24
Date of Discharge: 04/18/24
Total time spent discharging patient (in min): 45
-
Pending Results: No
Hospital Course
Primary care physician:
None
Outpatient liner machine operator:
Dr. Mathias
Inpatient consultants:
CBC, Instructor Ballroom Dancing
Procedures:
1. Multi arterial coronary artery bypass grafting x 4 (In situ RÍOS to LAD, Ao to L Radial to Large Diagonal, Ao to RSVG to OM1, Ao to RSVG to RPDA)
Primary Diagnosis:
1. Multivessel Coronary Artery Disease with NSTEMI
Secondary Diagnoses:
1. Hypertension
2. Hyperlipidemia
3. Pericarditis
4. Mild ischemic cardiomyopathy
5. Acute postop atelectasis
HPI: 64-year-old male with an extensive past medical history regarding previous coronary artery disease. He underwent stenting of his LAD approximately 18 years ago and recently presented with chest discomfort and was found to have an NSTEMI.
Left heart cath revealed multivessel disease and patient was taken for a CABG with Dr. Fuentes on 04/14.
Hospital course: Patient was admitted to [facility] on 04/08 after having complaints of chest pain and ruled in for a NSTEMI with a troponin of 0.038. He was started on a heparin infusion and taken to the [facility] where severe multivessel
disease was found. He was previously on Plavix so due to the Plavix washout. Patient was taken to the OR on 04/14 for CABG. Postoperatively he returned to the CVICU on Levophed, insulin, Precedex, and Cardizem infusions for radial artery spasm
protection. Due to patient's ischemic cardiomyopathy it was switched to Cardene when he arrived to the CVICU. Patient was weaned off Precedex and was extubated by 1515. On 04/15 postoperative day 1 patient was weaned off Levophed and Cardene and
started on Norvasc for radial artery protection. Left pleural chest tube was discontinued. For pericarditis patient was started on colchicine. Patient has sinus tachycardia so his Lopressor was increased to 25 mg twice daily. On 04/16
postoperative day 2 patient was diuresed with 20 mg of IV Lasix. Epicardial wires and mediastinal chest tubes were removed. Patient remained in sinus tachycardia so his beta-peter was not once again increased. On 04/17 postoperative day 3,
Cordis was removed. He was diuresed with 40 mg of IV Lasix. Beta-blockers were increased to 50 mg twice daily and he was resumed on Entresto at a smaller dose due to his blood pressures and Farxiga. On 04/18 postoperative day 4 patient tolerating
medication regimen. He was given 40 mg of p.o. Lasix and two-view chest x-ray was stable. He was deemed stable for discharge home and his medications were sent to his preferred pharmacy.
Home medication changes:
see below
Discharge Plan
-
Patient Disposition: Home (Routine Discharge)
Discharge Diagnosis/Procedures: CABG x 4/LAVONNE clip
Condition: Good
Diet: Low Cholesterol
Activity: No strenuous activity
Driving Restrictions: Not until seen by your Dr
Bathing Restrictions: OK to Shower
Other Services: Cardiac Rehab
Specialty Instructions: Weigh Daily- Call MD for wt gain/loss 3 lbs overnight/5 lbs in 1 week
Activity Restrictions/Additional Instructions:
ACTIVITY:
-No strenuous activity: no heavy lifting, pushing, pulling anything over 15 pounds for one month
-continue to use stairs as tolerated
DRIVING RESTRICTIONS:
-No driving for one month or until approved by your surgeon
WOUND CARE:
-Shower daily. Use soap & water.
-No lotions, creams or powders on incision area.
DIET:
-continue a low fat/low cholesterol diet.
-IF you are diabetic, continue carb controlled diet.
CARDIAC REHAB:
-Please make appointment to start in 5-6 weeks with your local hospital program. (See Cardiac Rehabilitation Discharge Booklet).
SPECIALTY INSTRUCTIONS:
-Weigh yourself daily. Call your physician for any weight gain/loss of 3 lbs overnight or 5 lbs in one week.
-REPORT any clicking noise or uneven appearance of your sternum to your surgeon immediately.
-If you smoke, you are instructed to quit. The [place] smoking hotline phone number is [phone]
Referrals:
CT Transitional Care Nurse [Outside] - in one to two days
(
The Cardiothoracic Transitional Care Nurse will call you to set up a visit in 1-2 days.)
[facility] [Outside] - 05/26/24 1:00 pm
(Cardiac Rehab Orientation appointment is on May 26 at 1pm.
The Cardiac Rehab gym is located on the first floor of the [facility].)
Deven Mathias MD [Active] - 06/02/24 10:40 am (Your appointment on April 29 has been cancelled. )
Rupal Brandt DO [Family Provider] - (Please make an appointment in four to six weeks. )
Rick Fuentes MD [Active] - 05/18/24 1:15 pm
Additional Discharge Medication Instructions: please note that your dose of entresto has been decreased
Prescriptions:
New
acetaminophen 325 mg Tablet
650 mg PO Q4HPRN PRN (Reason: mild pain,headache,temp >101F ) Qty: 0 0RF
metoprolol succinate 50 mg Tablet Extended Release 24 Hr
50 mg PO BID Qty: 60 1RF
amlodipine 2.5 mg Tablet
2.5 mg PO DAILY Qty: 90 3RF
gabapentin 100 mg Capsule
100 mg PO TID PRN (Reason: post-operative pain) Qty: 60 0RF
colchicine 0.6 mg Tablet
0.3 mg PO BID Qty: 60 0RF
sacubitril-valsartan [Entresto] 24-26 mg Tablet
1 tab PO BID Qty: 60 1RF
oxycodone 5 mg Tablet
2.5 mg PO Q6HPRN PRN (Reason: severe pain) Qty: 7 0RF
dapagliflozin propanediol 10 mg Tablet
10 mg PO DAILY Qty: 60 1RF
pantoprazole [Protonix] 40 mg tablet,delayed release (DR/EC)
40 mg PO DAILY Qty: 60 3RF
Continued
clopidogrel 75 MG tablet
75 mg PO DAILY
aspirin 81 MG tablet,delayed release (DR/EC)
81 mg PO DAILY
atorvastatin [Lipitor] 40 mg Tablet
40 mg PO QPM
cyanocobalamin (vitamin B-12) 1,000 mcg Tablet
1,000 mcg PO DAILY
Discontinued
atenolol 25 MG tablet
25 mg PO DAILY
famotidine [Pepcid] 40 mg Tablet
40 mg PO HS
omeprazole 20 mg Tablet,Delayed Release (Dr/Ec)
20 mg PO DAILY
sacubitril-valsartan [Entresto] 49-51 mg Tablet
1 tab PO BID
Discharge Orders:
Discharge Patient (As Directed); Ordered 04/18/24
Ordered By: Rina Shepherd
Care Plan Goals
Care Plan Goals:
Problem: Readiness for enhanced knowledge related to diagnosis and treatment plan
Goal: Understand your diagnosis and treatment plan needs, including medications if applicable.
Instructions: Know your diagnosis, underlying causes and treatment plan options, including medications if applicable. Consult with your health care team to learn about your diagnosis and treatment plan, including medications if applicable.
Discharge Date and Time
Print Language: IVORIAN
[2024-04-18] MEDS: FARXIGA 10 MG PO (09:14)
[2024-04-18] MEDS: PACERONE 200 MG PO (09:14)
[2024-04-18] MEDS: ENTRESTO 24 MG/26 MG 1 TAB PO (09:14)
[2024-04-18] MEDS: NORVASC 2.5 MG PO (09:14)
[2024-04-18] MEDS: TOPROL XL 50 MG PO (09:14)
[2024-04-18] MEDS: SENOKOT-S 1 TABLET PO (09:15)
[2024-04-18] MEDS: PLAVIX 75 MG PO (09:15)
[2024-04-18] MEDS: MAGNESIUM OXIDE 500 MG PO (09:15)
[2024-04-18] MEDS: BACTROBAN 2% OINTMENT 1 APPLIC NASAL (09:15)
[2024-04-18] MEDS: NEURONTIN 100 MG PO (09:15)
[2024-04-18] MEDS: COLCHICINE 0.3 MG PO (09:15)
[2024-04-18] MEDS: LASIX 40 MG PO (09:15)
[2024-04-18] MEDS: PROTONIX 40 MG PO (09:16)
[2024-04-18 11:22] VITALS: BP 131/91
--- NOTE | 2024-04-18 12:45 | PTCARENOTE ---
Patient discharged via wheelchair with spouse and RN escort. Patient showered prior to discharge without issues, PIV and tele pack d/c'd. Discharge instructions reviewed with patient and spouse, verbalized understanding. Patient transferred to car
without issues.
== END 2024-04-18 12:54 | disposition home or self-care (01) | DRG 233 ==
LOC: CVICU 16:05
PROVIDERS: Anesthesiology; Internal Medicine; Internal Medicine Cardiovascular Disease; Nurse Practitioner; Physician Assistant Medical; Student in an Organized Health Care Education/Training Program; ADMITTING PHYSICIAN Internal Medicine; ATTENDING PHYSICIAN Thoracic Surgery (Cardiothoracic Vascular Surgery); CONSULT PHYSICIAN Internal Medicine Cardiovascular Disease; CONSULT PHYSICIAN Internal Medicine Critical Care Medicine; CONSULT PHYSICIAN Thoracic Surgery (Cardiothoracic Vascular Surgery); EMERGENCY PHYSICIAN Student in an Organized Health Care Education/Training Program; FAMILY PHYSICIAN Family Medicine
PROC: 4A023N7 Measurement of Cardiac Sampling and Pressure, Left Heart, Percutaneous Approach (ICD-10-PCS; 2024-04-08)
PROC: B2111ZZ Fluoroscopy of Multiple Coronary Arteries using Low Osmolar Contrast (ICD-10-PCS; 2024-04-08)
PROC: B240ZZ3 Ultrasonography of Single Coronary Artery, Intravascular (ICD-10-PCS; 2024-04-08)
PROC: 02100Z9 Bypass Coronary Artery, One Artery from Left Internal Mammary, Open Approach (ICD-10-PCS; 2024-04-14)
PROC: 02100AW Bypass Coronary Artery, One Artery from Aorta with Autologous Arterial Tissue, Open Approach (ICD-10-PCS; 2024-04-14)
PROC: 5A1221Z Performance of Cardiac Output, Continuous (ICD-10-PCS; 2024-04-14)
PROC: 021109W Bypass Coronary Artery, Two Arteries from Aorta with Autologous Venous Tissue, Open Approach (ICD-10-PCS; 2024-04-14)
PROC: 02L70CK Occlusion of Left Atrial Appendage with Extraluminal Device, Open Approach (ICD-10-PCS; 2024-04-14)
PROC: 06BP4ZZ Excision of Right Saphenous Vein, Percutaneous Endoscopic Approach (ICD-10-PCS; 2024-04-14)
PROC: 03BC4ZZ Excision of Left Radial Artery, Percutaneous Endoscopic Approach (ICD-10-PCS; 2024-04-14)
PROC: B24BZZ4 Ultrasonography of Heart with Aorta, Transesophageal (ICD-10-PCS; 2024-04-14)
DX: T82.855A Stenosis of coronary artery stent, initial encounter (principal); I21.4 Non-ST elevation (NSTEMI) myocardial infarction; I50.22 Chronic systolic (congestive) heart failure; D62 Acute posthemorrhagic anemia; J98.11 Atelectasis; I30.9 Acute pericarditis, unspecified; I11.0 Hypertensive heart disease with heart failure; I25.10 Atherosclerotic heart disease of native coronary artery without angina pectoris; I25.5 Ischemic cardiomyopathy; E78.00 Pure hypercholesterolemia, unspecified; R73.9 Hyperglycemia, unspecified; R10.9 Unspecified abdominal pain; Y83.1 Surgical operation with implant of artificial internal device as the cause of abnormal reaction of the patient, or of later complication, without mention of misadventure at the time of the procedure; Y71.3 Surgical instruments, materials and cardiovascular devices (including sutures) associated with adverse incidents; Z79.02 Long term (current) use of antithrombotics/antiplatelets; Z79.82 Long term (current) use of aspirin; Z79.899 Other long term (current) drug therapy; Z82.49 Family history of ischemic heart disease and other diseases of the circulatory system; Z95.5 Presence of coronary angioplasty implant and graft
CPT/HCPCS: 71045; 71046; 71250; 80048; 80053; 80061; 81003; 81015; 82247; 82248; 82330; 82565; 82805; 82947; 82962; 83036; 83735; 84132; 84302; 84484; 84520; 85014; 85018; 85025; 85027; 85049; 85347; 85610; 85730; 86850; 86900; 86901; 86920; 87070; 92978; 93005; 93306; 93312; 93320; 93325; 93458; 93880; 93923; 93931; 94002; 96374; 99152; 99153; 99285; C1753; C1760; C1894; J2916; Q9967

== ENCOUNTER 2024-05-29 17:14 | Outpatient (RCR) | payer BC, SELFPAY | END 2024-05-29 23:59 | disposition home or self-care (01) | LOC: CRHB 17:14 | PROVIDERS: ATTENDING PHYSICIAN Internal Medicine Cardiovascular Disease; FAMILY PHYSICIAN Family Medicine | DX: Z95.1 Presence of aortocoronary bypass graft (principal); I25.10 Atherosclerotic heart disease of native coronary artery without angina pectoris (principal) | CPT/HCPCS: 93797; 93798 ==

== ENCOUNTER 2024-06-29 17:00 | Outpatient (RCR) | payer BC, SELFPAY | END 2024-06-29 23:59 | disposition home or self-care (01) | LOC: CRHB 17:00 | PROVIDERS: ATTENDING PHYSICIAN Internal Medicine Cardiovascular Disease; FAMILY PHYSICIAN Family Medicine | DX: I25.10 Atherosclerotic heart disease of native coronary artery without angina pectoris (principal); Z95.1 Presence of aortocoronary bypass graft (principal) | CPT/HCPCS: 93797; 93798 ==

== ENCOUNTER 2024-07-06 17:48 | Outpatient (RCR) | payer BC, SELFPAY | END 2024-07-06 17:52 | disposition home or self-care (01) | LOC: CRHB 17:48 | PROVIDERS: ATTENDING PHYSICIAN Internal Medicine Cardiovascular Disease; FAMILY PHYSICIAN Family Medicine | DX: Z95.1 Presence of aortocoronary bypass graft (principal); I25.10 Atherosclerotic heart disease of native coronary artery without angina pectoris | CPT/HCPCS: 93797; 93798 ==

== ENCOUNTER 2024-10-27 22:47 | Emergency (ER) | payer BC, SELFPAY ==
[2024-10-27 22:48] VITALS: BP 156/106
[2024-10-27 23:01] LABS: Hematocrit 48.4 % (39.0-52.0); Hemoglobin 16.6 g/dL (13.0-18.0); Mean Corp Hgb Conc. 34.3 g/dL (33.0-37.0); Mean Corpuscular Volume 80.8 fL (80.0-94.0); Nucleated Red Blood Cells % 0 % (-); Platelet Count 185 10^3/uL (130-400); Red Cell Dist. Width 15.6 % (11.5-14.5)
[2024-10-27 23:24] LABS: ALT (SGPT) 22 U/L (0-50); AST (SGOT) 22 U/L (17-59); Albumin 4.7 g/dl (3.5-5.0); Alkaline Phosphatase 93 U/L (38-126); Blood Urea Nitrogen 19 mg/dl (9-20); Calcium 9.8 mg/dl (8.4-10.2); Carbon Dioxide 29 mmol/L (22-30); Chloride 104 mmol/L (98-107); Glucose 103 mg/dl (70-99); Potassium 4.2 mmol/L (3.5-5.1); Sodium 139 mmol/L (135-145); Total Protein 7.3 g/dl (6.3-8.2); eGFR > 60.00
[2024-10-27 23:33] LABS: Troponin I 0.021 ng/ml
[2024-10-28 01:02] VITALS: BP 117/91
[2024-10-28 01:54] VITALS: BMI 25.9
[2024-10-28 02:00] VITALS: BP 156/98
--- NOTE | 2024-10-28 02:20 | ED.GENMED ---
History of Present Illness
General
Chief Complaint: Cardiac Symptoms
Source: patient
Exam Limitations: none
Time Seen by Provider: 10/28/24 01:56
Nursing documentation reviewed up to this point in time: agreed with
History of Present Illness
History of Present Illness:
Note:
CHIEF COMPLAINT(S)
Lightheadedness and left arm numbness.
HISTORY OF PRESENT ILLNESS
The patient is a 64-year-old male with a significant cardiac history, including previous coronary artery bypass graft surgery and stent placement, presenting with episodes of lightheadedness and left arm numbness. The patient reports that these
symptoms occur primarily after standing from a sitting position, such as on a couch, and typically resolve within a few seconds after stopping movement. Patient reports that this is a common symptom for him when he stands up too fast and has had
this for months. However, during the most recent episode, the patient experienced persistent numbness in the left arm, described as tingling, extending from the shoulder to the hand. This prompted the patient to seek medical evaluation due to
concerns about a potential heart attack or stroke, given his cardiac history. The patient denies associated chest pain, headache, neck pain, passing out, difficulty walking, double vision, weakness, or facial symptoms during these episodes. There is
no recent increase in physical activity that could account for the symptoms, and the patient does not report any changes in his workout routine, which includes weightlifting. The symptoms of tingling resolved before my evaluation. The patient did
not experience any exertional chest pain recently and is compliant with his cardiac medications, including blood thinners and cholesterol-lowering agents.
PHYSICAL EXAM
Nursing notes reviewed and vital signs reviewed.
General: Patient is well appearing and in no acute distress; non-toxic
Skin: Warm and dry, no rashes or lesions
Head: Normocephalic, atraumatic
Eyes: Sclera non-icteric. EOMs intact.
Cardiac: Regular rate and rhythm, no murmurs, no tenderness to palpation
Peripheral Vascular: No lower extremity swelling or edema
Pulm: Normal respiratory effort, no wheezes, rales, or rhonchi
Abdomen: No abdominal tenderness to palpation
Neuro: CN II-XII intact, no focal neurologic deficits.
Psychiatric: Appropriate mood and affect.
PLAN
The patient is currently under observation for potential cardiac etiology of symptoms. Initial electrocardiogram (EKG) results were normal, and troponin levels were undetectable. The emergency department team plans to repeat the troponin test and
perform a repeat EKG to rule out any cardiac ischemia.
DIFFERENTIAL DIAGNOSIS
The Differential Diagnosis includes, in no particular order and is not limited to:
1. Orthostatic hypotension
2. TIA (Transient Ischemic Attack)
3. Cardiac arrhythmia
4. Myocardial ischemia
5. Peripheral neuropathy
6. Cervical radiculopathy
7. Positional vertigo
8. Hyperventilation syndrome
9. Anxiety
10. Medication side effects
MDM/DISPOSITION
The patient is a 64-year-old male with a significant cardiac history, including previous coronary artery bypass graft surgery and stent placement, presenting with episodes of lightheadedness and left arm numbness. The patient reports that these
symptoms occur primarily after standing from a sitting position, such as on a couch, and typically resolve within a few seconds after stopping movement. What concerned him today was that he had an episode of left arm paresthesias lasting 3 hours
that has since subsided. On physical exam, he is well appearing in no acute distress. He has a non-focal neurologic exam. No motor or sensory deficits in the left upper extremity. ECG shows sinus rate 64 no ischemic changes on initial or repeat. Do
not suspect that symptoms represent TIA. Patient is on dual antiplatelet therapy. Discussed strict return precautions and follow up with PCP.Case reviewed with ED attending. Patient stable for discharge.
Past History
Past History
ED Past Medical History: CAD, HTN, Hypercholesterolemia and CT
ED Past Surgical History: Cardiac (stents x2, revised once, Amy)
Social History
Tobacco: Non-smoker
Alcohol: Occasional
Drug: None
Personal:
Living: with family
Phy Exam
Physical Exam
Physical Exam:
see hpi
Course
Orders/Labs/Results
Orders:
Orders
10/27/24 22:51
Electrocardiogram (*1) Urgent
Reason for Study: Vertigo / Dizzy
EKG- Treatment ONCE
10/27/24 22:56
Complete Blood Count/With Diff Urgent
Comprehensive Metabolic Panel Urgent
Troponin I Urgent
10/28/24 01:03
EKG- Treatment ONCE
10/28/24 01:59
Troponin I Urgent
10/28/24 02:00
EKG [Electrocardiogram (*1)] Urgent
Reason for Study: Chest Pain
Abnormal Lab Results
10/27/24
22:56
RDW 15.6 H %
(11.5-14.5)
Glucose 103 H mg/dl
(70-99)
10/27/24 22:56
10/27/24 22:56
Vital Signs
Initial and Last Documented VS:
Initial Vital Signs
Temp Pulse Resp BP Pulse Ox
98.0 F 71 16 156/106 97
10/27/24 22:48 10/27/24 22:48 10/27/24 22:48 10/27/24 22:48 10/27/24 22:48
Last Documented Vital Signs
Temp Pulse Resp BP Pulse Ox
98.0 F 55 12 131/88 100
10/27/24 22:48 10/28/24 03:00 10/28/24 03:00 10/28/24 03:00 10/28/24 02:21
*Pulse Oximetry
SaO2: 100
Oxygen Mode of Delivery: Room air
Patient hypoxic: no
*Critical Care Note
Total Time (30-74mins, 75-104mins- exclusive of procedures): Not Applicable
ED Attending Note
-
Portions of this chart may have been created with voice recognition software.� Occasional wrong word or��sound alike� substitutions may have occurred due to the inherent limitations of voice recognition software.
Discharge Plan
Departure
Patient Disposition: Home (Routine Discharge)
Date of Disposition: 10/28/24
Time of Disposition: 03:19
Patient with high blood pressure during this ER visit?: Yes
Condition: Good
Discharge Problem:
Paresthesia of left arm, Episodic lightheadedness
Instructions: Hand Numbness, Dizziness in adults - ED discharge instructions, BLOOD PRESSURE
Prescriptions:
No Action
clopidogrel 75 MG tablet
75 mg PO DAILY
aspirin 81 MG tablet,delayed release (DR/EC)
81 mg PO DAILY
atorvastatin [Lipitor] 40 mg Tablet
40 mg PO QPM
cyanocobalamin (vitamin B-12) 1,000 mcg Tablet
1,000 mcg PO DAILY
acetaminophen 325 mg Tablet
650 mg PO Q4HPRN PRN (Reason: mild pain,headache,temp >101F ) Qty: 0 0RF
metoprolol succinate 50 mg Tablet Extended Release 24 Hr
50 mg PO BID Qty: 60 1RF
amlodipine 2.5 mg Tablet
2.5 mg PO DAILY Qty: 90 3RF
gabapentin 100 mg Capsule
100 mg PO TID PRN (Reason: post-operative pain) Qty: 60 0RF
colchicine 0.6 mg Tablet
0.3 mg PO BID Qty: 60 0RF
sacubitril-valsartan [Entresto] 24-26 mg Tablet
1 tab PO BID Qty: 60 1RF
oxycodone 5 mg Tablet
2.5 mg PO Q6HPRN PRN (Reason: severe pain) Qty: 7 0RF
dapagliflozin propanediol 10 mg Tablet
10 mg PO DAILY Qty: 60 1RF
pantoprazole [Protonix] 40 mg tablet,delayed release (DR/EC)
40 mg PO DAILY Qty: 60 3RF
Referrals:
Rupal Brandt DO [Family Provider, Family Practice]
Activity Restrictions/Additional Instructions:
Please follow-up with your primary care provider. 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 PLEASE RETURN EMERGENCY DEPARTMENT TO DEVELOP WEAKNESS IN ONE-SIDED BODY VERSUS OTHER, INABILITY AMBULATE, CONFUSION, DIFFICULTY SPEAKING, DOUBLE VISION,
BLURRY VISION, FAINTING SPELLS, HEADACHE WITH NECK PAIN, FEVERS OR CHILLS, OR ANY OTHER SIGNS OR SYMPTOMS WORRISOME TO YOU.
Interventions
Interventions:
*Risk Screen - Suicide Last Done: 10/28/24 01:54
*General Assessment Last Done: 10/28/24 01:54
*Neglect/Abuse Screening Last Done: 10/28/24 01:54
*ED- Fall Risk Assessment Last Done: 10/28/24 01:54
*ED COVID-19 Vaccine History Last Done: 10/28/24 01:54
*Nursing Disposition Last Done: 10/28/24 03:34
ED- Pulmonary Assessment Last Done: 10/28/24 01:54
ED- Cardiac Assessment Last Done: 10/28/24 01:54
Discharge Date and Time
Discharge Date/Time: 10/28/24 03:37
Print Language: CITIZEN OF [place]
[2024-10-28 02:42] LABS: Troponin I 0.015 ng/ml
[2024-10-28 03:00] VITALS: BP 131/88
== END 2024-10-28 03:37 | disposition home or self-care (01) ==
LOC: EMR 22:47
PROVIDERS: Emergency Medicine; EMERGENCY PHYSICIAN Emergency Medicine; FAMILY PHYSICIAN Family Medicine
DX: R20.2 Paresthesia of skin (principal); R42 Dizziness and giddiness; E78.00 Pure hypercholesterolemia, unspecified; I10 Essential (primary) hypertension; I25.10 Atherosclerotic heart disease of native coronary artery without angina pectoris; I25.2 Old myocardial infarction; Z95.1 Presence of aortocoronary bypass graft; Z95.5 Presence of coronary angioplasty implant and graft
CPT/HCPCS: 99284; 80053; 84484; 85025; 93005

== ENCOUNTER → 2024-11-02 16:48 | Outpatient (REF) | payer BC, SELFPAY | LOC: RAD 16:48 | PROVIDERS: ATTENDING PHYSICIAN Family Medicine | DX: R20.0 Anesthesia of skin (principal); R42 Dizziness and giddiness; I25.5 Ischemic cardiomyopathy | CPT/HCPCS: 70496; 70498; Q9967 ==

== ENCOUNTER → 2024-11-05 14:32 | Outpatient (REF) | payer BC, SELFPAY | LOC: RCS 14:32 | PROVIDERS: ATTENDING PHYSICIAN Internal Medicine Cardiovascular Disease; FAMILY PHYSICIAN Family Medicine | DX: I25.5 Ischemic cardiomyopathy (principal) | CPT/HCPCS: 93306 ==

== ENCOUNTER → 2024-11-19 14:11 | Outpatient (REF) | payer BC, SELFPAY | LOC: RAD 14:11 | PROVIDERS: ATTENDING PHYSICIAN Family Medicine | DX: E04.1 Nontoxic single thyroid nodule (principal) | CPT/HCPCS: 76536 ==